=== PATIENT | female | born 1970 | race Caucasian/White ===

== ENCOUNTER 2016-12-31 10:41 | Emergency (ER) | payer MEDICARE, MEDICAID ==
[~2016-12-31] VITALS: Ht 162.6 cm; Wt 104.3 kg
[~2016-12-31 10:41] MED LIST: CEFD300C3 PO; CETI10TA17 PO; CETI10TA20 PO; CYCL10TA9 PO; DIAZ-345 PO; DIAZ5TAB3 PO; DOXY100C2 PO; HYDR-3729 PO; HYDR200T PO; HYDR200T46 PO; IBUP-1773 PO; METH20TA PO; Metoprolol Succinate PO; NAPR-243 PO; NAPR550T PO; NF-DICLOTA PO; NF-PILO5T PO; OMEP40CA36 PO; ONDA4TAB10 PO; OXYC-471 PO; PHEN37.53 PO; PILO5TAB PO; PRD10T PO; PRED20TA PO; RT-ALBUINH IH; SUMA5SPR2 NS; VALA1000 PO
--- OUTSIDE RECORDS SUMMARY | 2016-12-31 10:49 | XMS REPORT | Continuity of Care Document ---
Author Author [facility] Organization [facility] Address Unknown Phone Unavailable Care Team Providers Care Finishing Lab Technician Name Role Phone Oleksandr Perry PCP [phone] Source Comments Some departments are not documenting in the electronic medical record. If you do not see the information that you expected, contact Release of Information in the Health Information Management department at [phone] for further assistance in locating additional records.[facility] Active Allergies and Adverse Reactions Allergen Noted Date Severity Reactions Comments Amitriptyline 10/16/2016 Low SEE COMMENTS Pt states made her "depressed, crying, emotional" [place] 10/10/2016 Medium MENTAL STATUS CHANGES Current Medications Prescription Sig. Disp. Refills Start End Date Status Date cetirizine (ZYRTEC) 10 mg Take 10 mg by mouth every Active tablet morning. hydroxychloroquine Take 200 mg by mouth Active (PLAQUENIL) 200 mg tablet twice daily. Take with food. omeprazole DR(+) Take 40 mg by mouth daily Active (PRILOSEC) 40 mg capsule before breakfast. albuterol (PROAIR HFA) 90 Inhale 2 Puffs by mouth Active mcg/actuation inhaler into the lungs every 4 hours as needed for Wheezing or Shortness of Breath. Shake well before use. cyclobenzaprine Take 10 mg by mouth three Active (FLEXERIL) 10 mg tablet times daily as needed for Muscle Cramps. traMADol (ULTRAM) 50 mg Take 50 mg by mouth every Active tablet 6 hours as needed for Pain. SUMAtriptan(+) (IMITREX) Apply 1 [place] to one Active 5 mg/1 mL spry nostril as directed as Needed (migraines). Indications: MIGRAINE rivaroxaban (XARELTO) 15 Take 15mg by mouth TWICE 36 Tab 0 10/22/19 Active mg tablet DAILY until 11/09/15 then 17 switch to 20mg ONCE DAILY for a total length of therapy of 3 months. Take with food. aspirin/acetaminophen/caf Take 1-2 Tabs by mouth 30 Tab 0 10/22/19 Active feine(+) (EXCEDRIN every 8 hours as needed. 17 MIGRAINE) 250/250/65 mg tab rivaroxaban (XARELTO) 20 Take 1 Tab by mouth daily 67 Tab 0 11/09/19 01/16/20 Active mg tablet with dinner for 67 doses. 17 17 Begin after finished with 15mg by twice daily dosing. calcium carbonate/vitamin Take 1 Tab by mouth twice 60 Tab 1 10/22/19 Active D-3 (OSCAL-500+D) 1250 daily. Calcium Carb 17 mg/200 unit tablet 1250mg delivers 500mg elemental Ca melatonin 5 mg tab Take 1 Tab by mouth at 30 Tab 0 10/22/19 Active bedtime daily. 17 potassium chloride SR Take 1 Tab by mouth 30 Cap 3 11/05/19 Active (K-DUR) 20 mEq tablet daily. Take with a meal 17 and a full glass of water. albuterol 0.5% Inhale 2.5 mg solution by Active (PROVENTIL; VENTOLIN) 2.5 nebulizer as directed mg/0.5 mL nebulizer every 6 hours as needed solution for Shortness of Breath or Wheezing. furosemide (LASIX) 80 mg Take 1 Tab by mouth twice 60 Tab 11 11/07/19 Active tablet daily. 17 metOLazone (ZAROXOLYN) Take 1 Tab by mouth 10 Tab 0 11/23/19 Active 2.5 mg tablet daily. Take 1 tab 11/23, 1 17 tab 2/13 amoxicillin/K clavulanate Take 1 Tab by mouth every Active (AUGMENTIN) 875/125 mg 12 hours. Take with food. tablet mycophenolate mofetil Take on an empty stomach. 180 Tab 3 11/27/19 Active (CELLCEPT) 500 mg tablet Start with 1 tab once 17 daily and titrate up as directed diclofenac(+) (VOLTAREN) Apply 2 g topically to 3 Tube 3 11/29/19 Active 1 % topical gel affected area four times 17 daily as needed. Apply to bilateral hands. sulfamethoxazole-trimetho Take 1 tab daily three 12 Tab 1 11/30/19 Active prim (BACTRIM DS) 800-160 times per week. 17 mg tablet prednisone (DELTASONE) 20 Take along with 10mg 60 Tab 0 12/04/19 Active mg tablet tabs. Taper: 50mg daily 17 for 1 week, 40mg daily for 2 weeks, 30mg daily for 2 weeks, then by 5mg every 2 weeks prednisone (DELTASONE) 10 Take along with 20mg 60 Tab 0 12/04/19 Active mg tablet tabs. Taper: 50mg daily 17 for 1 week, 40mg daily for 2 weeks, 30mg daily for 2 weeks, then by 5mg every 2 weeks sacubitril/valsartan Take 1 Tab by mouth twice 60 Tab 11 12/07/19 Active (ENTRESTO) 49/51 mg daily. Take 1/2 tab in 17 tablet the AM the next 5 days and 1 tab in PM. Increase to 1 tab twice daily if you tolerate dose. spironolactone Take 1 Tab by mouth 30 Tab 11 12/18/19 Active (ALDACTONE) 25 mg tablet daily. Take with food. 17 metoprolol XL (TOPROL XL) Take 1 Tab by mouth twice 60 Tab 11 Active 50 mg extended release daily. 17 tablet magnesium oxide (MAG-OX) Take 1 Tab by mouth twice 60 Tab 11 12/18/19 Active 400 mg tablet daily. 17 gabapentin (NEURONTIN) Take 2 Caps by mouth 120 Cap 1 12/25/19 Active 100 mg capsule twice daily. 17 metoprolol XL (TOPROL XL) Take 1 Tab by mouth twice 60 Tab 1 10/22/19 12/18/19 Discontin 50 mg extended release daily. 17 17 ued tablet gabapentin (NEURONTIN) Take 2 Caps by mouth 120 Cap 1 10/22/1912/24 Discontin 100 mg capsule twice daily. 17 17 ued magnesium oxide (MAG-OX) Take 1 Tab by mouth twice 60 Tab 1 10/22/19 12/18/19 Discontin 400 mg tablet daily. 17 17 ued spironolactone Take 1 Tab by mouth 30 Tab 1 10/22/19 12/18/19 Discontin (ALDACTONE) 25 mg tablet daily. Take with food. 17 17 ued sacubitril/valsartan Take 1 Tab by mouth twice 60 Tab 3 11/07/19 Discontin (ENTRESTO) 24/26 mg daily. 17 17 ued tablet prednisone (DELTASONE) 20 Take 3 Tabs by mouth 30 Tab 0 11/21/19 Discontin mg tablet daily. 17 17 ued Active Problems Problem Noted Date Chronic systolic congestive heart failure, NYHA class 2 ([facility]) 12/06/2016 Thyroid nodule 11/29/2016 Overview: 7 mm on the right and 4 mm on the left on US 10/17/2016 DELLA (acute kidney injury) ([facility]) 11/08/2016 Patient is Zoroastrianism 10/19/2016 Acute subclavian vein thrombosis ([facility]) 10/19/2016 Chronic anticoagulation 10/19/2016 Myocarditis ([facility]) 10/18/2016 Acute systolic congestive heart failure ([facility]) 10/16/2016 Rheumatoid arthritis ([facility]) 10/12/2016 Severe mitral valve regurgitation 10/11/2016 Systemic lupus erythematosus ([facility]) 10/11/2016 Chronic rheumatic arthritis ([facility]) 10/11/2016 Tricuspid regurgitation 10/11/2016 HALILE on CPAP 10/11/2016 Migraines 10/11/2016 GERD (gastroesophageal reflux disease) 10/11/2016 Tachycardia 10/11/2016 Sepsis ([facility]) 10/11/2016 Most Recent Encounters Date Type Specialty Providers Description 12/25/2016 Telephone Allergy,Immunology and Garfield Pierre MD Other - blood in stool Rheumatology 12/25/2016 Telephone Cardiology Mer Styles LPN Other 12/24/2016 Refill Cardiology Mirian Lu RN Medication Refill 12/18/2016 Hospital Cardiology Abdi Lerma MD Encounter 12/18/2016 Ancillary Cardiology Abdi Lerma MD At risk for sudden Orders cardiac (Primary Dx) 12/17/2016 Telephone Cardiology Leann Logan, CAROLD Medication Request - Refills 12/07/2016 Telephone Cardiology Diamond Shannon, shaker out Question - Entresto 12/07/2016 Refill Cardiology Kimberlyn Sanders RN Medication Refill 12/06/2016 Office Visit Cardiology Deshaun Okeefe MD Heart Failure - 1 month f/u 12/06/2016 Documentation Cardiology Vivek Torrez RN 12/04/2016 Telephone Cardiology Marimar Gar Other 12/04/2016 Refill Allergy,Immunology and Garfield Pierre MD Rheumatology 11/30/2016 Telephone Allergy,Immunology and Garfield Pierre MD Medication Follow-up Rheumatology 11/28/2016 Telephone Cardiology Mirian Lu RN 11/28/2016 Telephone Allergy,Immunology and Garfield Pierre MD Medication Follow-up - Rheumatology Cellcept and Prednisone 11/28/2016 Telephone Cardiology Leann Logan, CAROLD Medication Question - Voltaren Use 11/27/2016 Office Visit Endocrinology Jorge John MD Thyroiditis , acute (Primary Dx); On prednisone therapy; Thyroid nodule; Adrenal insufficiency due to corticosteroid withdrawal (HCC); At risk for osteoporosis/osteopenia 11/27/2016 Office Visit Allergy,Immunology and Garfield Pierre MD Other systemic lupus Rheumatology erythematosus with other organ involvement (HCC) (Primary Dx); Acute rheumatic myocarditis; Polyarthralgia; Medication monitoring encounter 11/27/2016 Documentation Cardiology Mirian Lu, JAI Labs Only - T4 free 11/22/2016 Telephone Cardiology Diamond Shannon RN 11/22/2016 Telephone Terri Burgos RN Follow-up Phone Call 11/21/2016 Telephone Cardiology Es Nichols PHARMD Medication Problem - Out of prednisone 11/21/2016 Refill Allergy,Immunology and Kelsea Harper MD Rheumatology 11/19/2016 Documentation Cardiology Mirian Lu, JAI Labs Only 11/13/2016 Hospital Cardiology Abdi Lerma MD Encounter 11/13/2016 Telephone Cardiology Diamond Shannon RNcard hand 11/13/2016 Ancillary Cardiology Abdi Lerma MD At risk for sudden Orders cardiac (Primary Dx) 11/09/2016 Documentation Cardiology Mirian Lu RNcard hand - Entresto approved 11/08/2016 Telephone Cardiology Vivek Torrez RN 11/08/2016 Documentation Cardiology Lashay Gómez RN Lab Results - T3 11/07/2016 Office Visit Cardiology Abdi Lerma MD Post- hospital Follow Up - Deshaun Okeefe MD Acute systolic heart failure 2 weeks ago 11/07/2016 Office Visit Nephrology Brooke Timmons MD Other systemic lupus erythematosus with other organ involvement (HCC) (Primary Dx); Acute systolic congestive heart failure (HCC); Acute rheumatic myocarditis; Acute subclavian vein thrombosis, right; DELLA (acute kidney injury) ([facility]) 11/07/2016 Documentation Cardiology Joanne Chaudhry, JAI Research - Enroll[facility] HF Registry 11/05/2016 Documentation Cardiology Mirian Lu, JAI Labs Only - BMP 11/02/2016 Telephone Cardiology Kimberlyn Sanders RN Worsening Symptoms 11/01/2016 Telephone Terri Burgos RN Follow-up Phone Call 10/24/2016 Telephone Terri Burgos RN Follow-up Phone Call 10/22/2016 Telephone Allergy,Immunology and Kelesa Harper MD Appointment Rheumatology 10/18/2016 Orders Only Endocrinology, Metabolism Myranda Rodriguez MD Thyrotoxicosis, acute & Genetics (Primary Dx) 10/12/2016 Surgery Cardiology Cath, Physician Right Heart Catheterization 10/11/2016 Anesthesia Cardiology Lindsay Styles MD Event 10/10/2016 [facility] Trav Kim MD Acute systolic congestive - Encounter Bal Kim MBBS heart failure ([facility]) 10/22/2016 Seth Hdez MD Genton, Randall E, MD Haglund, Nicholas A, MD Freeman, Jonathan, MD Social History Tobacco Use Types Packs/Day Years Used Date Former Smoker Cigarettes 2 5 Quit: 10/10/2009 Smokeless Tobacco: Never Used Alcohol Use Drinks/Week oz/Week Comments No Last Filed Vital Signs Vital Sign Reading Time Taken Blood Pressure 96/72 12/06/2016 10:31 AM [employer]IC [employer]QU[employer]KER Pulse 86 12/06/2016 10:31 AM [employer] Temperature 36.5 C (97.7 F) 11/27/2016 9:29 AM [employer] Respiratory Rate 16 11/27/2016 9:29 AM [employer] Height 1.626 m (5' 4") 12/06/2016 10:31 AM [employer] Weight 98.431 kg (217 lb) 12/06/2016 10:31 AM [employer] Body Mass Index 37.23 12/06/2016 10:31 AM [employer] Oxygen Saturation 98% 12/06/2016 10:31 AM [employer] Plan of Care Date Type Specialty Providers Description 02/13/2017 Appoint[place] [address] [place] [address] [address] [place] [address] [phone] (Fax) 02/15/2017 Appointment Allergy,Immunology and Garfield Pierre MD Rheumatology [address] [facility] [address] [place] [address] [phone] (Fax) 05/07/2017 Appointment Nephrology Brooke Timmons MD [address] [facility] [address] [place] [address] [phone] (Fax) 05/28/2017 Appointment Endocrinology Jorge John MD [address] [facility] [address] [place] [address] [phone] (Fax) Health Maintenance Due Date Last Done Comments Physical (Comprehensive) 1979 Exam Pertussis Vaccine 1983 Tetanus Vaccine 1989 Cervical Cancer Screening 1993 Breast Cancer Screening 2012 Influenza Vaccine 06/14/2017 Procedures from Last 3 Months Procedure Name Priority Date/Time Associated Diagnosis Comments PROCEDURE RECORD-SCAN 11/28/2016 Results for this 1:05 PM [employer] procedure are in the results section. ECG UNCONFIRMED-SCAN 10/23/2016 Results for this 12:20 PM [employer] procedure are in the results section. ECG UNCONFIRMED-SCAN 10/23/2016 Results for this 12:20 PM [employer] procedure are in the results section. ECG UNCONFIRMED-SCAN 10/23/2016 Results for this 12:20 PM [employer] procedure are in the results section. TELEMETRY STRIPS-SCAN 10/23/2016 Results for this 12:14 PM [employer] procedure are in the results section. ECG-SCAN 10/20/2016 Results for this 1:16 PM [employer] procedure are in the results section. ECG-SCAN 10/12/2016 Results for this 7:19 AM [employer]IC [employer]QUOR [employer]KER procedure are in the results section. ECG-SCAN 10/12/2016 Results for this 7:19 AM [employer]IC [employer]QUOR [employer] procedure are in the results section. Results from Last 3 Months WEARABLE DEFIBRILLATOR INTERROGATION (12/18/2016 10:47 AM)Only the most recent of 2 results within the time period is included. Narrative [12/18/2016 10:49:12 AM - MARIMAR ROBISON] LifeVest download completed, no treatment events noted. Pt has had an average daily wear time of 21.53 hrs/day and has had 2 wear time alerts since last report. Forwarded to Dr. Lerma for co-signature. See scanned HRM Data Sheet for wear time report details. PROCEDURE RECORD-SCAN (11/28/2016 1:05 PM) Narrative Ordered by an unspecified provider. FREE T4 (FREE THYROXINE) ONLY (11/23/2016)Only the most recent of 5 results within the time period is included. Component Value Range T4-Free 1.08 0.75-1.7 Specimen Blood TSH WITH FREE T4 REFLEX (11/16/2016)Only the most recent of 2 results within the time period is included. Component Value Range TSH 0.41 T4-Free 1.23 Specimen Blood BASIC METABOLIC PANEL (11/16/2016)Only the most recent of 4 results within the time period is included. Component Value Range Sodium 136 Potassium 4.3 Chloride 94 (A) 98-107 CO2 28 Blood Urea Nitrogen 35 (A) 6-20 Creatinine 0.95 Glucose 93 Calcium 8.7 eGFR Non 60 eGFR 60 Anion Gap 14 Specimen Blood TOTAL T3 (TRIIODOTHYRONINE) (11/16/2016)Only the most recent of 4 results within the time period is included. Component Value Range T3 (Total) 55 (A) 80-200 Specimen Blood Narrative Last OV with AJS 11/07.Next OV 12/06/16.Routing to [facility] for review. POC URINE DIPSTICK MANUAL READ (11/07/2016) Component Value Range Urine Glucose POC norm Urine Bilirubin POC neg Urine Ketone POC neg Urine Specific [place] 1.015 POC Urine Blood POC 250 Urine PH POC 7 Urine Protein POC neg Urine Urobilinogen POC norm Urine Nitrite POC neg Urine Leukocytes POC neg Specimen Urine ECG UNCONFIRMED-SCAN (10/23/2016 12:20 PM) Narrative Ordered by an unspecified provider. ECG UNCONFIRMED-SCAN (10/23/2016 12:20 PM) Narrative Ordered by an unspecified provider. ECG UNCONFIRMED-SCAN (10/23/2016 12:20 PM) Narrative Ordered by an unspecified provider. TELEMETRY STRIPS-SCAN (10/23/2016 12:14 PM) Narrative Ordered by an unspecified provider. IRON + BINDING CAPACITY + %SAT (10/22/2016 6:16 AM) Component Value Range Iron 43 (L) 50-160 MCG/DL Iron Binding-TIBC 402 (H) 270-380 MCG/DL % Saturation 11 (L) 28-42 % CBC (10/22/2016 6:16 AM)Only the most recent of 3 results within the time period is included. Component Value Range White Blood Cells 10.2 4.5-11.0 K/UL RBC 3.18 (L) 4.0-5.0 M/UL Hemoglobin 9.8 (L) 12.0-15.0 GM/DL Hematocrit 29.7 (L) 36-45 % MCV 93.5 80-100 FL MCH 30.8 26-34 PG MCHC 32.9 32.0-36.0 G/DL RDW 13.5 11-15 % Platelet Count 220 150-400 K/UL MPV 8.1 7-11 FL Specimen Blood MAGNESIUM (10/22/2016 6:16 AM)Only the most recent of 10 results within the time period is included. Component Value Range Magnesium 1.8 1.6-2.6 mg/dL Specimen Blood COMPREHENSIVE METABOLIC PANEL (10/22/2016 6:16 AM)Only the most recent of 13 results within the time period is included. Component Value Range Sodium 136 (L) 137-147 MMOL/L Potassium 3.7 3.5-5.1 MMOL/L Chloride 96 (L) 98-110 MMOL/L Glucose 142 (H) 70-100 MG/DL Blood Urea Nitrogen 39 (H) 7-25 MG/DL Creatinine 1.45 (H) 0.4-1.00 MG/DL Calcium 9.6 8.5-10.6 MG/DL Total Protein 6.7 6.0-8.0 G/DL Total Bilirubin 0.3 0.3-1.2 MG/DL Albumin 3.4 (L) 3.5-5.0 G/DL Alk Phosphatase 113 (H) 25-110 U/L AST (SGOT) 31 7-40 U/L CO2 31 (H) 21-30 MMOL/L ALT (SGPT) 140 (H) 7-56 U/L Anion Gap 9 3-12 eGFR Non 39 (L)Comment: >60 mL/min The eGFR is not validated for use in drug dosing adjustments. Continue to use estimated creatinine clearance per dosing reference text. Please contact the Clinical Pharmacist for questions. eGFR 47 (L)Comment: >60 mL/min The eGFR is not validated for use in drug dosing adjustments. Continue to use estimated creatinine clearance per dosing reference text. Please contact the Clinical Pharmacist for questions. Specimen Blood ECG-SCAN (10/20/2016 1:16 PM) Narrative Ordered by an unspecified provider. CBC AND DIFF (10/20/2016 5:30 AM)Only the most recent of 11 results within the time period is included. Component Value Range White Blood Cells 8.5 4.5-11.0 K/UL RBC 2.93 (L) 4.0-5.0 M/UL Hemoglobin 8.9 (L) 12.0-15.0 GM/DL Hematocrit 26.7 (L) 36-45 % MCV 91.3 80-100 FL MCH 30.3 26-34 PG MCHC 33.2 32.0-36.0 G/DL RDW 13.6 11-15 % Platelet Count 210 150-400 K/UL MPV 8.4 7-11 FL Neutrophils 89 (H) 41-77 % Lymphocytes 8 (L) 24-44 % Monocytes 3 (L) 4-12 % Eosinophils 0 0-5 % Basophils 0 0-2 % Absolute Neutrophil Count 7.60 (H) 1.8-7.0 K/UL Absolute Lymph Count 0.60 (L) 1.0-4.8 K/UL Absolute Monocyte Count 0.20 0-0.80 K/UL Absolute Eosinophil Count 0.00 0-0.45 K/UL Absolute Basophil Count 0.00 0-0.20 K/UL Specimen Blood PTT (APTT) (10/19/2016 11:15 AM)Only the most recent of 5 results within the time period is included. Component Value Range APTT 89.5 (H) 24.0-40.0 SEC Specimen Blood PARVOVIRUS B19 AB IGG/IGM (10/19/2016 11:15 AM) Component Value Range Parvovirus IgG 5.30 (H)Comment: Reference range: <0.90 Unit: index Positive [facility], [address] [place] [phone] Parvovirus IgM 0.27Comment: Reference range: <0.90 Unit: index Negative [facility], [address] [place] [id number] Interpretation Results suggest past infection. [facility], [address] [place] [id number] Specimen Blood ECHOVIRUS AB PANEL (10/19/2016 11:15 AM) Component Value Range Echovirus 4 Antibody <1:8 Echovirus 7 Antibody <1:8 Echovirus 9 Antibody <1:8 Echovirus 11 Antibody <1:8 Echovirus 30 Antibody <1:8 REFERENCE RANGE: <1:8 INTERPRETIVE CRITERIA: <1:8 Antibody Not Detected > or=1:8 Antibody Detected Single titers > or=1:32 are indicative of recent infection. Titers of 1:8 and 1:16 may be indicative of either past or recent infection, since CF antibody levels persist for only a few months. A four-fold or greater increase in titer between acute and convalescent specimens confirms the diagnosis. There is considerable crossreactivity among enteroviruses; however, the highest titer is usually associated with the infecting serotype. This test was developed and its analytical performance characteristics have been determined by [facility]. It has not been cleared or approved by FDA. This assay has been validated pursuant to the CLIA regulations and is used for clinical purposes. Test Performed by: [facility], [address] [id number] [place] [address] Specimen Blood HEPATITIS C AB (10/19/2016 11:15 AM) Component Value Range Anti HCV NEG Specimen Blood HEPATITIS B SURFACE AG (10/19/2016 11:15 AM) Component Value Range HBsAg NEG Specimen Blood HEPATITIS B CORE AB TOT (IGG+IGM) (10/19/2016 11:15 AM) Component Value Range Anti HBc Total NEG Specimen Blood T SPOT TB (10/19/2016 11:15 AM) Component Value Range T Spot TB Negative The test result is Negative because the spot count in (Panel A minus Nil Control) and (Panel B minus Nil Control) is less than or equal to 4. This includes values less than zero.[id number]: Diagnosing or excluding tuberculosis disease, and assessing the probability of LTBI, requires a combination of epidemiological, historical, medical and diagnostic findings that should be taken into account when interpreting T-SPOT.TB test results. Refer to the most recent CDC guidance (http://www.cdc.gov/tb/publications/guidelines/def tobias.htm) for detailed recommendations on diagnosing TB infection (including disease) and selecting persons for testing. Guidelines set forth by the Centers of Disease Control and Prevention (CDC) recommend contacts of a person with tuberculosis (TB) disease who have a negative initial interferon-gamma release assay (IGRA) or TST within 8 weeks of exposure be retested 8 - 10 weeks after last exposure. [id number] Neg Control TB Spot Count 0 Panel A TB Spot Count 1 Panel B TB Spot Count 3 Pos Control TB Spot Count >20 Specimen Blood THIOPURINE METHYLTRANSFERASE RBC (10/18/2016 6:50 PM) Component Value Range Thiopurine S-Methyl 23.8 (L)Comment: (TPMT) Reference range: 24.0 to 44.0 Unit: U/mL Sample slightly hemolyzed. Please interpret the results with caution. INTERPRETIVE INFORMATION: Thiopurine Methyltransferase, RBC Normal TPMT activity: 24.0-44.0 U/mL................Individuals are predicted to be at low risk of bone marrow toxicity (myelosuppression) as a consequence of standard thiopurine therapy; no dose adjustment is recommended. Intermediate TPMT activity: 17.0-23.9 U/mL................Individuals are predicted to be at intermediate risk of bone marrow toxicity (myelosuppression) as a consequence of standard thiopurine therapy; a dose reduction and therapeutic drug management is recommended. Low TPMT activity: less than 17.0 U/mL...........Individuals are predicted to be at high risk of bone marrow toxicity (myelosuppression) as a consequence of standard thiopurine dosing. It is recommended to avoid the use of thiopurine drugs. High TPMT activity: greater than 44.0 U/mL........Individuals are not predicted to be at risk for bone marrow toxicity (myelosuppression) as a consequence of standard thiopurine dosing, but may be at risk for therapeutic failure due to excessive inactivation of thiopurine drugs. Individuals may require higher than the normal standard dose. Therapeutic drug management is recommended. The TPMT, RBC assay is used as a screen to detect individuals with low and intermediate TPMT activity who may be at risk for myelosuppression when exposed to standard doses of thiopurines, including azathioprine (Imuran) and 6-mercaptopurine (Purinethol). TPMT is the primary metabolic route for inactivation of thiopurine drugs in the bone marrow. When TPMT activity is low, it is predicted that proportionately more 6-mercaptopurine can be converted into the cytotoxic 6-thioguanine nucleotides that accumulate in the bone marrow causing excessive toxicity. The activity of TPMT is measured by the nanomoles of 6-methylmercaptopurine (inactive metabolite) produced per 1 mL of packed red blood cells, (U/mL). TPMT phenotype testing does not replace the need for clinical monitoring of patients treated with thiopurine drugs. Genotype for TPMT cannot be inferred from TPMT activity (phenotype). Phenotype testing should not be requested for patients currently treated with thiopurine drugs. Current TPMT phenotype may not reflect future TPMT phenotype, particularly in patients who received blood transfusion within 30-60 days of testing. TPMT enzyme activity can be inhibited by several drugs such as: naproxen (Aleve), ibuprofen (Advil, Motrin), ketoprofen (Orudis), furosemide (Lasix), sulfasalazine (Azulfidine), mesalamine (Asacol), olsalazine (Dipentum), mefenamic acid (Ponstel), thiazide diuretics, and benzoic acid inhibitors. TPMT inhibitors may contribute to falsely low results; patients should abstain from these drugs for at least 48 hours prior to TPMT testing. Falsely low results may also occur as a result of inappropriate specimen handling and hemolysis. Test developed and characteristics determined by [facility]. See Compliance Statement B: [email or web address] Performed by [facility], [address] [place] [id number] [email or web address], Catracho Russell MD, Lab. Director Specimen Blood US DOPPLER VENOUS W EXTRM RIGHT (10/18/2016 4:49 PM) Impressions Extensive incompletely occlusive right upper cephalic vein thrombus with unstable nonocclusive extension into the mid subclavian vein. These findings were discussed with patient's RN Ritika by phone at 5:10 PM on 10/18/2016. Approved by Paola Davies M.D. on 10/18/2016 5:15 PM By my electronic signature, I attest that I have personally reviewed the images for this examination and formulated the interpretations and opinions expressed in this report Finalized by Lazaro Lovell M.D. on 10/18/2016 6:06 PM. Dictated by Paola Davies M.D. on 10/18/2016 5:07 PM. Narrative US DOPPLER VENOUS W EXTRM RIGHT Clinical Indication: Female, 46 years old.erythema and warmth on Right Upper arm near PICC, R/O DVT. Comparison: Thyroid ultrasound October 17, 2016 Technique: Multiple real-time grayscale sonographic images were obtained throughout the right upper extremity with additional color Doppler and duplex acquisitions. Findings: There is extensive thrombus in the mid and upper portion of the right cephalic vein. The morphology is primarily consistent with subacute thrombus, however, there is incomplete occlusion in the area of the removed PICC in the mid upper arm. The thrombus extends from the cephalic vein to the midportion of the subclavian vein where it is high-grade though incompletely occlusive demonstrating a jerky motion during the cardiac cycle. This does not appear to be adherent to the vein wall. The portion within the subclavian vein is approximately 1.6 cm in length and 1.1 cm in diameter. The right axillary, brachial, and basilic veins are fully compressible without filling defects. The right internal jugular and upper innominate veins are widely patent. The small area of scarring or chronic thrombus in the right internal jugular vein adjacent to a valve leaflet is not demonstrated on this examination. There is no evidence of soft tissue mass or fluid collection identified. Procedure Note Interface, Radiant Results - [place] Oct 18, 2016 6:09 PM [employer] US DOPPLER VENOUS W EXTRM RIGHT Clinical Indication: Female, 46 years old. erythema and warmth on Right Upper arm near PICC, R/O DVT. Comparison: Thyroid ultrasound October 17, 2016 Technique: Multiple real-time grayscale sonographic images were obtained throughout the right upper extremity with additional color Doppler and duplex acquisitions. Findings: There is extensive thrombus in the mid and upper portion of the right cephalic vein. The morphology is primarily consistent with subacute thrombus, however, there is incomplete occlusion in the area of the removed PICC in the mid upper arm. The thrombus extends from the cephalic vein to the midportion of the subclavian vein where it is high-grade though incompletely occlusive demonstrating a jerky motion during the cardiac cycle. This does not appear to be adherent to the vein wall. The portion within the subclavian vein is approximately 1.6 cm in length and 1.1 cm in diameter. The right axillary, brachial, and basilic veins are fully compressible without filling defects. The right internal jugular and upper innominate veins are widely patent. The small area of scarring or chronic thrombus in the right internal jugular vein adjacent to a valve leaflet is not demonstrated on this examination. There is no evidence of soft tissue mass or fluid collection identified. IMPRESSION Extensive incompletely occlusive right upper cephalic vein thrombus with unstable nonocclusive extension into the mid subclavian vein. These findings were discussed with patient's RN Ritika by phone at 5:10 PM on 10/18/2016. Approved by Paola Davies M.D. on 10/18/2016 5:15 PM By my electronic signature, I attest that I have personally reviewed the images for this examination and formulated the interpretations and opinions expressed in this report Finalized by Lazaro Lovell M.D. on 10/18/2016 6:06 PM. Dictated by Paola Davies M.D. on 10/18/2016 5:07 PM. CULTURE-BLOOD W/SENSITIVITY (10/18/2016 3:11 PM)Only the most recent of 4 results within the time period is included. Component Value Range Battery Name BLOOD CULTURE Specimen Description BLOOD RIGHT ANTECUBITAL Special Requests NONE Culture NO GROWTH 5 DAYS Report Status FINAL 10/24/2016 Specimen Blood CULTURE-CATHETER TIP W/SENSITIVITY (10/18/2016 3:11 PM) Component Value Range Battery Name CATHETER TIP CULTURE Specimen Description CATHETER TIP PICC LINE TIP Special Requests NONE Culture NO GROWTH 5 DAYS Report Status FINAL 10/23/2016 Specimen Catheter Tip IODINE, URINE RAN (10/18/2016 10:01 AM) Component Value Range Iodine, Random 1009 (H)Comment: mcg/L Reference range: 26 to 705 ADDITIONAL INFORMATION This test was developed and its performance characteristics determined by [facility] in a manner consistent with CLIA requirements. This test has not been cleared or approved by the U.S. Food and Drug Administration. [facility], [address], [place] [address] TOXOPLASMA IGM (10/17/2016 6:49 PM) Component Value Range Toxoplasma IgM NEG Specimen Blood HIV AB SCREEN(1 AND 2) (10/17/2016 6:49 PM) Component Value Range HIV 1 and 2 AG AB Screen NEG NEG-NEG Specimen Blood COXSACKIE B 1-6 (10/17/2016 6:49 PM) Component Value Range Cox[place]ackie AB-B1 <1:8 [place] AB-B2 >=1:64 [place] AB-B3 1:32 [place] AB-B4 1:32 [place] AB-B5 <1:8 [place] AB-B6 <1:8 REFERENCE RANGE: <1:8 INTERPRETIVE CRITERIA: <1:8 Antibody Not Detected > or=1:8 Antibody Detected Single titers of > or=1:32 are indicative of recent infection. Titers of 1:8 or 1:16 may be indicative of either past or recent infection, since CF antibody levels persist for only a few months. A four-fold or greater increase in titer between acute and convalescent specimens confirms the diagnosis. There is considerable crossreactivity among enteroviruses; however, the highest titer is usually associated with the infecting serotype. This test was developed and its analytical performance characteristics have been determined by [facility]. It has not been cleared or approved by FDA. This assay has been validated pursuant to the CLIA regulations and is used for clinical purposes. Test Performed by: [facility], [address] [id number] [place] [address] Specimen Blood [facility] A 9 (10/17/2016 6:49 PM) Component Value Range [place] A9 <1:8 Reference range: <1:8 INTERPRETIVE INFORMATION: Coxsackie A Serotype 9 Titer Single positive antibody titers of greater than 1:32 may indicate past or current infection. Seroconversion or an increase in titers between acute and convalescent sera of at least fourfold is considered strong evidence of current or recent infection. Performed by [facility], [address] [place] [id number] [email or web address], Catracho Russell MD, Lab. Director Specimen Blood US THYROID (10/17/2016 2:12 PM) Impressions 1. Normal-sized thyroid gland, which is not hypervascular.There are tiny, subcentimeter benign-appearing nodules, one in each thyroid lobe. No morphologically suspicious nodules are identified to warrant biopsy. 2. Reactive and indeterminate left cervical lymph nodes. 3. Small amount of chronic-appearing thrombus associated with one of the valve leaflets in the lower right internal jugular vein. These findings were discussed with Dr. Zapata at 3:23 PM on 10/17/2016 by phone. Approved by Paola Davies M.D. on 10/17/2016 3:25 PM By my electronic signature, I attest that I have personally reviewed the images for this examination and formulated the interpretations and opinions expressed in this report Finalized by Conchita Byrd M.D. on 10/17/2016 4:44 PM. Dictated by Paola Davies M.D. on 10/17/2016 2:10 PM. Narrative US THYROID Clinical Indication: 46-year-old female, thyroiditis, right neck fullness Comparison: No prior studies are available for comparison. Technique: Multiple real time hyde scale sonographic images were obtained of the thyroid with color duplex imaging. Findings: The right lobe is normal in size measuring 5.4 x 1.8 x 1.9 cm. The right lobe parenchyma appears homogeneous apart from a small, 7 mm mildly complicated cyst which is most likely benign in nature. The right lobe is not hypervascular. The left lobe is normal in size measuring 5.7 x 1.5 x 2.1 cm. The left lobe parenchyma appears homogeneous apart from a solitary, tiny 4 mm nodule. The left thyroid gland is not hypervascular. The isthmus is normal in thickness without discrete mass. There are enlarged reactive appearing and indeterminate left cervical lymph nodes.The largest hypoechoic and indeterminate left supraclavicular lymph node measures 1.2 x 0.8 x 0.9 cm.No lymph nodes demonstrate calcification or cystic change. Focused images were obtained of the right internal jugular vein at site of palpable fullness as directed by patient in the region of prior [place] catheter insertion. There is a small amount of echogenic chronic appearing thrombus associated with one of the valve leaflets in the lower right internal jugular vein.Thrombus appears flattened and plaque-like along the surface of the valve (best appreciated on cine series 1D).The opposing valve leaflet appears normal with normal mobility. Procedure Note Interface, Radiant Results - SatOct 17, 2016 4:47 PM [employer] US THYROID Clinical Indication: 46-year-old female, thyroiditis, right neck fullness Comparison: No prior studies are available for comparison. Technique: Multiple real time hyde scale sonographic images were obtained of the thyroid with color duplex imaging. Findings: The right lobe is normal in size measuring 5.4 x 1.8 x 1.9 cm. The right lobe parenchyma appears homogeneous apart from a small, 7 mm mildly complicated cyst which is most likely benign in nature. The right lobe is not hypervascular. The left lobe is normal in size measuring 5.7 x 1.5 x 2.1 cm. The left lobe parenchyma appears homogeneous apart from a solitary, tiny 4 mm nodule. The left thyroid gland is not hypervascular. The isthmus is normal in thickness without discrete mass. There are enlarged reactive appearing and indeterminate left cervical lymph nodes. The largest hypoechoic and indeterminate left supraclavicular lymph node measures 1.2 x 0.8 x 0.9 cm. No lymph nodes demonstrate calcification or cystic change. Focused images were obtained of the right internal jugular vein at site of palpable fullness as directed by patient in the region of prior [place] catheter insertion. There is a small amount of echogenic chronic appearing thrombus associated with one of the valve leaflets in the lower right internal jugular vein. Thrombus appears flattened and plaque-like along the surface of the valve (best appreciated on cine series 1D). The opposing valve leaflet appears normal with normal mobility. IMPRESSION 1. Normal-sized thyroid gland, which is not hypervascular. There are tiny, subcentimeter benign-appearing nodules, one in each thyroid lobe. No morphologically suspicious nodules are identified to warrant biopsy. 2. Reactive and indeterminate left cervical lymph nodes. 3. Small amount of chronic-appearing thrombus associated with one of the valve leaflets in the lower right internal jugular vein. These findings were discussed with Dr. Zapata at 3:23 PM on 10/17/2016 by phone. Approved by Paola Davies M.D. on 10/17/2016 3:25 PM By my electronic signature, I attest that I have personally reviewed the images for this examination and formulated the interpretations and opinions expressed in this report Finalized by Conchita Byrd M.D. on 10/17/2016 4:44 PM. Dictated by Paola Davies M.D. on 10/17/2016 2:10 PM. NM PET HEART METABOLISM SARCOID (10/17/2016 1:14 PM) Impressions Increased FDG uptake throughout the left ventricle, greatest involving the anterolateral wall, consistent with moderate myocarditis. Approved by Brianna Rogel D.O. on 10/17/2016 5:10 PM By my electronic signature, I attest that I have personally reviewed the images for this examination and formulated the interpretations and opinions expressed in this report Finalized by Amarjit Gutierrez M.D. on 10/19/2016 7:22 PM. Dictated by Brianna Rogel D.O. on 10/17/2016 2:43 PM. Narrative PET HEART METABOLISM WITH FDG CLINICAL HISTORY: MYOCARDITIS COMPARISON: None RADIOPHARMACEUTICAL: 17.9 mCi IV Fluorine-18 fluorodeoxyglucose (FDG) TECHNIQUE: Following a high-carbohydrate meal, F-18 FDG was administered to the patient. Tomographic imaging of the heart was then obtained via attenuation correction PET scanning, and reviewed as tomographic images and polar maps. Comparison was made with perfusion imaging. FINDINGS: Limited CT images through the thorax demonstrate no mediastinal/hilar lymphadenopathy or pulmonary fibrosis. There is minimal left basilar atelectasis. Maximum blood pool SUV is 3.73. There is mildly increased activity along the apex of the right ventricle. Track Rep[employer] Person maximum SUV throughout the left ventricle: Anterior wall: 14.44 (index 104) Anterolateral wall: 15.49 (index 117) Inferolateral wall: 14.50 (index 146) Inferior wall: 12.09 (index 163) Inferior septum: 13.89 (index 143) Anterior septum: 13.47 (index 117) Procedure Note Interface, Radiant Results - SatOct 19, 2016 7:25 PM [employer] PET HEART METABOLISM WITH FDG CLINICAL HISTORY: MYOCARDITIS COMPARISON: None RADIOPHARMACEUTICAL: 17.9 mCi IV Fluorine-18 fluorodeoxyglucose (FDG) TECHNIQUE: Following a high-carbohydrate meal, F-18 FDG was administered to the patient. Tomographic imaging of the heart was then obtained via attenuation correction PET scanning, and reviewed as tomographic images and polar maps. Comparison was made with perfusion imaging. FINDINGS: Limited CT images through the thorax demonstrate no mediastinal/hilar lymphadenopathy or pulmonary fibrosis. There is minimal left basilar atelectasis. Maximum blood pool SUV is 3.73. There is mildly increased activity along the apex of the right ventricle. Track Repair Person maximum SUV throughout the left ventricle: Anterior wall: 14.44 (index 104) Anterolateral wall: 15.49 (index 117) Inferolateral wall: 14.50 (index 146) Inferior wall: 12.09 (index 163) Inferior septum: 13.89 (index 143) Anterior septum: 13.47 (index 117) IMPRESSION Increased FDG uptake throughout the left ventricle, greatest involving the anterolateral wall, consistent with moderate myocarditis. Approved by Brianna Rogel D.O. on 10/17/2016 5:10 PM By my electronic signature, I attest that I have personally reviewed the images for this examination and formulated the interpretations and opinions expressed in this report Finalized by Amarjit Gutierrez M.D. on 10/19/2016 7:22 PM. Dictated by Brianna Rogel D.O. on 10/17/2016 2:43 PM. DHEA SULFATE (10/17/2016 8:50 AM) Component Value Range Dehydroepiand Sulfate 48 19-231 MCG/DL Specimen Blood ACTH (10/17/2016 8:50 AM) Component Value Range Adrenocorticotropic 18Comment: Hormone Unit: pg/mL REFERENCE VALUE 10-60 (a.m. collection) [facility], [address] [place] [id number] Specimen Blood CORTISOL-AM (10/17/2016 8:50 AM) Component Value Range Cortisol-AM 16.2 6.7-22.6 MCG/DL Specimen Blood US DOPPLER ABD PELV RETROPER COMP (10/16/2016 4:30 PM) Impressions Patent renal arteries without evidence of renal artery stenosis. Approved by Paola Davies M.D. on 10/16/2016 5:06 PM By my electronic signature, I attest that I have personally reviewed the images for this examination and formulated the interpretations and opinions expressed in this report Finalized by Conchita Byrd M.D. on 10/16/2016 5:33 PM. Dictated by Paola Davies M.D. on 10/16/2016 4:31 PM. Narrative Renal Doppler Ultrasound Clinical Indication: 46-year-old female, evaluate for renal artery fibromuscular dysplasia. Technique: Multiple grayscale sonographic images were obtained through the urinary system with additional color and spectral Doppler acquisitions. Comparison: Renal ultrasound 10/12/2016 Findings: Right kidney: The intrarenal resistive indices are normal, ranging 0.59-0.70. Systolic acceleration is normal. The maximum right renal artery velocity is 59 cm/sec. The right renal vein is patent. Left kidney: The intrarenal resistive indices are normal, ranging 0.61-0.73. Systolic acceleration is normal. The maximum left renal artery velocity is 68cm/ sec. The left renal vein is patent. Visualized portions of the aorta are normal in caliber without aneurysmal dilatation.Peak systolic velocity in the proximal aorta is 93 cm/sec. Procedure Note Interface, Radiant Results - Tue Oct 16, 2016 5:36 PM [employer] Renal Doppler Ultrasound Clinical Indication: 46-year-old female, evaluate for renal artery fibromuscular dysplasia. Technique: Multiple grayscale sonographic images were obtained through the urinary system with additional color and spectral Doppler acquisitions. Comparison: Renal ultrasound 10/12/2016 Findings: Right kidney: The intrarenal resistive indices are normal, ranging 0.59-0.70. Systolic acceleration is normal. The maximum right renal artery velocity is 59 cm/sec. The right renal vein is patent. Left kidney: The intrarenal resistive indices are normal, ranging 0.61-0.73. Systolic acceleration is normal. The maximum left renal artery velocity is 68cm/ sec. The left renal vein is patent. Visualized portions of the aorta are normal in caliber without aneurysmal dilatation. Peak systolic velocity in the proximal aorta is 93 cm/sec. IMPRESSION Patent renal arteries without evidence of renal artery stenosis. Approved by Paola Davies M.D. on 10/16/2016 5:06 PM By my electronic signature, I attest that I have personally reviewed the images for this examination and formulated the interpretations and opinions expressed in this report Finalized by Conchita Byrd M.D. on 10/16/2016 5:33 PM. Dictated by Paola aDvies M.D. on 10/16/2016 4:31 PM. LIMITED ECHOCARDIOGRAM (10/16/2016 11:05 AM) Component Value Range BSA 1.99 m2 ECHO EF 30 % CV ECHO PV COP BREAKER JAI Hyatt LVIDD 6.2 3.9-5.3 cm LVIDS 5.1 cm IVS 0.8 0.6-0.9 cm PW 0.7 0.6-0.9 cm FS 17.74 28-44 % EF 30.16 % LA size 4.3 2.7-3.8 cm LA volume 85.0 22-52 mL Left Atrium Index 42.71 10-32 Right Ventricular Basal 3.7 cm (2.4-4.2) Diameter Right Atrial Area 16.0 cm2 (<=18) Right Ventricular Mid 2.2 cm (2.0-3.5) Diameter Right Ventricular Long 7.7 cm (5.6-8.6) Diameter Sinus 2.4 2.1-3.5 cm Narrative Mildly dilated LV cavity with severe diffuse hypokinesis. LVEF 30%. Biatrial enlargement. Normal valve structure. No pericardial effusion. Comparison was made to study dated 10/12/2016, which was a 2D + doppler study. There appears to have been some minimal interval improvement in overall LV function. CHEST 2 VIEWS (10/15/2016 1:40 PM) Impressions Removal of the right IJ pulmonary arterial catheter. No acute cardiopulmonary abnormality. Approved by Sherly Zazueta M.D. on 10/16/2016 11:13 AM By my electronic signature, I attest that I have personally reviewed the images for this examination and formulated the interpretations and opinions expressed in this report Finalized by Dylon Burgos M.D. on 10/16/2016 1:03 PM. Dictated by Sherly Zazueta M.D. on 10/16/2016 10:19 AM. Narrative CHEST 2 VIEWS Clinical Indication:new cough. Comparison: Chest radiograph 10/13/2016. Findings: There is a right PICC with tip projected over the cavoatrial junction. Right IJ pulmonary arterial catheter has been removed. The cardiac silhouette and pulmonary vasculature are within normal limits. No new focal airspace consolidation or pleural effusion is seen. No pneumothorax is identified. Procedure Note Interface, Radiant Results - Tue Oct 16, 2016 1:07 PM [employer] CHEST 2 VIEWS Clinical Indication: new cough. Comparison: Chest radiograph 10/13/2016. Findings: There is a right PICC with tip projected over the cavoatrial junction. Right IJ pulmonary arterial catheter has been removed. The cardiac silhouette and pulmonary vasculature are within normal limits. No new focal airspace consolidation or pleural effusion is seen. No pneumothorax is identified. IMPRESSION Removal of the right IJ pulmonary arterial catheter. No acute cardiopulmonary abnormality. Approved by Sherly Zazueta M.D. on 10/16/2016 11:13 AM By my electronic signature, I attest that I have personally reviewed the images for this examination and formulated the interpretations and opinions expressed in this report Finalized by Dylon Burgos M.D. on 10/16/2016 1:03 PM. Dictated by Sherly Zazueta M.D. on 10/16/2016 10:19 AM. URINALYSIS, MICROSCOPIC (10/13/2016 8:00 PM)Only the most recent of 2 results within the time period is included. Component Value Range WBCs,UA 0-2 0-2 /HPF RBCs,UA 0-2 0-3 /HPF MucousUA TRACE Squamous Epithelial Cells 2-5 0-5 Specimen Urine URINALYSIS DIPSTICK (10/13/2016 8:00 PM)Only the most recent of 2 results within the time period is included. Component Value Range Color,UA STRAW Turbidity,UA CLEAR CLEAR-CLEAR Specific [place]-Urine 1.010 1.003-1.035 pH,UA 5.0 5.0-8.0 Protein,UA NEG NEG-NEG Glucose,UA NEG NEG-NEG Ketones,UA NEG NEG-NEG Bilirubin,UA NEG NEG-NEG Blood,UA 1+ (A) NEG-NEG Urobilinogen,UA NORMAL NORM-NORMAL Nitrite,UA NEG NEG-NEG Leukocytes,UA NEG NEG-NEG Urine Ascorbic Acid, UA NEG NEG-NEG Specimen Urine URINE COLLECTION (10/13/2016 7:55 PM) Component Value Range Collection Period, Urine 24.0 Volume, Urine 1274 MLS TOTAL PROTEIN-URINE 24 HR (10/13/2016 7:55 PM) Component Value Range Protein, Random 33 MG/DL Protein, 24 HR 420 (H) 50-150 MG/24 HRS Specimen Urine CHEST SINGLE VIEW (10/13/2016 8:34 AM)Only the most recent of 3 results within the time period is included. Impressions Placement of right IJ pulmonary arterial catheter as described above. Approved by Paola Davies M.D. on 10/14/2016 8:54 AM By my electronic signature, I attest that I have personally reviewed the images for this examination and formulated the interpretations and opinions expressed in this report Finalized by Amarjit Gutierrez M.D. on 10/14/2016 9:32 AM. Dictated by Paola Davies M.D. on 10/14/2016 7:41 AM. Narrative Procedure: CHEST SINGLE VIEW Clinical Indication: Pulmonary arterial catheter placement Comparison: Chest x-ray October 12, 2016 Findings: Right PICC remains in place. Placement of a right IJ pulmonary arterial catheter with the distal tip projected well out into the right pulmonary artery. The heart size and pulmonary vasculature are unremarkable. Generalized hazy opacity in the lower half of the left hemithorax is likely superimposed breast tissue. No pleural effusion, pneumothorax or focal consolidative process is identified. Procedure Note Interface, Radiant Results - Sun Oct 14, 2016 9:35 AM [employer] Procedure: CHEST SINGLE VIEW Clinical Indication: Pulmonary arterial catheter placement Comparison: Chest x-ray October 12, 2016 Findings: Right PICC remains in place. Placement of a right IJ pulmonary arterial catheter with the distal tip projected well out into the right pulmonary artery. The heart size and pulmonary vasculature are unremarkable. Generalized hazy opacity in the lower half of the left hemithorax is likely superimposed breast tissue. No pleural effusion, pneumothorax or focal consolidative process is identified. IMPRESSION Placement of right IJ pulmonary arterial catheter as described above. Approved by Paola Davies M.D. on 10/14/2016 8:54 AM By my electronic signature, I attest that I have personally reviewed the images for this examination and formulated the interpretations and opinions expressed in this report Finalized by Amarjit Gutierrez M.D. on 10/14/2016 9:32 AM. Dictated by Paola Davies M.D. on 10/14/2016 7:41 AM. O2 SATURATION, MIXED VENOUS (10/13/2016 4:00 AM) Component Value Range [id number] Venous 60.0 % Specimen Blood CARDIAC CATH REPORT (10/12/2016 9:52 PM) Procedure Note SatOct 12, 2016 5:36 PM [employer] [facility] [facility] CARDIAC CATHETERIZATION REPORT Page 2 [place]SE[place] : 1970 KU#: [id number] MOE MR #/Billing ID #: [id number] / [id number] DATE: 10/12/2016 MAGNAFLUX OPERATOR: Vikas Oneal MD DICTATING PROVIDER: NICOLLE Cruz REFERRING PHYSICIAN: Bal Kim MD HISTORY AND INDICATION: Ms. Hewitt is a pleasant 46-year-old female who has been diagnosed with heart failure with reduced ejection fraction. Her EF is around 20%. She has been admitted with acute decompensation of heart failure, tachycardia, and arrhythmia. She has been referred to us for right heart catheterization and placement of a [place]-Ben catheter. PROCEDURES PERFORMED: 1. Right heart catheterization. 2. Placement of a [place] catheter in the pulmonary artery. CONSENT: Informed consent was obtained after a thorough discussion of the risks , benefits, and alternatives. The patient demonstrated understanding and wished to proceed. PROCEDURE IN DETAIL: The patient was brought to the cardiac catheterization laboratory in a fasting, nonsedated state. A total of 75 mcg of fentanyl and 1.5 mg of Versed were utilized to achieve IV conscious sedation. Conscious sedation was monitored throughout the procedure by Dr. Oneal, myself, nursing, and technical staff. Blood pressure, heart rate, oxygen saturation, and level of consciousness were assessed throughout the procedure and at its conclusion. The right neck was prepped and draped in a sterile fashion. We administered 5 mL of 1% lidocaine to achieve local anesthesia. A 7-Slovak fast catheter was introduced into the right internal jugular vein utilizing modified Seldinger technique. The access was gained under ultrasound guidance. Once the sheath was placed in, a 7.5-Slovak [place]-Ben catheter was utilized to perform right heart catheterization. The position of the tip of the catheter was confirmed by the waveform and utilizing the fluoroscopy. We achieved the pressures from the right atrium, right ventricle, and pulmonary artery, and also obtained wedge pressures. Blood samples were drawn from the right atrium and pulmonary artery to obtain the saturation. We also performed a cardiac output utilizing thermodilution technique. At the conclusion of the case, the [place] catheter was left in the pulmonary artery at 45 cm, and the patient was transferred back to the coronary care unit in a stable pain-free state. RIGHT HEART CATHETERIZATION: The patient's blood pressure was 97/73 mmHg with a mean pressure of 83 beats per minute. Heart rate was 105 beats per minute. Mean artery pressure 8 mmHg. RV systolic pressure 28 mmHg. RV diastolic pressure 5 mmHg. Mean RA pressure 10. RV end-diastolic pressure 10 mmHg. PA systolic pressure 32 mmHg. PA diastolic pressure 10 mmHg. Mean PA pressure 20 mmHg. Pulmonary capillary wedge pressure 12 mmHg. Saturations: RA saturation 66%, PA saturation 65%, Aortic saturation 98%. Cardiac output by thermodilution 3.75. Cardiac index by thermodilution 1.9. Cardiac output by Bethanie technique 4.5, cardiac index by Bethanie technique 2.3. TOTAL FLUORO TIME: 1.2 minutes. TOTAL AIR KERMA: 5 mGy. IMPRESSION: 1. Normal pulmonary artery pressures and pulmonary capillary wedge pressure. 2. Low-normal cardiac output and cardiac index. Dr. Oneal was present, supervised, and did the house portions of the procedure. Vikas Oneal MD ZIS/MedQ /[id number] P cc: - Bal Kim MD [employer] (10/12/2016 4:08 PM) Impressions Symmetric renal size without evidence of hydronephrosis or nephrolithiasis. Approved by Jeromy Meza M.D. on 10/12/2016 4:34 PM By my electronic signature, I attest that I have personally reviewed the images for this examination and formulated the interpretations and opinions expressed in this report Finalized by Conchita Byrd M.D. on 10/12/2016 5:19 PM. Dictated by Jeromy Meza M.D. on 10/12/2016 4:27 PM. Narrative Renal Ultrasound Clinical Indication: Left flank pain, nephrolithiasis Technique: Multiple real-time grayscale sonographic images were obtained through the urinary system. Findings: Comparison: None The right kidney measures 11.4 cm.The left kidney measures 10.8 cm.No hydronephrosis or nephrolithiasis identified. The urinary bladder is nondistended. Procedure Note Interface, Radiant Results - SatOct 12, 2016 5:22 PM [employer]IC [employer] MAKER Renal Ultrasound Clinical Indication: Left flank pain, nephrolithiasis Technique: Multiple real-time grayscale sonographic images were obtained through the urinary system. Findings: Comparison: None The right kidney measures 11.4 cm. The left kidney measures 10.8 cm. No hydronephrosis or nephrolithiasis identified. The urinary bladder is nondistended. IMPRESSION Symmetric renal size without evidence of hydronephrosis or nephrolithiasis. Approved by Jeromy Meza M.D. on 10/12/2016 4:34 PM By my electronic signature, I attest that I have personally reviewed the images for this examination and formulated the interpretations and opinions expressed in this report Finalized by Conchita Byrd M.D. on 10/12/2016 5:19 PM. Dictated by Jeromy Meza M.D. on 10/12/2016 4:27 PM. 2-D + DOPPLER ECHOCARDIOGRAM (10/12/2016 11:38 AM) Component Value Range BSA 1.99 m2 ECHO EF 15 % CV ECHO PV COP BREAKER JAI Sommer LVIDD 6.0 3.9-5.3 cm LVIDS 5.3 cm IVS 0.8 0.6-0.9 cm PW 0.9 0.6-0.9 cm FS 11.67 28-44 % EF 19.84 % LA size 3.4 2.7-3.8 cm LA volume 40.6 22-52 mL Left Atrium Index 20.40 10-32 Right Ventricular Basal 2.7 cm (2.4-4.2) Diameter Right Atrial Area 8.9 cm2 (<=18) Right Ventricular Mid 2.4 cm (2.0-3.5) Diameter Right Ventricular Long 7.3 cm (5.6-8.6) Diameter Sinus 2.4 2.1-3.5 cm AV peak velocity 1.0 m/s MV Comp diameter 2.0 cm MV Comp area 3.14 cm2 MV Comp VTI 11 cm MV Comp SV 34.54 cm3 MV Incomp diameter 3.3 cm MV Incomp area 8.55 cm2 MV Incomp VTI 11 cm MV Incomp SV 94.05 cm3 MV regurgitant volume 59.51 cc MV regurgitation fraction 63.27 % MV vena contracta 0.70 cm Vn Nyquist 0.34 m/s Radius 0.7 cm Mr max daya 4.6 m/s MR PISA EROA 0.23 cm2 TV rest pulmonary artery 28 mmHg pressure Narrative Moderate dilated, spherical LV Severe, diffuse LV systolic dysfunction, EF 15% Severe LV diastolic dysfunction Moderately severe functional mitral regurgitation Moderate functional tricuspid regurgitation THYROTROPIN (TSH) RECEPTOR AB (10/12/2016 11:00 AM) Component Value Range TSH Receptor AB <1.00 Reference range: 0.00 to 1.75 Unit: IU/L ADDITIONAL INFORMATION At a decision limit of 1.75 IU/L, this assay has 97% sensitivity and 99% specificity for detection of Graves' disease. In healthy individuals and in patients with thyroid disease without diagnosis of Graves' disease, the upper limit of anti-TSHR values are 1.22 IU/L and 1.58 IU/L, respectively (97.5th percentiles). [facility], [address], [place] [address] Specimen Blood THYROID STIM IMMUNOGLOBULIN(TSI) (10/12/2016 11:00 AM) Component Value Range TSI <1.0 Reference range: <=1.3 Unit: TSI index [facility] Specimen Blood ANTI-THYROPEROXIDASE (MICROSOMAL)AB (10/12/2016 11:00 AM) Component Value Range Microsomal AB, TPO <3.00 <5.61 IU/ML Specimen Blood UREA NITROGEN-URINE RANDOM (10/12/2016 9:54 AM) Component Value Range Urea Nitrogen 203 MG/DL Specimen Urine CREATININE-URINE RANDOM (10/12/2016 9:54 AM) Component Value Range Creatinine, Random 100 MG/DL Specimen Urine ANTI-SCL 70 ANTIBODY (10/12/2016 9:35 AM) Component Value Range SCL70 Ab 0.3Comment: Reference range: <1.0 (Negative) Unit: [facility] ANTI-ORQUIDEA-1 (10/12/2016 9:35 AM) Component Value Range Orquidea 1 Antibody <0.2 Reference range: <1.0 (Negative) Unit: [facility] ANTI-CENTROMERE ANTIBODY (10/12/2016 9:35 AM) Component Value Range Centromere Antibody <0.2 Reference range: <1.0 (Negative) Unit: U [facility] ECG-SCAN (10/12/2016 7:19 AM) Narrative Ordered by an unspecified provider. ECG-SCAN (10/12/2016 7:19 AM) Narrative Ordered by an unspecified provider. PROTEIN/CR RATIO,UR RAN (10/12/2016 2:20 AM) Component Value Range Protein, Random 114 MG/DL Creatinine, Random 92 MG/DL Protein/CR ratio 1.2 Specimen Urine THYROID STIMULATING HORMONE-TSH (10/12/2016 2:15 AM) Component Value Range TSH 0.191 (L) 0.35-5.00 MCU/ML VANCOMYCIN TROUGH (10/12/2016 2:15 AM) Component Value Range Vancomycin Trough 26.9 (H) 10.0-20.0 MCG/ML Specimen Blood, venous - Blood SED RATE (10/11/2016 9:08 PM) Component Value Range Sed Rate -ESR 23 (H) 0-20 MM/HR C REACTIVE PROTEIN (CRP) (10/11/2016 8:15 PM) Component Value Range C-Reactive Protein 4.27 (H) <1.0 MG/DL Specimen Blood CARDIOLIPIN AB IGG/IGM (10/11/2016 8:15 PM) Component Value Range Cardiolipin, IgG 4.8 <15 GPL/ML Cardiolipin, IgM 9.8 <12.5 MPL/ML Specimen Blood DILUTE BRENNA VIPER VENOM (10/11/2016 8:15 PM) Component Value Range Dilute Brenan Viper 1.0 <1.3 RATIO Venom DRVVT Comment Dilute Brenna viper venom time ratio (DRVVT) is negative for lupus anticoagulant. The hexagonal phase phospholipid neutralization test is also negative, which combined with the negative DRVVT is sufficient to exclude the diagnosis of lupus anticoagulant. Pathologist Signature INTERPRETED BY LINDSAY COBIAN M.D. 10/29/16 By the PATH SIGNATURE ABOVE, I attest that I have personally formulated the final interpretation expressed in this report and that the above diagnosis is based upon my examination of the slides and/or other material indicated in this report. Specimen Blood HEX LUPUS ANTICOAGULANT (10/11/2016 8:15 PM) Component Value Range Hexagonal Lupus 4Comment: Anticoagulant Unit: sec This value is NEGATIVE. This is a qualitative assay and is therefore reported as positive for lupus anticoagulant or negative. The quantitative value is provided as an aid in diagnosis. Reference Range: 0 - 11 This test was developed and its performance characteristics determined by [facility]. It has not been cleared or approved by the Food and Drug Administration. Test Performed by: [facility] [address] [address] Specimen Blood BETA 2 GLYCOPROTEIN 1 AB, IGM (10/11/2016 8:15 PM) Component Value Range BETA-2 GLY 1 AB IGM 4.9 0-20 [facility] Specimen Blood BETA 2 GLYCOPROTEIN 1 AB, IGG (10/11/2016 8:15 PM) Component Value Range BETA-2 GLY 1 AB ICG 1.2 0-20 [facility] Specimen Blood ANTI SSA ANTI SSB AB (10/11/2016 8:15 PM) Component Value Range Anti-SSA POS (A) NEG-NEG Anti-SSB NEG NEG-NEG Specimen Blood ANTI-CYCLIC CITRULLINATED PEPT (10/11/2016 8:15 PM) Component Value Range Anit-CCP IgG 0.5 <5.0 [IU]/mL Specimen Blood C4 COMPLEMENT 4 (10/11/2016 8:15 PM) Component Value Range Complemnt C4 8.0 (L) 10-49 MG/DL Specimen Blood C3 COMPLEMENT 3 (10/11/2016 8:15 PM) Component Value Range Complemnt C3 120.0 88-200 MG/DL Specimen Blood HAND MIN 3 VIEWS BILATERAL (10/11/2016 7:10 PM) Impressions No erosions or acute osseous abnormality of the bilateral hands. Approved by Brett Mtz M.D. on 10/12/2016 10:08 AM By my electronic signature, I attest that I have personally reviewed the images for this examination and formulated the interpretations and opinions expressed in this report Finalized by Brad Perry M.D. on 10/12/2016 6:15 PM. Dictated by Brett Mtz M.D. on 10/12/2016 8:17 AM. Narrative HAND MIN 3 VIEWS BILATERAL CLINICAL HISTORY: Female, 46 years old. History of RA, SLE. COMPARISON:None FINDINGS: TECHNIQUE: 3 views of the right and 3 views of the left hand are obtained. Right hand: There is no acute fracture or dislocation. The visualized distal radius and ulna are intact. The carpal bones are intact. There are no focal osseous lesions.The carpometacarpal, metacarpal phalangeal, and interphalangeal joint spaces are well maintained. The surrounding soft tissue structures are unremarkable. There are no radiopaque foreign bodies. Left hand: There is no acute fracture or dislocation. Old fracture deformity of the fifth metacarpal. The visualized distal radius and ulna are intact. The carpal bones are intact. There are no focal osseous lesions.The carpometacarpal, metacarpal phalangeal, and interphalangeal joint spaces are well maintained. The surrounding soft tissue structures are unremarkable. There are no radiopaque foreign bodies. Procedure Note Interface, Radiant Results - SatOct 12, 2016 6:18 PM [employer]ER HAND MIN 3 VIEWS BILATERAL CLINICAL HISTORY: Female, 46 years old. History of RA, SLE. COMPARISON: None FINDINGS: TECHNIQUE: 3 views of the right and 3 views of the left hand are obtained. Right hand: There is no acute fracture or dislocation. The visualized distal radius and ulna are intact. The carpal bones are intact. There are no focal osseous lesions. The carpometacarpal, metacarpal phalangeal, and interphalangeal joint spaces are well maintained. The surrounding soft tissue structures are unremarkable. There are no radiopaque foreign bodies. Left hand: There is no acute fracture or dislocation. Old fracture deformity of the fifth metacarpal. The visualized distal radius and ulna are intact. The carpal bones are intact. There are no focal osseous lesions. The carpometacarpal, metacarpal phalangeal, and interphalangeal joint spaces are well maintained. The surrounding soft tissue structures are unremarkable. There are no radiopaque foreign bodies. IMPRESSION No erosions or acute osseous abnormality of the bilateral hands. Approved by Brett Mtz M.D. on 10/12/2016 10:08 AM By my electronic signature, I attest that I have personally reviewed the images for this examination and formulated the interpretations and opinions expressed in this report Finalized by Brad Perry M.D. on 10/12/2016 6:15 PM. Dictated by Brett Mtz M.D. on 10/12/2016 8:17 AM. TRANSESOPHAGEAL ECHOCARDIOGRAM (10/11/2016 3:03 PM) Component Value Range BSA 1.99 m2 ECHO EF 15 % Referring Provider Oleksandr Perry CV ECHO PV COP BREAKER JAI Salinas Narrative 1.Dilated, spherical, left ventricle with severely depressed function. Ejection fraction=15-20%. 2.Normal mitral valve leaflets.No vegetation.Mild to moderate functional regurgitation. 3.Normal right ventricle size.Moderately reduced function. 4.Normal tricuspid valve leaflets.No vegetation.Mild functional regurgitation. 5.No previous study for comparison. TROPONIN-I (10/11/2016 9:56 AM)Only the most recent of 3 results within the time period is included. Component Value Range Troponin-I 0.02 0.0-0.05 NG/ML Specimen Blood ANTI-NUCLEAR AB(LAUREANO)-QUANT (10/11/2016 3:55 AM) Component Value Range LAUREANO Titer/Pattern > IZ=[id number]: <80 SPECKLED RESEMBLES SSA ANTI GALINDO(SM) ANTI PURCHASE REQUEST EDITOR AB (10/11/2016 3:55 AM) Component Value Range Anti-Galindo POS (A) NEG-NEG Anti-PURCHASE REQUEST EDITOR POS (A) NEG-NEG Specimen Blood ANTI-DNA DOUBLE STRAND (10/11/2016 3:55 AM) Component Value Range DNA Double Strand AB <10 <10 TITER Specimen Blood RHEUMATOID FACTOR (RF) (10/11/2016 3:55 AM) Component Value Range Rheum Factor Screen 31 (H) <24 IU/mL Specimen Blood ANTI-NUCLEAR ANTIBODY(LAUREANO) (10/11/2016 3:55 AM) Component Value Range LAUREANO Screen SEE TITER <80 TITER Specimen Blood LACTIC ACID(LACTATE) (10/10/2016 7:38 PM) Component Value Range Lactic Acid 0.9 0.5-2.0 MMOL/L Specimen Blood FREE T4-FREE THYROXINE (10/10/2016 7:35 PM) Component Value Range T4-Free 2.5 (H) 0.6-1.6 NG/DL BNP (B-TYPE NATRIURETIC PEPTI) (10/10/2016 7:35 PM) Component Value Range B Type Natriuretic 625.0 (H) 0-100 PG/ML Peptide Specimen Blood LIPID PROFILE (10/10/2016 7:35 PM) Component Value Range Cholesterol 152 <200 MG/DL Triglycerides 109 <150 MG/DL HDL 35 (L) >40 MG/DL LDL 90 <100 MG/DL VLDL 22 MG/DL Non HDL Cholesterol 117Comment: MG/DL Calculated non-HDL Cholesterol (non-HDL-C) indirectly measures LDL-C, Lp(a), IDL-C, and VLDL-C. It is a surrogate marker for Apoprotein B. Non-HDL-C is a more accurate measure of atherogenic particle concentration than LDL-C in patients with hypertriglyceridemia (>200 mg/dL). This calculation is now recommended for evaluation and treatment of coronary heart disease according to the National Cholesterol Education Program Adult Treatment Protocol-III. See Ashraf et al. Am J. Cardiol. 2008, 101:8605-7321. The "goal" should be less than 130 mg/dL, but will vary according to risk factors. Specimen Blood HEMOGLOBIN A1C (10/10/2016 7:35 PM) Component Value Range Hemoglobin A1C 5.2Comment: 4.0-6.0 % The ADA recommends that most patients with type 1 and type 2 diabetes maintain an A1c level <7%. Specimen Blood PHOSPHORUS (10/10/2016 7:35 PM) Component Value Range Phosphorus 3.9 2.0-4.0 MG/DL Specimen Blood PROTIME INR (PT) (10/10/2016 7:35 PM) Component Value Range INR 1.2 0.8-1.2 Specimen Blood CULTURE-URINE W/SENSITIVITY (10/10/2016 7:10 PM) Component Value Range Battery Name URINE CULTURE Specimen Description URINE, CLEAN CATCH Special Requests NONE Culture NO GROWTH Report Status FINAL 10/11/2016 Specimen Urine - Urine,Clean Catch GENERAL RAD CHEST EXTERNAL IMAGING (10/10/2016 1:20 PM)Only the most recent of 4 results within the time period is included. Narrative This order has been auto finalized and does not contain a result.
[2016-12-31] MEDS ORDERED: RT-ALBUTEROL/IPRATROPIUM 3 ML (DUONEB) VIAL INH ONE (12:00)
[2016-12-31] MEDS ORDERED: methylPREDNISolone 125 MG (Solu-MEDROL) VIAL IVP ONE (12:00)
[2016-12-31] MEDS ORDERED: DEXAMETHASONE 4 MG/ML SDV (DECADRON) IH ONE (12:00)
[2016-12-31 12:02] LABS: BASOPHILS % (AUTO) 0 % (0-10); EOSINOPHILS % (AUTO) 0 % (0-10); LYMPHOCYTES # (AUTO) 1.3 X 10^3 (1.0-4.0); LYMPHOCYTES % (AUTO) 12 % (12-44); MEAN CORPUSCULAR HEMOGLOBIN 31 PG (25-34); MEAN CORPUSCULAR HGB CONC 32 G/DL (32-36); MEAN CORPUSCULAR VOLUME 96 FL (80-99); MEAN PLATELET VOLUME 8.4 FL (7.4-10.4); MONOCYTES # (AUTO) 0.8 X 10^3 (0.0-1.0); MONOCYTES % (AUTO) 7 % (0-12); NEUTROPHILS # (AUTO) 8.9 X 10^3 (1.8-7.8); NEUTROPHILS % (AUTO) 81 % (42-75); PLATELET COUNT 218 10^3/uL (130-400); RED BLOOD COUNT 3.52 10^6/uL (4.35-5.85); RED CELL DISTRIBUTION WIDTH 15.8 % (10.0-14.5)
[2016-12-31 12:10] LABS: INR 1.1 (0.8-1.4); PROTHROMBIN TIME PATIENT 13.5 SEC (12.2-14.7)
--- NOTE | 2016-12-31 12:16 | Diagnostic Imaging Report ---
EXAMINATION: PA and lateral views of the chest. INDICATION: Chest tightness and shortness of breath. FINDINGS: The heart size is borderline enlarged. There is no focal consolidation or pulmonary edema. Pleural parenchymal thickening in the lung apices is seen. No effusion or pneumothorax. The mediastinum and deepa appear unremarkable. Multiple cardiac monitors and pulse generators are seen. IMPRESSION: Borderline cardiomegaly. Dictated by: Dictated on workstation # [id number]
[2016-12-31 12:18] LABS: ALANINE AMINOTRANSFERASE 32 U/L (0-55); ALBUMIN 3.6 G/DL (3.2-4.5); ANION GAP 9 MMOL/L (5-14); ASPARTATE AMINO TRANSFERASE 18 U/L (5-34); BILIRUBIN,TOTAL 0.4 MG/DL (0.1-1.0); BLOOD UREA NITROGEN 15 MG/DL (7-18); BUN/CREATININE RATIO 17; CALCIUM 8.4 MG/DL (8.5-10.1); CARBON DIOXIDE 30 MMOL/L (21-32); CHLORIDE 101 MMOL/L (98-107); CREATINE KINASE 33 U/L (29-168); CREATININE SERUM 0.89 MG/DL (0.60-1.30); GFR ESTIMATED > 60; GLUCOSE 102 MG/DL (70-105); POTASSIUM 3.8 MMOL/L (3.6-5.0); SODIUM 140 MMOL/L (135-145); TOTAL PROTEIN 6.1 G/DL (6.4-8.2)
[2016-12-31 12:25] LABS: TROPONIN I < 0.30 NG/ML (<0.30)
[2016-12-31 12:42] LABS: ABG HCO3 29 MMOL/L (23-27); ABG OXYGEN SATURATION 99 % (94-100); ABG PCO2 43 MMHG (35-45); ABG PH 7.44 (7.37-7.43); ABG PO2 98 MMHG (79-93); ABG TCO2 30.7 MMOL/L (21.0-31.0)
[2016-12-31 12:44] LABS: ALLENS TEST YES-POS; PATIENT TEMP 96.5
[2016-12-31] MEDS ORDERED: cefTRIAXone INJECTION 1,000 MG in NS (IVPB) 50 ML IV ONE (13:15)
[2016-12-31] MEDS ORDERED: CEFD300C3 PO (13:15)
[2016-12-31] MEDS ORDERED: BUDE1AMP IH (13:15)
[2016-12-31] MEDS ORDERED: BENZ-13 PO (13:15)
--- NOTE | 2016-12-31 13:15 | ED Respiratory ---
General Chief Complaint: Respiratory Problems Stated Complaint: PNEUMONIA Nursing Triage Note: Pt c/o chest tightness and SOA since yesterday. Pt also reports her lifevest has alarmed x3 today. Pt has hx CHF and lupus. Source: patient History of Present Illness Time seen by provider: 11:42 Initial Comments PT ARRIVES VIA POV FROM HOME C/O CHEST PAIN SINCE LAST PM HAS HAD PRODUCTIVE COUGH WITH GREEN SPUTUM SINCE LAST PM--THINKS SHE HAS PNEUMONIA C/O SHORTNESS OF BREATH C/O FEELING TIRED. NO FEVER/SWEATS/CHILLS HAS CHRONIC LEG SWELLING BUT HAS HAD INCREASED SWELLING FOR THE LAST 3 DAYS SINCE CELLCEPT WAS STARTED 3 DAYS AGO PT HAS ASTHMA AND HAS AN INHALER AND NEBULIZER, BUT HAS NOT USED THEM TODAY. PT HAS LUPUS, ALSO HAS CHF AND CARDIOMYOPATHY AND HAS EJECTION FRACTION OF 30 % ( IS UP FROM 15 %) HAS HAD A LIFE VEST FOR 2 MONTHS, AND HAS NEVER ALARMED. TODAY IT ALARMED 3 TIMES. PT HAS BEEN ON MULTIPLE NEW MEDICATIONS/ MEDICATION CHANGES OVER THE LAST 5-6 WEEKS. GOES TO FOR MULTISPECIALTY CARE PCP: DR. RICKS Allergies and Home Medications Allergies Coded Allergies: lithium (Verified Allergy, Severe, MADE HER VERY ILL, 12/22/15) Home Medications Albuterol Sulfate 18 Gm Hfa.aer.ad 2 PUFF IH Q4H PRN PRN SHORTNESS OF BREATH ( Reported) Benzonatate 100 Mg Capsule #30 1-2 TAB PO TID Prescribed by: TATIANA HELTON on 12/31/16 1315 Budesonide 1 Mg/2 Ml Ampul.neb #1 1 MG IH BID Prescribed by: TATIANA HELTON on 12/31/16 1315 Cefdinir 300 Mg Capsule 300 MG PO BID (Reported) FILLED 10/03/16 #12 FOR A 6 DAY THERAPY Cefdinir 300 Mg Capsule #20 300 MG PO BID Prescribed by: TATIANA HELTON on 12/31/16 1315 Cetirizine HCl 10 Mg Tablet 10 MG PO DAILY (Reported) Cyclobenzaprine HCl 10 Mg Tablet 10 MG PO Q8H PRN PRN MUSCLE SPASMS (Reported) Diazepam 5 Mg Tablet 5 MG PO Q8H PRN PRN ANXIETY (Reported) Diclofenac Sod 100 Mg Tab 100 MG PO DAILY (Reported) Doxycycline Hyclate 100 Mg Capsule 100 MG PO Q12H (Reported) FILLED 10/03/16 #12 FOR A 6 DAY THERAPY Hydroxychloroquine Sulfate 200 Mg Tablet 200 MG PO BID (Reported) Omeprazole 40 Mg Capsule.dr 40 MG PO DAILY (Reported) Ondansetron HCl 4 Mg Tablet 4 MG PO Q8H PRN PRN NAUSEA/VOMITING (Reported) Oxycodone HCl/Acetaminophen 1 Each Tablet 1 TAB PO Q4H PRN PRN PAIN (Reported) Pilocarpine HCl 5 Mg Tablet 5 MG PO DAILY (Reported) Prednisone 10 Mg Tab 40 MG PO DAILY (Reported) FILLED 10/03/16 #28 FOR A 7 DAY THERAPY Sumatriptan 5 Mg Alexander 5 MG NS UD PRN PRN MIGRAINE (Reported) 1 SPRAY NASALLY @ ONSET OF MIGRAINE, MAY REPEAT IN 2 HOURS IF NEEDED. Valacyclovir HCl 1,000 Mg Tablet 1,000 MG PO Q12H (Reported) FILLED 10/03/16 #20 FOR A 10 DAY THERAPY Constitutional: No chills, No diaphoresis, No dizziness, No fever, malaise EENTM: no symptoms reported Respiratory: see HPI cough short of breathNo wheezing Cardiovascular: see HPI chest pain edemaNo palpitations, No syncope Gastrointestinal: no symptoms reported Genitourinary: no symptoms reported Musculoskeletal: no symptoms reported Skin: no symptoms reported Psychiatric/Neurological: No Symptoms Reported Hematologic/Lymphatic: No Symptoms Reported Immunological/Allergic: see HPI Past Cseyiwe-Jqqbnc-Nczlta Hx Patient Social History Alcohol Use: Denies Use Recreational Drug Use: No Smoking Status: Never a Smoker Recent Foreign Travel: No Contact w/Someone Who Travel: No Recent Infectious Disease Expo: No Recent Hopitalizations: No Immunizations Up To Date Tetanus Booster (TDap): Unknown Seasonal Allergies Seasonal Allergies: No Surgeries HX Surgeries: Yes (breast augmentation, ESWL) Surgeries: Breast, Renal, Tubal Ligation Respiratory Hx Respiratory Disorders: Yes (, CPAP) Respiratory Disorders: Asthma, Chronic Bronchitis, Sleep Apnea Cardiovascular Hx Cardiac Disorders: Yes (HX OF FAST HR, RELATED TO LUPUS) Cardiac Disorders: Cardiomyopathy, Chronic Edema/Swelling, Palpitations, Valvular Heart Disease Neurological Hx Neurological Disorders: Yes (HASNT HAD ONE SINCE 2002-FROM MEDICATION) Neurological Disorders: Seizure Disorder Reproductive System Hx Reproductive Disorders: Yes (DUB) Sexually Transmitted Disease: No HIV/AIDS: No Female Reproductive Disorders: Menstrual Problems [employer] History: Tubal Ligation Genitourinary Hx Genitourinary Disorders: Yes Genitourinary Disorders: Kidney Stones Gastrointestinal Hx Gastrointestinal Disorders: No Musculoskeletal Hx Musculoskeletal Disorders: Yes (HX Coccyx fx; LUPUS) Musculoskeletal Disorders: Arthritis, Rheumatoid Arthritis Endocrine Hx Endocrine Disorders: Yes Endocrine Disorders: Lupus HEENT HX ENT Disorders: Yes (GLASSES, HORNERS SYNDROME) Loss of Vision: Bilateral Hearing Impairment: Denies Cancer Hx Cancer: No Psychosocial Hx Psychiatric Problems: Yes (DID) Behavioral Health Disorders: ADD/ADHD, Anxiety, Personality Disorder Integumentary HX Skin/Integumentary Disorder: No Blood Transfusions Hx Blood Disorders: No Adverse Reaction to a Blood Tr: No Family Medical History Family Medial History: Asthma 19 MOTHER Thyroid disease 19 MOTHER No Family History of: Alzheimer's disease Completed stroke Diabetes mellitus Hypertension Myocardial infarction Physical Exam Vital Signs Vital Sign - Last 12Hours 12/31/16 12/31/16 11:26 11:33 Temp 96.5 Pulse 82 Resp 18 B/P 81/65 Pulse Ox 98 O2 Delivery Room Air O2 Flow Rate 2 FiO2 100 Capillary Refill : Less Than 3 Seconds General Appearance: WD/WN no apparent distress obese HEENT: PERRL/EOMI normal ENT inspection TMs normal pharynx normal other (KERNS FACE) Neck: non-tender full range of motion supple normal inspection Respiratory: no respiratory distress no accessory muscle use decreased breath sounds (IN BASES BILATERALLY)No rales, No rhonchi, No stridor, No wheezing Cardiovascular: normal peripheral pulses regular rate, rhythm no JVD no murmur Gastrointestinal: normal bowel sounds non tender soft Extremities: normal range of motion non-tender no calf tenderness normal capillary refill pedal edema (3+ EDEMA BILATERALLY) Neurologic/Psychiatric: admissions manager rn II-XII nml as tested no motor/sensory deficits alert normal mood/affect oriented x 3 Skin: normal color Focused Exam Lactic Acid Level Laboratory Tests Test 12/31/16 11:43 12/31/16 12:45 Alanine Aminotransferase (ALT/SGPT) 32U/L (0-55) Albumin 3.6G/DL (3.2-4.5) Alkaline Phosphatase 94U/L (40-136) Anion Gap 9MMOL/L (5-14) Aspartate Amino Transf (AST/SGOT) 18U/L (5-34) B-Type Natriuretic Peptide 92.7PG/ML (<100.0) BUN/Creatinine Ratio 17 Blood Urea Nitrogen 15MG/DL (7-18) Calcium Level 8.4MG/DL (8.5-10.1) L Carbon Dioxide Level 30MMOL/L (21-32) Chloride Level 101MMOL/L (98-107) Creatine Kinase MB 1.5NG/ML (<6.6) Creatinine 0.89MG/DL (0.60-1.30) Estimat Glomerular Filtration Rate > 60 Glucose Level 102MG/DL (70-105) Potassium Level 3.8MMOL/L (3.6-5.0) Sodium Level 140MMOL/L (135-145) Total Bilirubin 0.4MG/DL (0.1-1.0) Total Creatine Kinase 33U/L (29-168) Total Protein 6.1G/DL (6.4-8.2) L Troponin I < 0.30NG/ML (<0.30) Lactic Acid Level 1.22MMOL/L (0.50-2.00) Progress/Results/Core Measures Results/Orders Lab Results Laboratory Tests Test 12/31/16 11:43 12/31/16 12:32 12/31/16 12:45 Range/Units Activated Partial Thromboplast Time 26 24-35 SEC Alanine Aminotransferase (ALT/SGPT) 32 0-55 U/L Albumin 3.6 3.2-4.5 G/DL Alkaline Phosphatase 94 40-136 U/L Anion Gap 9 5-14 MMOL/L Aspartate Amino Transf (AST/SGOT) 18 5-34 U/L B-Type Natriuretic Peptide 92.7 <100.0 PG/ML BUN/Creatinine Ratio 17 Basophils # (Auto) 0.0 0.0-0.1 10^3/uL Basophils (%) (Auto) 0 0-10 % Blood Urea Nitrogen 15 7-18 MG/DL Calcium Level 8.4 L 8.5-10.1 MG/DL Carbon Dioxide Level 30 21-32 MMOL/L Chloride Level 101 98-107 MMOL/L Creatine Kinase MB 1.5 <6.6 NG/ML Creatinine 0.89 0.60-1.30 MG/DL Eosinophils # (Auto) 0.0 0.0-0.3 10^3/uL Eosinophils (%) (Auto) 0 0-10 % Estimat Glomerular Filtration Rate > 60 Glucose Level 102 70-105 MG/DL Hematocrit 34 L 35-52 % Hemoglobin 10.8 L 11.5-16.0 G/DL INR Comment 1.1 0.8-1.4 Lymphocytes # (Auto) 1.3 1.0-4.0 X 10^3 Lymphocytes (%) (Auto) 12 12-44 % Mean Corpuscular Hemoglobin 31 25-34 PG Mean Corpuscular Hemoglobin Concent 32 32-36 G/DL Mean Corpuscular Volume 96 80-99 FL Mean Platelet Volume 8.4 7.4-10.4 FL Monocytes # (Auto) 0.8 0.0-1.0 X 10^3 Monocytes (%) (Auto) 7 0-12 % Neutrophils # (Auto) 8.9 H 1.8-7.8 X 10^3 Neutrophils (%) (Auto) 81 H 42-75 % Platelet Count 218 130-400 10^3/uL Potassium Level 3.8 3.6-5.0 MMOL/L Prothrombin Time 13.5 12.2-14.7 SEC Red Blood Count 3.52 L 4.35-5.85 10^6/uL Red Cell Distribution Width 15.8 H 10.0-14.5 % Sodium Level 140 135-145 MMOL/L Total Bilirubin 0.4 0.1-1.0 MG/DL Total Creatine Kinase 33 29-168 U/L Total Protein 6.1 L 6.4-8.2 G/DL Troponin I < 0.30 <0.30 NG/ML White Blood Count 11.0 4.3-11.0 10^3/uL Alexey Test YES-POS Arterial Blood Base Excess 5.0 H -2.5-2.5 MMOL/L Arterial Blood HCO3 29 H 23-27 MMOL/L Arterial Blood Oxygen Saturation 99 94-100 % Arterial Blood Partial Pressure CO2 43 35-45 MMHG Arterial Blood Partial Pressure O2 98 H 79-93 MMHG Arterial Blood Total CO2 30.7 21.0-31.0 MMOL/L Arterial Blood pH 7.44 H 7.37-7.43 Blood Gas Inspired Oxygen 2 Blood Gas Patient Temperature 96.5 Blood Gas Puncture Site R RADIAL Blood Gas Ventilator Setting NO Lactic Acid Level 1.22 0.50-2.00 MMOL/L Micro Results Microbiology 12/31/16 Influenza Types A,B Antigen (MOMO) - Final, Complete My Orders Orders-SUNITHA,TATIANA K DO Saline Lock/Iv-Start (12/31/16 11:52) Ekg Tracing (12/31/16 11:52) O2 (12/31/16 11:52) Monitor-Rhythm Ecg Trace Only (12/31/16 11:52) Arterial Blood Gas (12/31/16 12:32) BNP (12/31/16 11:52) Cbc With Automated Diff (12/31/16 11:52) Comprehensive Metabolic Panel (12/31/16 11:52) Creatine Kinase (12/31/16 11:52) Creatine Kinase Mb (12/31/16 11:52) Lactic Acid Analyzer (12/31/16 11:52) Protime With Inr (12/31/16 11:52) Partial Thromboplastin Time (12/31/16 11:52) Troponin I (12/31/16 11:52) Blood Culture (12/31/16 11:52) Influenza A And B Antigens (12/31/16 11:52) Chest Pa/Lat (2 View) (12/31/16 11:52) Albuterol/Ipra Inhalation Soln (Duoneb I (12/31/16 12:00) Dexamethasone Injection (Decadron Inject (12/31/16 12:00) Rt Request For Service (12/31/16 11:52) Svn Sm Volume Nebulizer Rt-Rfs (12/31/16 11:52) Methylprednisolone Sod Succ (Solu-Medrol (12/31/16 12:00) Ceftriaxone Injection (Rocephin Injectio (12/31/16 13:15) Medications Given in ED Vital Signs/I&O Vital Sign - Last 12Hours 12/31/16 12/31/16 12/31/16 12/31/16 11:26 11:33 12:38 14:23 Temp 96.5 Pulse 82 105 Resp 18 14 B/P 81/65 Pulse Ox 98 98 98 O2 Delivery Room Air Nasal Cannula O2 Flow Rate 2 2 FiO2 100 Blood Pressure Mean: 70 Progress Note : Progress Note FEELS MUCH BETTER AT DISMISSAL. INCREASED AERATION NO ALARMING OF LIFE VEST AND NO C/O CHEST PAIN DURING ER STAY ECG Initial ECG Impression Time: 11:33 Initial ECG Rate: 79 Initial ECG Rhythm: Normal Sinus (PVC) Initial ECG Comparisson: Unchanged Diagnostic Imaging Comments CXR--BORDERLINE CARDIOMEGALY, OTHERWISE NO ACUTE PROCESS, PER RADIOLOGIST REPORT @ 1305 Reviewed: Reviewed by Me Departure Impression Impression: Primary Impression: Acute bronchitis Disposition: 01 HOME, SELF-CARE Condition: Improved Departure-Patient Inst. Referrals: PHAN RICKS MD (PCP/Family) Primary Care Physician Patient Instructions: Acute Bronchitis, Adult (DC) Add. Discharge Instructions: CONTINUE YOUR NEBULIZER TREATMENTS 4 TIMES A DAY WITH ALBUTEROL INCREASED YOUR PREDNISONE TO 40 MG DAILY FOR THE NEXT 4 DAYS , THEN DECREASED TO 30 MG DAILY CONTINUE ALL YOUR OTHER REGULAR MEDICATIONS PRESCRIBED TYLENOL AND MOTRIN NEEDED FOR PAIN OR FEVER FOLLOW UP WITH YOUR DR IN 2-3 DAYS FOR FURTHER CARE RETURN TO ER IF WORSE All discharge instructions reviewed with patient and/or family. Voiced understanding. Scripts Benzonatate (Tessalon Perle)100 Mg Capsule1-2 Tab PO TID Cough #30 CAP Prov:TATIANA HELTON DO 12/31/16 Budesonide (Pulmicort)1 Mg/2 Ml Ampul.neb1 Mg IH BID #1 INHALER Prov:TATIANA HELTON DO 12/31/16 Cefdinir 300 Mg [id number] Mg PO BID FOR INFECTION #20 CAP Prov:TATIANA HELTON DO 12/31/16 TATIANA HELTON DO Dec 31, 2016 13:15
[2016-12-31 14:23] VITALS: BP 103/53
== END 2016-12-31 14:23 | disposition home or self-care (01) ==
LOC: EDUNIT# 10:41 → ER 10:43
DX: J20.9 Acute bronchitis, unspecified (principal); I42.9 Cardiomyopathy, unspecified; L93.0 Discoid lupus erythematosus; Z79.52 Long term (current) use of systemic steroids; Z79.899 Other long term (current) drug therapy
CPT/HCPCS: 36415; 71020; 80053; 82550; 82553; 82805; 83605; 83880; 84484; 85025; 85610; 85730; 87040; 87804; 93005; 93041; 94640; 96365; 96375

== ENCOUNTER 2017-01-18 08:01 | Outpatient (CLI) | payer MEDICARE, MEDICAID ==
[~2017-01-18] VITALS: Ht 162.6 cm; Wt 104.3 kg
[~2017-01-18 08:01] MED LIST changes: +BENZ-13 PO; +BUDE1AMP IH
[2017-01-18] MEDS ORDERED: LIDOCAINE 1% INJ 20 ML (XYLOCAINE) VIAL ONE (08:08)
[2017-01-18] MEDS ORDERED: TRIAMCINOLONE ACET (KENALOG-40) 40 MG/ML 1 ML VIAL ONE (08:08)
[2017-01-18] MEDS ORDERED: BUPIVACAINE 0.25% 30 ML (SENSORCAINE) VIAL ONE (08:08)
[2017-01-18 08:13] VITALS: BP 127/71
[2017-01-18 08:39] VITALS: BP 110/70
--- NOTE | 2017-01-18 12:35 | Pain Medicine-Procedure ---
Procedure Pre-Op/Post-Op Diagnosis Diagnosis: sacrococcygeal disorder Indications for Operation Coccydynia Attending Surgeon Ramirez Procedure Date of Service: Jan 18, 2017 Procedure: Fluoroscopic guided sacrococcygeal joint injection PROCEDURE IN DETAIL: After obtaining informed consent from the patient, the patient's chart was reviewed. The patient was brought to the procedure room and placed in the prone position. A time out was performed. Patient had vital signs evaluated throughout the entire procedure. The back was prepped with antiseptic solution and under fluoroscopic guidance the patient's coccyx was identified. 2 ml's of 1% lidocaine was used to anesthetize the skin and then under fluoroscopic guidance a 22 g spinal needle was use to diaz the sacrococcygeal ligament. Placement was confirmed with both AP and lateral imaging. 4 ml's of 0.25% bupivacaine and 80 mg of Kenalog was injected after negative aspiration and repeated negative aspiration. The needle was then flushed and removed. A band aid was then applied. The patient tolerated the procedure well and was taken to the recovery room in stable condition and was given discharge instructions. Patient was discharged home with no new neurologic deficits. Complications None CARL VALLE MD Jan 18, 2017 12:35 pm
== END 2017-01-18 08:42 | disposition home or self-care (01) ==
LOC: CARD 08:01
PROVIDERS: ATTEND Pain Medicine Pain Medicine
DX: M53.3 Sacrococcygeal disorders, not elsewhere classified (principal); Z79.899 Other long term (current) drug therapy
CPT/HCPCS: 20605; 77002

== ENCOUNTER 2017-01-21 14:27 | Observation (INO) | payer MEDICARE, MEDICAID ==
[~2017-01-21] VITALS: Ht 162.6 cm; Wt 106.7 kg
[2017-01-21] MEDS ORDERED: HYDR-3820 PO (15:07)
[2017-01-21] MEDS ORDERED: METO-272 PO (15:07)
[2017-01-21] MEDS ORDERED: POTA20TA15 PO (15:07)
[2017-01-21] MEDS ORDERED: SPIR25TA3 PO (15:07)
[2017-01-21] MEDS ORDERED: BENZ-13 PO (15:07)
[2017-01-21] MEDS ORDERED: SACU1TAB PO (15:07)
[2017-01-21] MEDS ORDERED: FURO80TA3 PO (15:07)
--- NOTE | 2017-01-21 15:08 | Diagnostic Imaging Report ---
PA and lateral views of the chest. INDICATION: Shortness of breath. FINDINGS: The lungs are clear. The heart size is borderline enlarged. There is no effusion or pneumothorax. The mediastinum and deepa appear unremarkable. IMPRESSION: Borderline cardiac size. Dictated by: Dictated on workstation # [id number]
[2017-01-21 15:17] LABS: MEAN PLATELET VOLUME 8.4 FL (7.4-10.4); RED BLOOD COUNT 3.86 10^6/uL (4.35-5.85); RED CELL DISTRIBUTION WIDTH 15.4 % (10.0-14.5); WHITE BLOOD COUNT 10.6 10^3/uL (4.3-11.0)
[2017-01-21 15:33] LABS: ALANINE AMINOTRANSFERASE 25 U/L (0-55); ALBUMIN 4.1 G/DL (3.2-4.5); ANION GAP 10 MMOL/L (5-14); ASPARTATE AMINO TRANSFERASE 15 U/L (5-34); BILIRUBIN,TOTAL 0.5 MG/DL (0.1-1.0); BLOOD UREA NITROGEN 14 MG/DL (7-18); BUN/CREATININE RATIO 15; CALCIUM 9.6 MG/DL (8.5-10.1); CARBON DIOXIDE 30 MMOL/L (21-32); CHLORIDE 99 MMOL/L (98-107); CREATININE SERUM 0.93 MG/DL (0.60-1.30); GFR ESTIMATED > 60; GLUCOSE 107 MG/DL (70-105); MAGNESIUM 2.4 MG/DL (1.8-2.4); POTASSIUM 4.3 MMOL/L (3.6-5.0); SODIUM 139 MMOL/L (135-145)
[2017-01-21] MEDS ORDERED: ASPI1TAB22 PO (15:34)
[2017-01-21] MEDS ORDERED: MAGN400C PO (15:34)
[2017-01-21] MEDS ORDERED: ALBU2.5V4 IH (15:34)
[2017-01-21] MEDS ORDERED: GABA-486 PO (15:34)
[2017-01-21] MEDS ORDERED: CALC-1 PO (15:34)
[2017-01-21] MEDS ORDERED: MELA1TAB15 PO (15:34)
[2017-01-21] MEDS ORDERED: SULF-222 PO (15:34)
[2017-01-21] MEDS ORDERED: DICL100G31 TOP (15:34)
[2017-01-21] MEDS ORDERED: NYST1000 MM (15:34)
[2017-01-21] MEDS ORDERED: MYCO500T3 PO (15:34)
[2017-01-21] MEDS ORDERED: PRD20T PO (15:34)
[2017-01-21] MEDS ORDERED: BUDE1AMP NEB (15:34)
[2017-01-21 15:53] LABS: THYROID STIMULATING HORMONE 0.37 UIU/ML (0.35-4.94)
[2017-01-21] MEDS ORDERED: CATHETER FLUSH 10 ML SYR IV PRN (16:00)
[2017-01-21] MEDS ORDERED: DICLOFENAC 1% GEL 100 GM (VOLTAREN) TUBE TOP PRN (16:15)
[2017-01-21] MEDS ORDERED: NON-FORMULARY MEDICATION 1 EA EA (Aspirin/Acetaminophen/Caffeine (Excedrin Migraine Caplet PO PRN (16:15)
[2017-01-21] MEDS ORDERED: SUMATRIPTAN 5 MG NS PRN (16:15)
[2017-01-21] MEDS ORDERED: HYDROcodone/APAP 10 MG/325 MG (LORTAB) TAB PO PRN (16:15)
[2017-01-21] MEDS ORDERED: BENZONATATE 100 MG (TESSALON) CAPSULE PO PRN (16:15)
[2017-01-21] MEDS: FUROSEMIDE 40 MG/4 ML INJ (LASIX) IVP SCH (16:20)
[2017-01-21] MEDS ORDERED: RT-ALBUTEROL SULF 2.5 MG/3 ML PRE-MIX VIAL IH PRN (16:45)
[2017-01-21] MEDS ORDERED: RT-ALBUTEROL SULF 2.5 MG/3 ML PRE-MIX VIAL IH SCH (17:00)
[2017-01-21] MEDS ORDERED: ACETAMINOPHEN 325 MG TABLET/CAPLET (TYLENOL) PO PRN (17:15)
[2017-01-21] MEDS: CALCIUM CARB + VIT D 600 MG (CALCARB + D) TAB PO SCH (19:36)
[2017-01-21] MEDS: MAGNESIUM OXIDE (MAG-OX)400 MG TAB PO SCH (19:36)
[2017-01-21] MEDS: NYSTATIN ORAL SUSP 5 ML UDC PO SCH ×2 (19:36→21:52)
[2017-01-21 20:30] VITALS: BP 109/61
[2017-01-21] MEDS ORDERED: NON-FORMULARY MEDICATION 1 EA EA (Melatonin/Pyridoxine (Melatonin 5 mg Tablet) 5 MG) PO SCH (21:00)
[2017-01-21] MEDS: meTOproloL SUCCINATE 50 MG (TOPROL XL) TAB PO SCH (21:00)
[2017-01-21] MEDS ORDERED: BUDESONIDE 1 MG NEB SCH (21:00)
[2017-01-21] MEDS ORDERED: MELATONIN 3 MG TABLET PO SCH (21:00)
[2017-01-21] MEDS ORDERED: RT-BUDESONIDE NEBS 0.5 MG/2ML (PULMICORT) AMP INH SCH (21:00)
[2017-01-21] MEDS ORDERED: MYCOPHENOLATE MOFETIL 1000 MG PO SCH (21:00)
[2017-01-21] MEDS ORDERED: NON-FORMULARY MEDICATION 1 EA EA (Magnesium Oxide (Magnesium) 400 MG) PO SCH (21:00)
[2017-01-21] MEDS: SACUBITRIL/VALSARTAN 24/26 MG (ENTRESTO) TABLET PO SCH (21:51)
[2017-01-21] MEDS: GABAPENTIN 100 MG (NEURONTIN) CAP PO SCH (21:51)
[2017-01-21] MEDS: HYDROXYCHLOROQUINE 200 MG (PLAQUENIL) TAB PO SCH (21:51)
[2017-01-21] MEDS: CATHETER FLUSH 10 ML SYR IV SCH (21:56)
[2017-01-21 22:00] VITALS: BP 97/50
[2017-01-22] VITALS: BP 105/58
[2017-01-22 04:00] VITALS: BP 102/63
[2017-01-22 05:06] LABS: MEAN PLATELET VOLUME 8.3 FL (7.4-10.4); RED BLOOD COUNT 3.56 10^6/uL (4.35-5.85); RED CELL DISTRIBUTION WIDTH 15.3 % (10.0-14.5); WHITE BLOOD COUNT 8.8 10^3/uL (4.3-11.0)
[2017-01-22 05:31] LABS: ANION GAP 11 MMOL/L (5-14); BLOOD UREA NITROGEN 21 MG/DL (7-18); BUN/CREATININE RATIO 23; CALCIUM 8.8 MG/DL (8.5-10.1); CARBON DIOXIDE 28 MMOL/L (21-32); CHLORIDE 99 MMOL/L (98-107); CREATININE SERUM 0.91 MG/DL (0.60-1.30); GFR ESTIMATED > 60; GLUCOSE 112 MG/DL (70-105); MAGNESIUM 2.5 MG/DL (1.8-2.4); SODIUM 138 MMOL/L (135-145)
[2017-01-22] MEDS: CATHETER FLUSH 10 ML SYR IV SCH (06:37)
[2017-01-22] MEDS: MAGNESIUM OXIDE (MAG-OX)400 MG TAB PO SCH (06:37)
[2017-01-22] MEDS: FUROSEMIDE 40 MG/4 ML INJ (LASIX) IVP SCH (06:37)
[2017-01-22] MEDS: CALCIUM CARB + VIT D 600 MG (CALCARB + D) TAB PO SCH (06:37)
[2017-01-22] MEDS ORDERED: predniSONE 10 MG TAB PO SCH (07:00)
[2017-01-22] MEDS ORDERED: PANTOPRAZOLE 40 MG (PROTONIX) TAB PO SCH (07:00)
--- NOTE | 2017-01-22 07:01 | Short Stay Summary ---
History of Present Illness History of Present Illness Reason for visit/HPI 46 years old lady who was diagnosed with severe nonischemic cardiomyopathy with ejection fraction 20 percent, severe mitral regurgitation, seen in my office yesterday was complaining of increasing pedal edema shortness of breath and weight gain. We decided to admit her to the hospital for aggressive diuresis and evaluate her tolerance and response. Patient was admitted last night started on IV Lasix. This morning she is feeling better, reporting improvement in her symptoms. Denied any chest pain. Denied any palpitation. Date of Admission Jan 21, 2017 at 14:31 Date of Discharge January 22, 2017 Attending Physician Hernan Mims MD Admitting Physician Oleksandr Perry MD Consult Allergies and Home Medications Allergies Coded Allergies: lithium (Verified Allergy, Severe, MADE HER VERY ILL, 12/22/15) amitriptyline (Verified Allergy, Unknown, 01/21/17) depression severe Home Medications Albuterol Sulfate 18 Gm Hfa.aer.ad, 2 PUFF IH Q4H PRN for SHORTNESS OF BREATH, ( Reported) Albuterol Sulfate 2.5 Mg/3 Ml Vial.neb, 2.5 MG IH QID, (Reported) Aspirin/Acetaminophen/Caffeine 1 Each Tablet, 2 TAB PO Q6H PRN for MIGRAINE, ( Reported) Benzonatate 100 Mg Capsule, 100-200 MG PO TID PRN for COUGH, (Reported) TAKES 1 TO 2 (100MG) CAPSULES Budesonide 1 Mg/2 Ml Ampul.neb, 1 MG NEB BID, (Reported) Calcium Carbonate/Vitamin D3 1 Each Tablet, 1 TAB PO BID, (Reported) Cetirizine HCl 10 Mg Tablet, 10 MG PO DAILY, (Reported) Diclofenac Sodium 100 Gm Gel..gram., 2 GM TOP BID PRN for PAIN, (Reported) Furosemide 80 Mg Tablet, 80 MG PO 0700,1200, (Reported) Gabapentin 100 Mg Capsule, 200 MG PO BID, (Reported) TAKES 2 (100MG) CAPSULES Hydrocodone/Acetaminophen 1 Each Tablet, 1 TAB PO Q6H PRN for PAIN, (Reported) Hydroxychloroquine Sulfate 200 Mg Tablet, 200 MG PO BID, (Reported) Magnesium Oxide 400 Mg Capsule, 400 MG PO BID, (Reported) Melatonin/Pyridoxine 1 Each Tablet, 5 MG PO HS, (Reported) Metoprolol Succinate 50 Mg Tab.er.24h, 50 MG PO BID, (Reported) Mycophenolate Mofetil 500 Mg Tablet, 1,000 MG PO BID, (Reported) TAKES 2 (500MG) TABLETS Nystatin 100,000 Unit/1 Ml Oral.susp, 6 ML MM QID, (Reported) Omeprazole 40 Mg Capsule.dr, 40 MG PO DAILY, (Reported) Potassium Chloride 20 Meq Tab.er.prt, 20 MEQ PO DAILY, (Reported) Prednisone 20 Mg Tab, 10 MG PO 0700,1200, (Reported) Sacubitril/Valsartan 1 Each Tablet, 1 TAB PO BID, (Reported) Spironolactone 25 Mg Tablet, 25 MG PO DAILY, (Reported) Sulfamethoxazole/Trimethoprim 1 Each Tablet, 1 TAB PO, (Reported) Sumatriptan 5 Mg [place], 5 MG NS UD PRN for MIGRAINE, (Reported) 1 SPRAY NASALLY @ ONSET OF MIGRAINE, MAY REPEAT IN 2 HOURS IF NEEDED. Past Spuwdzp-Aeleys-Fudsni Hx Patient Social History Marrital Status: Alcohol Use: Denies Use Recreational Drug Use: No Smoking Status: Former Smoker Type Used: Cigarettes Physical Abuse Screen: No Sexual Abuse: No Recent Foreign Travel: No Contact w/other who traveled: No Recent Hopitalizations: No Recent Infectious Disease Expo: No Immunizations Up To Date Tetanus Booster (TDap): Unknown Seasonal Allergies Seasonal Allergies: Yes Surgeries HX Surgeries: Yes (breast augmentation, ESWL) Surgeries: Breast, Renal, Tubal Ligation Respiratory Hx Respiratory Disorders: Yes (, CPAP) Respiratory Disorders: Pneumonia Cardiovascular Hx Cardiovascular Disorders: Yes (HX OF FAST HR, RELATED TO LUPUS) Cardiac Disorders: Cardiomyopathy, Chronic Edema/Swelling, Palpitations, Valvular Heart Disease Neurological Hx Neurological Disorders: Yes (HASNT HAD ONE SINCE 2002-FROM MEDICATION) Neurological Disorders: Seizure Disorder Reproductive System Hx Reproductive Disorders: Yes (DUB) Sexually Transmitted Disease: No HIV/AIDS: No Female Reproductive Disorders: Menstrual Problems Genitourinary Hx Genitourinary Disorders: Yes Genitourinary Disorders: Kidney Stones Gastrointestinal Hx Gastrointestinal Disorders: No Musculoskeletal Hx Musculoskeletal Disorders: Yes (HX Coccyx fx; LUPUS) Musculoskeletal Disorders: Arthritis, Rheumatoid Arthritis Endocrine Hx Endocrine Disorders: Yes Endocrine Disorders: Lupus HEENT HX ENT Disorders: Yes (GLASSES, HORNERS SYNDROME) Loss of Vision: Bilateral Hearing Impairment: Denies Cancer Hx Cancer: No Psychosocial Hx Psychiatric Problems: Yes (DID) Behavioral Health Disorders: ADD/ADHD, Anxiety, Personality Disorder Integumentary HX Skin/Integumentary Disorder: No Blood Transfusions Hx Blood Disorders: No Adverse Reaction to a Blood Tr: No Family Medical History Family Hx: 19 MOTHER Asthma Thyroid disease Constitutional: see HPI, malaise, weakness, weight gain EENTM: no symptoms reported, see HPI Respiratory: see HPI, cough, dyspnea on exertion, No hemoptysis, orthopnea, No phlegm, short of breath, No stridor, No wheezing, No other Cardiovascular: see HPI, No chest pain, edema, No Hx of Intervention, palpitations, No syncope, No vascular heart diseas, No other Gastrointestinal: no symptoms reported, see HPI Genitourinary: no symptoms reported, see HPI Musculoskeletal: no symptoms reported, see HPI Skin: no symptoms reported, see HPI Psychiatric/Neurological: No Symptoms Reported, See HPI Physical Exam Vital Signs Vital Sign - Last 12Hours 01/21/17 20:30 Temp 97.2 Pulse 89 Resp 20 B/P (MAP) 109/61 Pulse Ox 95 O2 Delivery Room Air Capillary Refill : General Appearance: No Apparent Distress, WD/WN Eyes: Bilateral Eye EOMI, Bilateral Eye Normal Inspection, Bilateral Eye PERRL HEENT: PERRL/EOMI, TMs Normal, Normal ENT Inspection, Pharynx Normal Neck: Full Range of Motion, Normal Inspection, Non Tender, Supple, Carotid Bruit Respiratory: Chest Non Tender, Normal Breath Sounds, No Accessory Muscle Use, No Respiratory Distress, Crackles Cardiovascular: Regular Rate, Rhythm, No Edema, No JVD, Normal Peripheral Pulses, Systolic Murmur, Gallop/S3 Gastrointestinal: Normal Bowel Sounds, No Organomegaly, No Pulsatile Mass, Non Tender, Soft Back: Normal Inspection, No CVA Tenderness, No Vertebral Tenderness Extremity: Normal Capillary Refill, Normal Inspection, Normal Range of Motion, Non Tender, No Calf Tenderness, Pedal Edema Neurologic/Psychiatric: Alert, Oriented x3, No Motor/Sensory Deficits, Normal Mood/Affect Skin: Normal Color, Warm/Dry Lymphatic: No Adenopathy Clinical Quality Measures DVT/VTE Risk/Contraindication: Risk Factor Score Per Nursin RFS Level Per Nursing on Admit: 4+=Very High Short Stay Diagnosis Discharge Diagnosis-Short Stay Admission Diagnosis: peripheral edema Congestive heart failure, acute on chronic left ventricular systolic dysfunction, nonischemic cardiomyopathy Moderate severe mitral regurgitation Systemic lupus or traumatic Final Discharge Diagnosis: peripheral edema Congestive heart failure, chronic left ventricular systolic dysfunction, nonischemic cardiomyopathy Moderate severe mitral regurgitation Systemic lupus or traumatic Conclusion Labs Laboratory Tests 01/21/17 15:05: White Blood Count 10.6, Red Blood Count 3.86L, Hemoglobin 11.8, Hematocrit 38, Mean Corpuscular Volume 97, Mean Corpuscular Hemoglobin 31, Mean Corpuscular Hemoglobin Concent 32, Red Cell Distribution Width 15.4H, Platelet Count 226, Mean Platelet Volume 8.4, Sodium Level 139, Potassium Level 4.3, Chloride Level 99, Carbon Dioxide Level 30, Anion Gap 10, Blood Urea Nitrogen 14, Creatinine 0.93, Estimat Glomerular Filtration Rate > 60, BUN/Creatinine Ratio 15, Glucose Level 107H, Calcium Level 9.6, Magnesium Level 2.4, Total Bilirubin 0.5, Aspartate Amino Transf (AST/SGOT) 15, Alanine Aminotransferase (ALT/SGPT) 25, Alkaline Phosphatase 92, B-Type Natriuretic Peptide 79.5, Total Protein 7.0, Albumin 4.1, Thyroid Stimulating Hormone (TSH) 0.37 01/22/17 04:57: White Blood Count 8.8, Red Blood Count 3.56L, Hemoglobin 10.9L, Hematocrit 34L, Mean Corpuscular Volume 97, Mean Corpuscular Hemoglobin 31, Mean Corpuscular Hemoglobin Concent 32, Red Cell Distribution Width 15.3H, Platelet Count 210, Mean Platelet Volume 8.3, Sodium Level 138, Potassium Level 4.0, Chloride Level 99, Carbon Dioxide Level 28, Anion Gap 11, Blood Urea Nitrogen 21H, Creatinine 0.91, Estimat Glomerular Filtration Rate > 60, BUN/Creatinine Ratio 23, Glucose Level 112H, Calcium Level 8.8, Magnesium Level 2.5H, B-Type Natriuretic Peptide 40.6 Conclusion/Plan Congestive heart failure, acute on chronic left ventricular systolic dysfunction , nonischemic cardiomyopathy with ejection fraction 20 percent, she has been seen by Julio Avendaoñ and Dr Rey previously, have a LifeVest, being treated aggressively but having worsening pedal edema. admitted last night started on Lasix IV 80 mg twice daily and reported significant improvement today , still having mild pedal edema, BNP is normal. Severe mitral regurgitation, moderate severe tricuspid regurgitation, probably secondary to dilated cardiomyopathy, questionable benefit from mitral clip. Discussed it with Dr. Okeefe and they will review her echo again next month. I will evaluate 2-D echo today. History of cardiac catheterization done in September 2016 showing mild coronary artery disease nonobstructive disease History of systemic lupus peritonitis, rheumatoid arthritis, maintained on prednisone. Bronchial asthma/obstructive sleep apnea, uses C Pap. History of migraine headache. History of seizure disorder in the remote past, reporting that it was secondary to medication. HERNAN MIMS MD Jan 22, 2017 07:01
[2017-01-22 07:20] VITALS: BP 106/55
[2017-01-22] MEDS ORDERED: KCL 20 MEQ TAB (K-DUR) PO SCH (08:00)
[2017-01-22] MEDS: GABAPENTIN 100 MG (NEURONTIN) CAP PO SCH (08:51)
[2017-01-22] MEDS: SACUBITRIL/VALSARTAN 24/26 MG (ENTRESTO) TABLET PO SCH (08:51)
[2017-01-22] MEDS: NYSTATIN ORAL SUSP 5 ML UDC PO SCH (08:52)
[2017-01-22] MEDS: HYDROXYCHLOROQUINE 200 MG (PLAQUENIL) TAB PO SCH (08:52)
[2017-01-22] MEDS: meTOproloL SUCCINATE 50 MG (TOPROL XL) TAB PO SCH (08:52)
[2017-01-22] MEDS ORDERED: LORATADINE (CLARITIN) 10 MG TAB PO SCH (09:00)
[2017-01-22] MEDS ORDERED: NON-FORMULARY MEDICATION 1 EA EA (Omeprazole 40 MG) PO SCH (09:00)
[2017-01-22] MEDS ORDERED: NON-FORMULARY MEDICATION 1 EA EA (Cetirizine HCl 10 MG) PO SCH (09:00)
[2017-01-22] MEDS ORDERED: SPIRONOLACTONE 25 MG (ALDACTONE) TAB PO SCH (09:00)
[2017-01-22] MEDS ORDERED: FUROSEMIDE 40 MG/4 ML INJ (LASIX) IVP SCH (09:00)
[2017-01-22 09:40] VITALS: BP 106/55
--- NOTE | 2017-01-23 08:43 | ECHOCARDIOGRAPHY REPORT ---
PROCEDURE PHYSICIAN: HERNAN BROOKS DATE OF PROCEDURE: 01/21/2017 TWO DIMENSIONAL ECHOCARDIOGRAM REPORT PRIMARY PHYSICIAN: OTHER PHYSICIAN: REFERRING PHYSICIAN: ORDERING PHYSICIAN: INDICATION FOR THE PROCEDURE: Congestive heart failure. MEASUREMENTS DERIVED VALUES LV DIAMETER (LAX) NORMALS NORMALS Diastolic 5.1 (3.6-5.2) Eject. Fract. 45% (60%+/-6%) Systolic (2.3-3.9) Diastolic Vol. % Shortening (0.22-0.42) Systolic Vol. Aortic Root IVS THICKNESS Diastolic 0.8 (0.6-1.1) LVPW THICKNESS Diastolic 0.9 (0.6-1.1) LA DIAMETER Systolic 2.5 (2.1-3.7) FINDINGS: 1. Technical quality is good. 2. The left ventricle is normal in size. Systolic function appeared to be mildly reduced. Estimated ejection fraction 45%, significant improvement compared to a study of September. 3. The left atrium is normal in size. No clot or thrombus were seen within the left atrium. 4. The right atrium and right ventricle are normal in size. No clot or thrombus were seen within the right side. 5. Mitral valve is normal in morphology with mild mitral regurgitation noted by color Doppler flow. No mitral valve prolapse. No mitral valve stenosis. 6. Aortic valve is trileaflet with normal opening and closing pattern. No significant aortic stenosis or regurgitation was seen. 7. Tricuspid valve is normal in morphology with mild tricuspid regurgitation noted by color Doppler flow. Doppler across tricuspid valve estimated pulmonary artery pressure of 19+ right atrial pressure. 8. Pulmonic valve is functioning normally. 9. No pericardial effusion. IN CONCLUSION: 1. Normal left ventricular size with mild diffuse left ventricular hypokinesia. Systolic function is mildly reduced. Estimated ejection fraction 45%. 2. Mild mitral and tricuspid regurgitation. 3. Estimated pulmonary artery pressure of 25 mmHg Job ID: [id number] Dictated Date: 01/23/2017 08:14:07 Central Supply Technician Date: 01/23/2017 08:40:40 / eri
== END 2017-01-22 08:33 | disposition home or self-care (01) ==
LOC: UNDOADMIN 14:31 → ICU 14:31 → INTOOBSV 15:35 → UNDODISIN 01-22 09:40
PROVIDERS: ADMIT Internal Medicine Cardiovascular Disease; ATTEND Internal Medicine Cardiovascular Disease
DX: I50.23 Acute on chronic systolic (congestive) heart failure (principal); I42.9 Cardiomyopathy, unspecified; I08.1 Rheumatic disorders of both mitral and tricuspid valves; I25.10 Atherosclerotic heart disease of native coronary artery without angina pectoris; M32.9 Systemic lupus erythematosus, unspecified; J45.909 Unspecified asthma, uncomplicated; G47.33 Obstructive sleep apnea (adult) (pediatric); Z87.891 Personal history of nicotine dependence
CPT/HCPCS: 36415; 71020; 80048; 80053; 83735; 83880; 84443; 85027; 93306; G0378

== ENCOUNTER → 2017-05-17 | Outpatient (CLI) | payer MEDICARE, MEDICAID ==
[~2017-05-17] MED LIST changes: +ALBU2.5V4 IH; +ASPI1TAB22 PO; +BUDE1AMP NEB; +CALC-1 PO; +DICL100G31 TOP; +FURO80TA3 PO; +GABA-486 PO; +HYDR-3820 PO; +MAGN400C PO; +MELA1TAB15 PO; +METO-272 PO; +MYCO500T3 PO; +NYST1000 MM; +POTA20TA15 PO; +PRD20T PO; +SACU1TAB PO; +SPIR25TA3 PO; +SULF-222 PO
--- NOTE | 2017-05-17 11:55 | Diagnostic Imaging Report ---
PROCEDURE: CT urinary tract, rule out kidney stone. TECHNIQUE: Multiple contiguous axial images were obtained through the abdomen and pelvis without the use of intravenous contrast. INDICATION: Hematuria. Left flank pain. FINDINGS: The lung bases appear clear. The liver demonstrates a hypodense lesion measuring 1.4 cm in size. This is seen in the anterior central aspect of the liver and is seen on 2015 exam also but it was smaller measuring 0.9 cm at the time. It is of low density and is favored to be a cyst. The spleen is not enlarged. The adrenals, the pancreas and the gallbladder appear unremarkable for an unenhanced exam. The abdominal aorta is normal in caliber. No paraaortic significantly enlarged lymph node is seen. The kidneys demonstrate no hydronephrosis. There are no urinary tract stones identified. There is no bowel obstruction. The appendix appears normal. There is no significant free fluid or fluid collection in the abdomen or pelvis seen. Prominence in the right adnexa is probably related to dominant ovarian follicles. The uterus and the left adnexa appear grossly unremarkable. The osseous structures demonstrate mild degenerative changes and vacuum phenomenon at the SI joints. IMPRESSION: 1. No urinary tract stones. 2. A 1.4 cm hypodense lesion in the anterior central aspect of the liver has low density and is favored to be a cyst. Further evaluation with liver ultrasound is suggested to confirm. Dictated by: Dictated on workstation # [id number]
== END ==
LOC: RAD 09:18
PROVIDERS: ATTEND Family Medicine
DX: R10.32 Left lower quadrant pain (principal); R31.9 Hematuria, unspecified; K76.9 Liver disease, unspecified
CPT/HCPCS: 74176

== ENCOUNTER → 2017-05-28 | Outpatient (CLI) | payer MEDICARE, MEDICAID ==
--- NOTE | 2017-05-28 11:28 | Diagnostic Imaging Report ---
INDICATION: Low-density mass noted within the liver on recent CT imaging. TECHNIQUE: Multiple grayscale sonographic images were obtained of the right upper quadrant of the abdomen. CORRELATION STUDY: Multiple prior CT examinations, most recent 05/17/2017 FINDINGS: LIVER: The liver measures 15 cm. Within the right lobe of the liver is an area of asymmetric increased echogenicity measuring approximately 11 x 9 mm. There is suggestion of some shadowing posteriorly. This is nonspecific but can be seen with gas. Possibility of other process such as calcification could also give this appearance but is considered less likely. A definitive cystic lesion is not demonstrated. GALLBLADDER: The gallbladder is present and demonstrates no evidence of shadowing gallstones or biliary sludge. No abnormal gallbladder wall thickening or pericholecystic fluid. COMMON BILE DUCT: Not well defined and appears to be largely obscured. No suggestion for significant bile duct dilatation otherwise . PANCREAS: Largely obscured by overlying bowel gas. RIGHT KIDNEY: Measures 9.4 cm. No hydronephrosis. OTHER: None. IMPRESSION: Asymmetric area of increased echogenicity of the right lobe of the liver. This finding is nonspecific but could be reflective of gas which is abnormal. Possibility that this represents other process such as calcification considered less likely. Possibility of ill-defined cavernous hemangioma which could potentially correspond to the recently identified lesion is also a consideration. Correlation with postcontrast-enhanced CT imaging and/or pre and postcontrast MRI of the abdomen recommended. Dictated by: Dictated on workstation # [id number]
== END ==
LOC: RAD 07:57
PROVIDERS: ATTEND Registered Nurse
DX: K76.9 Liver disease, unspecified (principal)
CPT/HCPCS: 76705

== ENCOUNTER → 2017-06-13 | Outpatient (CLI) | payer MEDICARE, MEDICAID ==
[~2017-06-13] MED LIST changes: +CATHETER FLUSH 10 ML SYR IV PRN; +IOHEXOL 350 MG/ML 100 ML (OMNIPAQUE 350) VIAL IV ONE; +NS 100 ML (IVPB) BAG IV ONE
--- NOTE | 2017-06-13 20:09 | Diagnostic Imaging Report ---
PROCEDURE: CT abdomen with and without contrast. TECHNIQUE: Multiple contiguous axial CT images of the abdomen were obtained prior to and after intravenous administration of iodinated contrast. INDICATION: Focal hepatic hypodensity. Pre and post IV contrast-enhanced CT abdomen performed. FINDINGS: Tiny region of relative diminished parenchymal density in the right hepatic lobe near the falciform ligament anteriorly is about 7 mm and showed no mass effect and is most compatible with a tiny focus of fatty infiltration. This is a common location for that entity. Gallbladder, bile ducts, spleen, adrenals, and pancreas are all negative. The kidneys are unobstructed and normal. There is no mesenteric or retroperitoneal adenopathy. There is no ascites. The appendix is normal. The lung bases are unremarkable. The osseous structures are nonacute. IMPRESSION: Abnormal density in the right hepatic lobe alerted to on recent study is most consistent with small focal area of fatty infiltration. There were no findings suggestive of a liver mass, and no biliary abnormality, acute or suspicious findings at this exam are found. Dictated by: Dictated on workstation # [id number]
== END ==
LOC: RAD 09:50
PROVIDERS: ATTEND Registered Nurse
DX: K76.9 Liver disease, unspecified (principal)
CPT/HCPCS: 74170

== ENCOUNTER → 2017-06-13 | Outpatient (CLI) | payer MEDICARE, MEDICAID ==
[~2017-06-13] MED LIST changes: -CATHETER FLUSH 10 ML SYR IV PRN; -IOHEXOL 350 MG/ML 100 ML (OMNIPAQUE 350) VIAL IV ONE; -NS 100 ML (IVPB) BAG IV ONE
--- NOTE | 2017-06-13 20:37 | Diagnostic Imaging Report ---
EXAMINATION: Pelvic ultrasound. INDICATION: Ablation. FINDINGS: The previous pelvic ultrasound exam performed on 12/19/2015 failed to show any sign of an acute pelvic abnormality. However, the left ovary was not identified on the previous exam. On this study, the uterus does not appear to be enlarged measuring 7.0 x 3.7 x 3.8 cm. The endometrial lining is not thickened measuring 4 mm. There is a 1.5 x 1.5 x 1.8 cm hypoechoic area in the uterine fundus anteriorly. Even in retrospect, this finding is difficult to appreciate on the prior exam. The right ovary was identified and is generally unremarkable. There is a 2.5 x 2.8 x 2.3 cm rounded hypoechoic area in the left adnexa. I suspect that this is a cyst arising from the left ovary. There is no solid pelvic mass or free fluid collection noted. IMPRESSION: 1. The uterus is not enlarged, but there does appear to be a small 1.5 x 1.5 x 1.8 cm fibroid along the anterior aspect of the uterine fundus. 2. There is a 2.5 x 2.8 x 2.3 cm left adnexal cyst. Most likely, this is arising from the left ovary. 3. There is no acute pelvic abnormality identified. Dictated by: Dictated on workstation # [id number]
== END ==
LOC: RAD 09:45
PROVIDERS: ATTEND Obstetrics & Gynecology
DX: D25.9 Leiomyoma of uterus, unspecified (principal); R19.09 Other intra-abdominal and pelvic swelling, mass and lump
CPT/HCPCS: 76830; 76856

== ENCOUNTER → 2017-08-08 | Outpatient (CLI) | payer MEDICARE, MEDICAID ==
[~2017-08-08] MED LIST changes: +OXYC-202 PO
== END ==
LOC: CARD 13:49
PROVIDERS: ATTEND Internal Medicine Cardiovascular Disease
DX: I50.9 Heart failure, unspecified (principal); R07.9 Chest pain, unspecified; I34.0 Nonrheumatic mitral (valve) insufficiency; R06.02 Shortness of breath
CPT/HCPCS: 93306

== ENCOUNTER 2017-08-09 09:40 | Outpatient (CLI) | payer MEDICARE, MEDICAID ==
[~2017-08-09] VITALS: Ht 162.6 cm; Wt 106.7 kg
[~2017-08-09 09:40] MED LIST changes: -OXYC-202 PO
[2017-08-09] MEDS ORDERED: OXYC-202 PO (09:53)
[2017-08-09 09:59] VITALS: BP 106/55
[2017-08-09 10:26] LABS: BASOPHILS % (AUTO) 0 % (0-10); EOSINOPHILS # (AUTO) 0.1 10^3/uL (0.0-0.3); EOSINOPHILS % (AUTO) 2 % (0-10); LYMPHOCYTES % (AUTO) 21 % (12-44); MEAN CORPUSCULAR HEMOGLOBIN 29 PG (25-34); MEAN CORPUSCULAR HGB CONC 32 G/DL (32-36); MEAN CORPUSCULAR VOLUME 89 FL (80-99); MEAN PLATELET VOLUME 9.3 FL (7.4-10.4); MONOCYTES # (AUTO) 0.6 X 10^3 (0.0-1.0); MONOCYTES % (AUTO) 11 % (0-12); NEUTROPHILS # (AUTO) 3.3 X 10^3 (1.8-7.8); NEUTROPHILS % (AUTO) 66 % (42-75); PLATELET COUNT 200 10^3/uL (130-400); RED BLOOD COUNT 3.95 10^6/uL (4.35-5.85); RED CELL DISTRIBUTION WIDTH 12.7 % (10.0-14.5)
[2017-08-09 10:27] LABS: BILIRUBIN,URINE NEGATIVE (NEGATIVE); KETONES,URINE NEGATIVE (NEGATIVE); LEUKOCYTE ESTERASE ,URINE 2+ (NEGATIVE); NITRITE,URINE NEGATIVE (NEGATIVE); PH,URINE 5 (5-9); PROTEIN,URINE 1+ (NEGATIVE); UROBILINOGEN,URINE NORMAL (NORMAL)
[2017-08-09 10:34] LABS: SQUAMOUS EPITHELIAL CELL,UR 25-50 /HPF
[2017-08-09 10:36] LABS: PROTHROMBIN TIME PATIENT 13.2 SEC (12.2-14.7)
== END 2017-08-09 11:19 | disposition home or self-care (01) ==
LOC: PREOP 09:40
PROVIDERS: ATTEND Obstetrics & Gynecology
DX: Z01.812 Encounter for preprocedural laboratory examination (principal); N94.6 Dysmenorrhea, unspecified; N92.1 Excessive and frequent menstruation with irregular cycle; N84.0 Polyp of corpus uteri
CPT/HCPCS: 36415; 81000; 85025; 85610; 86850; 86900; 86901; 87081

== ENCOUNTER 2017-08-13 06:15 | Day surgery (SDC) | payer MEDICARE, MEDICAID ==
[2017-08-13] VITALS (7 sets, daily range): BP systolic 97–127; BP diastolic 44–69
[~2017-08-13] VITALS: Ht 162.6 cm; Wt 106.7 kg
[~2017-08-13 06:15] MED LIST changes: +OXYC-202 PO
[2017-08-13] MEDS ORDERED: metroNIDAZOLE 500 MG/100 ML IVPB (PRE-MIX) IV ONE (07:00)
[2017-08-13] MEDS ORDERED: ceFAZolin 1 GM/NS 50 ML IVPB IV ONE ×2 (07:00)
[2017-08-13] MEDS ORDERED: CATHETER FLUSH 10 ML SYR IV PRN (07:00)
[2017-08-13] MEDS ORDERED: BUP/EPI 0.5% 1:200,000 (MARCAINE) 10ML VIAL IJ ONE (07:05)
[2017-08-13] MEDS ORDERED: ROCURONIUM 50 MG/5 ML (ZEMURON) VIAL IV ONE (07:13)
[2017-08-13] MEDS ORDERED: LIDOCAINE PF 2% 5 ML (XYLOCAINE) VIAL ONE (07:13)
[2017-08-13] MEDS ORDERED: SEVOFLURANE (ULTANE) 15 ML INHAL SOLN ONE ×4 (07:13→09:21)
[2017-08-13] MEDS ORDERED: LACTATED RINGERS 1,000 ML IV ONE ×2 (07:13→09:19)
[2017-08-13] MEDS ORDERED: proPOfol 200 MG/20 ML (DIPRIVAN) VIAL IV ONE (07:13)
[2017-08-13] MEDS ORDERED: ONDANSETRON 4 MG/2 ML (SDV) Z0FRAN ONE (07:13)
[2017-08-13] MEDS ORDERED: MIDAZOLAM 2 MG/2 ML (VERSED) VIAL ONE (07:14)
[2017-08-13] MEDS ORDERED: fentaNYL INJECTION 100 MCG/2 ML AMP ONE ×2 (07:14→09:30)
[2017-08-13] MEDS: LACTATED RINGERS 1,000 ML IV PRN ×2 (07:47→08:35)
--- NOTE | 2017-08-13 07:58 | Progress Note-Pre Operative ---
Pre-Operative Progress Note H&P Reviewed The H&P was reviewed, patient examined and no changes noted. see echo report Date Seen by Provider: Aug 13, 2017 Time Seen by Provider: 07:35 Date H&P Reviewed: Aug 13, 2017 Time H&P Reviewed: 07:30 Pre-Operative Diagnosis: dysmenorrhea, menorrhagia, failed ablation HUMA SCOTT DO Aug 13, 2017 07:58
[2017-08-13] MEDS ORDERED: NEOSTIGMINE (BLOXIVERZ ) 1 MG/1ML 10 ML VIAL ONE (09:26)
[2017-08-13] MEDS ORDERED: GLYCOPYRROLATE 0.2 MG/ML (ROBINUL) 2 ML VIAL ONE (09:26)
[2017-08-13] MEDS ORDERED: HYDROmorphone (DILAUDID) 2 MG/ML VIAL ONE (09:45)
[2017-08-13] MEDS ORDERED: KETOROLAC 30 MG/ML VIAL IVP ONE ×2 (09:45→10:15)
[2017-08-13] MEDS ORDERED: morphine INJ 10 MG/ML 1ML (SYR OR VIAL) ONE (09:45)
[2017-08-13] MEDS ORDERED: PROMETHAZINE INJ 25 MG/ML (PHENERGAN) AMP ONE (09:57)
[2017-08-13] MEDS: morphine INJ 10 MG/ML 1ML (SYR OR VIAL) IVP PRN ×2 (09:57→10:00)
[2017-08-13] MEDS ORDERED: PATIENT MAY USE OWN MED,SINGLE MED PO SCH (10:00)
[2017-08-13] MEDS ORDERED: KETOROLAC 30 MG/ML VIAL IVP PRN (10:00)
[2017-08-13] MEDS ORDERED: SUMAtriptan 50 MG (IMITREX) TAB PO PRN (10:00)
[2017-08-13] MEDS ORDERED: ANTACID SUSP 30 ML UDC (MYLANTA) PO PRN (10:00)
[2017-08-13] MEDS ORDERED: RT-ALBUTEROL SULF 2.5 MG/3 ML PRE-MIX VIAL IH SCH ×2 (10:00→15:00)
[2017-08-13] MEDS ORDERED: RT-ALBUTEROL HFA (VENTOLIN) PER PUFF IH PRN (10:00)
[2017-08-13] MEDS ORDERED: CHLORASEPTIC LOZENGE MM PRN (10:00)
[2017-08-13] MEDS ORDERED: BENZONATATE 100 MG (TESSALON) CAPSULE PO PRN (10:00)
[2017-08-13] MEDS ORDERED: PATIENT MAY USE OWN MEDS, ALL MC SCH (10:00)
[2017-08-13] MEDS ORDERED: DICLOFENAC 1% GEL 100 GM (VOLTAREN) TUBE TOP PRN (10:00)
[2017-08-13] MEDS ORDERED: ZOLPIDEM 5 MG (AMBIEN) TAB PO PRN (10:00)
[2017-08-13] MEDS ORDERED: DOCUSATE SODIUM 100 MG (COLACE) CAP PO PRN (10:00)
[2017-08-13] MEDS: HYDROmorphone (DILAUDID) 2 MG/ML VIAL IVP PRN ×5 (10:05→18:06)
--- NOTE | 2017-08-13 10:10 | Operative Report ---
Operative Report Date of Procedure/Surgery Aug 13, 2017 Surgeon (s) HUMA SCOTT DO Service Employee (s): MARKUS Phillips asst. nec. to retract imp. neurovascular structures Post-Operative Diagnosis same Procedure Performed RaTH, Bilateral salpingectom Description of Procedure Anesthesia Type: General Estimated blood loss (mL): 50 Specimen(s) collected/removed uterus, bilateral tubes Description of the Procedure With informed consent the patient was taken to the operating room where general anesthesia was found to be adequate. She was prepped and draped i the usual sterile fashion. A Vee catheter was placed. A speculum was placed in the vagina. The cervix was visualized and the anterior lip was grasped with a sharp toothed tenaculum. The uterus was sounded and depth was approximately 10 centimeters. I placed the Quyen device. And then set the Quyen to 10 cm and a 2.5 cm collar was advanced over the cervix. I inserted the Quyen without difficulty, inflating the balloon and securing it around the fornix of the cervix. The cervix had to be gently dilated to allow insertion of the sound and the QUYEN. The collar was then secured with sutures at 12 o'clock. the uterus was small and I purposely perforated the uterus with the QUYEN. Attention was then turned to the patient' s abdomen. The patient has a tattoo circumferentially around the umbilicus so I made an umbilical incision. The area was injected with 0.5% Marcaine and then an incision was made. This was made about 12 mm. A Veress needle was inserted and intraabdominal placement was confirmed with a drop in pressure and the saline drop test. I then insufflated the abdomen to a maximum of 15 mmHg with warmed CO2 gas. I then placed a 12 mm trocar and then the Da Judi camera and intraperitoneal placement was confirmed. I then determined the procedure could be continued robotically. The first robotic port was placed about 12 cm lateral to the right and left of the umbilical placement and slightly inferior. These are both 8 mm trocars. These were placed under direct visualization of the laparoscope. 0.25% Marcaine was injected prior to placement of all trocars. I then placed an hotel assistant manager trocar approximately 6 cm medial and cephalad to the supraumbilical port. This was also an 12 mm port and placed under direct visualization. When all placements were confirmed, the patient was placed in steep Trendelenburg allowing adequate visualization and the robot was brought in for docking. The docking was accomplished without difficulty. A survey of the pelvis confirmed the above mentioned findings. I then took over the command of the robot utilizing the Bipolar forceps and monopolar dilshad. I was able to visualize the round ligaments bilaterally and grasped them and cauterized with bipolar cautery and then cut with my dilshad. At this point, I then did bilateral salpingectomy. I incised the mesosalpinx bilaterally. There was evidence of tubal interruption bilaterally. I made sure that all of the tubal remnant was removed. I then moved to the uteroovarian ligaments. I sealed the vessel and transected bilaterally using the bipolar cautery and then cut with the monopolar dilshad. I then moved my dissection to the posterior leaves of the broad ligament. I dissected the posterior leaves of the broad ligament off the uterine arteries skeletonizing them bilaterally. I then took a second clamp with the bipolar cautery and with the dilshad, transected the vessels away from the lateral aspect to the cervical stroma. I dissected the anterior peritoneum off the lower uterine segment. I continually pushed the bladder back and I took excessively great care and I was eventually able to dissect the vesicouterine peritoneum off the lower uterine segment. I then dissected in a V fashion towards the midline between the uterosacral ligaments. This allowed me to skeletonize the uterine vessels bilaterally. The balloon on the QUYEN was insufflated. This allowed me to see the QUYEN circumferentially. I then performed a colpotomy anteriorly and then amputate with cervix away from the vaginal fornix. I then continued the colpotomy circumferentially. Once this was performed, the hotel assistant manager removed the uterus through the vagina. A sponge was left in the vagina to maintain pneumoperitoneum. I then began closure of the vaginal cuff. The uterus was left in the vagina to maintain pneumoperitoneum. I closed the apices of the vaginal cuff with 2-0 Vicryl V lock sutures with a colposuspension through the uterosacral ligaments. This suspended the apices of the vaginal cuff. I extended this to the midline from both sides and overlapped the V lock sutures in the midline. Excellent closure is noted and hemostasis is achieved. All the needles were removed from the patient's abdomen. Now, the robotic instruments were removed and the robot was docked back to laparoscopy. The pelvis was irrigated. At this point I repeated an exam of the pelvis laparoscopically. The pelvis was irrigated. There was no active bleeding noted. Bilateral ureters were seen the entire time during the surgery and were peristalsing. The trocars were removed under direct visualization. The laparoscopic sites were visualized and found to be hemostatic. The trocar sites were injected with 0.25% Marcaine. I closed the 12 mm fascial incisions with a figure of 8 stitch of 0 Vicryl and then the skin incisions were closed with 4-0 Monocryl in a subcuticular fashion and then with Dermabond. Op sites were placed over the incision sites. The instruments were removed from the vagina and I noted there were no abrasions. Sponge, lap, needle and instrument counts correct times two. Findings of the Procedure small uterus, small anterior lower uterine fibroid, evidence of tubal interruption bilaterally, right ovarian cyst, bilateral tubal cysts Allergies and Home Medications Allergies Coded Allergies: lithium (Verified Allergy, Severe, MADE HER VERY ILL, 08/09/17) amitriptyline (Verified Allergy, Unknown, 08/09/17) depression severe Home Medications Albuterol Sulfate 18 Gm Hfa.aer.ad, 2 PUFF IH Q4H PRN for SHORTNESS OF BREATH, ( Reported) Albuterol Sulfate 2.5 Mg/3 Ml Vial.neb, 2.5 MG IH QID, (Reported) Aspirin/Acetaminophen/Caffeine 1 Each Tablet, 2 TAB PO Q6H PRN for MIGRAINE, ( Reported) Benzonatate 100 Mg Capsule, 100-200 MG PO TID PRN for COUGH, (Reported) TAKES 1 TO 2 (100MG) CAPSULES Budesonide 1 Mg/2 Ml Ampul.neb, 1 MG NEB BID, (Reported) Cetirizine HCl 10 Mg Tablet, 10 MG PO DAILY, (Reported) Diclofenac Sodium 100 Gm Gel..gram., 2 GM TOP BID PRN for PAIN, (Reported) Gabapentin 100 Mg Capsule, 200 MG PO BID, (Reported) TAKES 2 (100MG) CAPSULES Hydroxychloroquine Sulfate 200 Mg Tablet, 200 MG PO BID, (Reported) Magnesium Oxide 400 Mg Capsule, 400 MG PO BID, (Reported) Melatonin/Pyridoxine 1 Each Tablet, 5 MG PO HS, (Reported) Metoprolol Succinate 50 Mg Tab.er.24h, 50 MG PO BID, (Reported) Mycophenolate Mofetil 500 Mg Tablet, 1,000 MG PO BID, (Reported) TAKES 2 (500MG) TABLETS Nystatin 100,000 Unit/1 Ml Oral.susp, 6 ML MM QID, (Reported) Omeprazole 40 Mg Capsule.dr, 40 MG PO DAILY, (Reported) Oxycodone HCl/Acetaminophen 1 Each Tablet, 1 EACH PO PRN, (Reported) Potassium Chloride 20 Meq Tab.er.prt, 20 MEQ PO DAILY, (Reported) Sacubitril/Valsartan 1 Each Tablet, 1 TAB PO BID, (Reported) Spironolactone 25 Mg Tablet, 25 MG PO DAILY, (Reported) Sumatriptan 5 Mg [place]umping [place], 5 MG NS UD PRN for MIGRAINE, (Reported) 1 SPRAY NASALLY @ ONSET OF MIGRAINE, MAY REPEAT IN 2 HOURS IF NEEDED. HUMA SCOTT DO Aug 13, 2017 10:10
[2017-08-13] MEDS ORDERED: MEPERIDINE (DEMEROL) INJ 50 MG/ML IVP PRN (10:15)
[2017-08-13] MEDS ORDERED: ONDANSETRON 4 MG/2 ML (SDV) Z0FRAN IVP PRN (10:15)
[2017-08-13] MEDS ORDERED: PROMETHAZINE INJ 25 MG/ML (PHENERGAN) AMP IVP PRN (10:15)
[2017-08-13] MEDS: LACTATED RINGERS 1,000 ML IV SCH ×2 (11:40→20:01)
[2017-08-13] MEDS ORDERED: PANTOPRAZOLE 40 MG (PROTONIX) TAB PO SCH (12:00)
[2017-08-13] MEDS ORDERED: NYSTATIN ORAL SUSP 5 ML UDC PO SCH (13:00)
[2017-08-13] MEDS: HYDROcodone/APAP 7.5 MG/325 MG (LORTAB, LORCET PLUS) TABLET PO PRN ×3 (13:13→20:03)
[2017-08-13] MEDS ORDERED: FUROSEMIDE 40 MG/4 ML INJ (LASIX) IVP ONE (13:30)
[2017-08-13] MEDS ORDERED: NS IV 500 ML 500 ML IV SCH (13:30)
[2017-08-13] MEDS: meTOproloL SUCCINATE 50 MG (TOPROL XL) TAB PO SCH ×2 (13:45→21:56)
[2017-08-13] MEDS: SIMETHICONE 80 MG (MYLICON) CHEW PO PRN ×2 (14:01→18:06)
[2017-08-13] MEDS ORDERED: OXYC-202 PO (15:44)
[2017-08-13] MEDS ORDERED: IBUP-1773 PO (15:44)
--- NOTE | 2017-08-13 15:47 | Discharge Inst-Women's Service ---
Discharge Inst-Women's Serv Depart Medication/Instructions New, Converted or Re-Newed RX: RX on Chart Final Diagnosis dysmenorrhea history of menorrhagia history of CHF history of COPD history of lupus Consults/Follow Up Additional Follow Up: Yes (1 week for incision check, 10-12 weeks for pelvic exam) Activity Activity: Activity as Tolerated (no lifting over 25 lbs) Driving Instructions: No Driving for 1 Week Nothing Inside Vagina: No Douching, No Conger (10-12 weeks), No Tampons Diet Discharge Diet: No Restrictions Symptoms to Report to : Bleeding Excessive, Pain Increased, Fever Over 101 Degrees F, Vaginal Bleeding Increase, Cramps in Feet or Legs, Pain/Pressure in Shoulder, Vaginal Discharge Foul For Any Problems or Questions: Contact Your Physician Skin/Wound Care Infection Signs and Symptoms: Increased Redness, Foul Odor of Wound, Increased Drainage, Skin Itchy or Has a Rash, Increased Swelling, Temperature Above 101 F Operative Area Clean and Dry: Keep Incision Clean/Dry, You May Remove Bandage ( leave bandages in place for three days and then remove. May removed if soiled or wet) Stitches/Edel/Dermabond: Dermabond Bathing Instructions: HUMA Wood DO Aug 13, 2017 15:47
[2017-08-13] MEDS: NYSTATIN ORAL SUSP 5 ML UDC PO SCH ×2 (17:00→19:18)
[2017-08-13] MEDS: KETOROLAC 30 MG/ML VIAL IV PRN (17:25)
[2017-08-13] MEDS: ENOXAPARIN 30 MG/0.3 ML (LOVENOX) SYR SC SCH (17:29)
[2017-08-13] MEDS: ONDANSETRON 4 MG/2 ML (SDV) Z0FRAN IV PRN ×2 (18:06→21:19)
[2017-08-13] MEDS: KCL 20 MEQ TAB (K-DUR) PO SCH (21:56)
[2017-08-13] MEDS: HYDROXYCHLOROQUINE 200 MG (PLAQUENIL) TAB PO SCH (21:56)
[2017-08-13] MEDS: GABAPENTIN 100 MG (NEURONTIN) CAP PO SCH (21:56)
[2017-08-13] MEDS: SPIRONOLACTONE 25 MG (ALDACTONE) TAB PO SCH (21:56)
[2017-08-13] MEDS ORDERED: PROMETHAZINE INJ 25 MG/ML (PHENERGAN) AMP IVP ONE (22:00)
[2017-08-14 00:15] VITALS: BP 114/58
[2017-08-14] MEDS: KETOROLAC 30 MG/ML VIAL IV PRN (00:15)
[2017-08-14] MEDS: SACUBITRIL/VALSARTAN 24/26 MG (ENTRESTO) TABLET PO SCH ×2 (00:16→09:07)
[2017-08-14 04:01] VITALS: BP 118/67
[2017-08-14] MEDS: HYDROcodone/APAP 7.5 MG/325 MG (LORTAB, LORCET PLUS) TABLET PO PRN ×2 (04:01→10:02)
[2017-08-14] MEDS: ENOXAPARIN 30 MG/0.3 ML (LOVENOX) SYR SC SCH (06:25)
[2017-08-14] MEDS ORDERED: RT-ALBUTEROL SULF 2.5 MG/3 ML PRE-MIX VIAL IH PRN (06:45)
[2017-08-14] MEDS: SIMETHICONE 80 MG (MYLICON) CHEW PO PRN ×2 (06:53→09:08)
[2017-08-14 08:45] VITALS: BP 104/54
[2017-08-14] MEDS ORDERED: SPIRONOLACTONE 25 MG (ALDACTONE) TAB PO SCH (09:00)
[2017-08-14] MEDS ORDERED: KCL 20 MEQ TAB (K-DUR) PO SCH (09:00)
[2017-08-14] MEDS: GABAPENTIN 100 MG (NEURONTIN) CAP PO SCH (09:00)
[2017-08-14] MEDS: KCL 20 MEQ TAB (K-DUR) PO SCH (09:07)
[2017-08-14] MEDS: HYDROXYCHLOROQUINE 200 MG (PLAQUENIL) TAB PO SCH (09:07)
[2017-08-14] MEDS: meTOproloL SUCCINATE 50 MG (TOPROL XL) TAB PO SCH (09:07)
[2017-08-14] MEDS: NYSTATIN ORAL SUSP 5 ML UDC PO SCH (09:10)
[2017-08-14] MEDS: SPIRONOLACTONE 25 MG (ALDACTONE) TAB PO SCH (09:10)
[2017-08-14] MEDS: ONDANSETRON 4 MG/2 ML (SDV) Z0FRAN IV PRN (09:16)
[2017-08-14] MEDS ORDERED: IBUPROFEN 600 MG (MOTRIN) TAB PO SCH (10:00)
[2017-08-14 10:50] VITALS: BP 104/54
[2017-08-14] MEDS ORDERED: INFLUENZA TRIvalent 2017-2018 0.5 ML/45 MCG SYR IM ONE (11:45)
== END 2017-08-14 10:50 | disposition home or self-care (01) ==
LOC: SDC 06:15 → WS 11:07 → SDC 08-14 10:50
PROVIDERS: ATTEND Obstetrics & Gynecology
DX: N94.6 Dysmenorrhea, unspecified (principal); N92.1 Excessive and frequent menstruation with irregular cycle; D25.9 Leiomyoma of uterus, unspecified; N83.201 Unspecified ovarian cyst, right side; N83.8 Other noninflammatory disorders of ovary, fallopian tube and broad ligament; I47.1 Supraventricular tachycardia; M32.9 Systemic lupus erythematosus, unspecified; I34.0 Nonrheumatic mitral (valve) insufficiency; I50.20 Unspecified systolic (congestive) heart failure; G47.33 Obstructive sleep apnea (adult) (pediatric); Z87.891 Personal history of nicotine dependence; J45.909 Unspecified asthma, uncomplicated; M06.9 Rheumatoid arthritis, unspecified; Z79.899 Other long term (current) drug therapy
CPT/HCPCS: 84703; 94664

== ENCOUNTER 2018-01-06 16:07 | Emergency (ER) | payer MEDICARE, MEDICAID ==
[~2018-01-06] VITALS: Ht 162.6 cm; Wt 118.0 kg
[~2018-01-06 16:07] MED LIST changes: +ASPI-789 PO; -ASPI1TAB22 PO; +DICL100T3 PO; -HYDR200T PO; +HYDR200T78 PO; -METO-272 PO; +METO-370 PO; +NAPR-1070 PO; -NAPR550T PO; -NF-DICLOTA PO
--- OUTSIDE RECORDS SUMMARY | 2018-01-06 16:13 | XMS REPORT | Continuity of Care Document ---
Author Author [employer] Organization [facility] Address Unknown Phone Unavailable Care Team Providers Care Hurricane Tracker Name Role Phone [employer] Unavailable Unavailable Problems Medications Allergies, Adverse Reactions, Alerts Immunizations Results Vital Signs Encounters Location Location Details Encounter Type Encounter Number Reason For Visit Attending Provider ADM Date DC Date Status Source OUTPATIENT [id number] CARL MATHEW 03/04/2017 03/04/2017 Active [facility] OUTPATIENT [id number] CARL MATHEW 06/13/2017 Active [facility] OUTPATIENT [id number] CARL MATHEW 10/23/2017 Active [facility] O Active [facility] Procedures Plan of Care Social History Assessment and Plan Family History Advance Directives Functional Status
--- OUTSIDE RECORDS SUMMARY | 2018-01-06 16:14 | XMS REPORT | Encounter Summary ---
Author Author [facility] Organization [facility] Address Unknown Phone Unavailable Care Team Providers Care Pack Out Operator Name Role Phone Oleksandr Perry MD PCP Unavailable Patel Wakefield MD Unavailable Reason for Visit * Reason Comments Medication Refill Encounter Details Date Type Department Care Team Description 12/31/2017 Refill [facility] Deshaun Okeefe MD Medication Refill [address] [place] [address] [facility] [address] [place] [address] [place] [address] [phone] Social History Tobacco Use Types Packs/Day Years Used Date Former Smoker Cigarettes 2 5 Quit: 10/10/2009 Smokeless Tobacco: Never Used Alcohol Use Drinks/Week oz/Week Comments No Sex Assigned at Date Recorded Not on file as of this encounter Functional Status Functional Status Response Date of Assessment Does the patient have a hearing impairment: No 10/10/2016 as of this encounter Plan of Treatment Not on fileas of this encounter Visit Diagnoses Not on filein this encounter
--- OUTSIDE RECORDS SUMMARY | 2018-01-06 16:14 | XMS REPORT | Clinical Summary ---
Author Author [facility] Organization [facility] Address Unknown Phone Unavailable Care Team Providers Care Software Architect Name Role Phone Oleksandr Perry MD PCP Unavailable Patel Wakefield MD Unavailable Source Comments Some departments are not documenting in the electronic medical record. If you do not see the information that you expected, contact Release of Information in the Health Information Management department at [phone] for further assistance in locating additional records.[facility] Allergies Active Allergy Reactions Severity Noted Date Comments Amitriptyline SEE COMMENTS Low 10/16/2016 Pt states made her "depressed, crying, emotional" [place] MENTAL STATUS CHANGES Medium 10/10/2016 Current Medications Prescription Sig. Disp. Refills Start [...] times daily as needed for Muscle Cramps. aspirin/acetaminophen/caf Take 1-2 Tabs by mouth 30 Tab 0 10/22/19 Active feine(+) (EXCEDRIN every 8 hours as needed. 17 MIGRAINE) 250/250/65 mg tab calcium carbonate/vitamin Take 1 Tab by mouth twice 60 Tab 1 10/22/19 Active D-3 (OSCAL-500+D) 1250 daily. Calcium Carb 17 mg/200 unit tablet 1250mg delivers 500mg elemental Ca melatonin 5 mg tab Take 1 Tab by mouth at 30 Tab 0 10/22/19 Active bedtime daily. 17 albuterol 0.5% Inhale 2.5 mg solution by Active (PROVENTIL; VENTOLIN) 2.5 nebulizer as directed mg/0.5 mL nebulizer every 6 hours as needed solution for Shortness of Breath or Wheezing. furosemide (LASIX) 80 mg Take 1 Tab by mouth twice 60 Tab 11 11/07/19 Active tabletIndications: daily. 17 Chronic systolic congestive heart failure, NYHA class 2 ([facility]) metOLazone (ZAROXOLYN) Take 1 Tab by mouth 10 Tab 0 11/23/19 Active 2.5 mg tablet daily. Take 1 tab 11/23, 1 17 tab 11/26 amoxicillin/K clavulanate Take 1 Tab by mouth every Active (AUGMENTIN) 875/125 mg 12 hours. Take with food. tablet sulfamethoxazole-trimetho Take 1 tab daily three 12 Tab 1 11/30/19 Active prim (BACTRIM DS) 800-160 times per week. 17 mg tablet spironolactone Take 1 Tab by mouth 30 Tab 11 12/18/19 Active (ALDACTONE) 25 mg tablet daily. Take with food. 17 metoprolol XL (TOPROL XL) Take 1 Tab by mouth twice 60 Tab 11 Active 50 mg extended release daily. 17 tablet magnesium oxide (MAG-OX) Take 1 Tab by mouth twice 60 Tab 11 12/18/19 Active 400 mg tablet daily. 17 prednisone (DELTASONE) 10 Take along with 20mg 30 Tab 1 01/19/20 Active mg tablet tabs. Starting at 25mg 17 daily taper by 5mg every 2 weeks prednisone (DELTASONE) 5 Take along with 10mg 45 Tab 1 02/06/20 Active mg tablet tablets. Take 1.5 tablets 17 daily to equal a total of 17.5mg daily. potassium chloride SR Take 1 Tab by mouth 30 Cap 11 03/04/20 Active (K-DUR) 20 mEq tablet daily. Take with a meal 17 and a full glass of water. mycophenolate mofetil Take 2 Tabs by mouth 120 Tab 1 03/25/20 Active (CELLCEPT) 500 mg tablet twice daily. Take on an 17 empty stomach. diclofenac(+) (VOLTAREN) Apply 2 g topically to 3 Tube 11 03/29/20 Active 1 % topical gel affected area four times 17 daily as needed. Apply to bilateral hands. sacubitril/valsartan Take 1 Tab by mouth twice 60 Tab 8 05/04/20 Active (ENTRESTO) 49/51 mg daily. 17 tablet gabapentin (NEURONTIN) Take 2 capsules by mouth 120 capsule 1 Active 100 mg capsule twice daily. 17 Active Problems Problem Noted Date Chronic systolic congestive heart failure, NYHA class 2 ([facility]) 12/06/2016 Overview: ECHO 01/21/2017 ([place], [place]) 1. LV normal in size. Systolic function EF 45% 2. Mild mitral and tricuspid regurg. 3. Estimated PAP 25 mmHg Thyroid nodule 11/29/2016 Overview: 7 mm on the right and 4 mm on the left on US 10/17/2016 DELLA (acute kidney injury) ([facility]) 11/08/2016 Patient is Yarsani 10/19/2016 Acute subclavian vein thrombosis ([facility]) 10/19/2016 Chronic anticoagulation 10/19/2016 Myocarditis ([facility]) 10/18/2016 Acute systolic congestive heart failure ([facility]) 10/16/2016 Rheumatoid arthritis ([facility]) 10/12/2016 Severe mitral valve regurgitation 10/11/2016 Systemic lupus erythematosus ([facility]) 10/11/2016 Chronic rheumatic arthritis ([facility]) 10/11/2016 Tricuspid regurgitation 10/11/2016 HALLIE on CPAP 10/11/2016 Migraines 10/11/2016 GERD (gastroesophageal reflux disease) 10/11/2016 Tachycardia 10/11/2016 Sepsis ([facility]) 10/11/2016 Encounters Date Type Specialty Care Team Description 12/31/2017 Refill Cardiology Deshaun Okeefe MD Medication Refill 11/07/2017 Telephone Cardiology Mirian Lu RN Medication Refill (request for lasix) from Last 3 Months Family History Medical History Relation Name Comments Asthma Mother Thyroid Disease Mother Relation Name Status Comments Mother Social History Tobacco Use Types Packs/Day Years Used Date Former Smoker Cigarettes 2 5 Quit: 10/10/2009 Smokeless Tobacco: Never Used Alcohol Use Drinks/Week oz/Week Comments No Sex Assigned at Date Recorded Not on file Last Filed Vital Signs Vital Sign Reading Time Taken Blood Pressure 100/60 02/21/2017 10:35 AM CDT Pulse 48 02/21/2017 10:35 AM CDT Temperature 36.3 C (97.4 F) 02/21/2017 10:35 AM CDT Respiratory Rate 16 11/27/2016 9:29 AM FIBRE OPTIC CABLE SPLICER Oxygen Saturation 99% 02/13/2017 9:18 AM CDT Inhaled Oxygen - - Concentration Weight 108.4 kg (239 lb) 02/21/2017 10:35 AM CDT Height 162.6 cm (5' 4") 02/21/2017 10:35 AM CDT Body Mass Index 41.02 02/21/2017 10:35 AM CDT Plan of Treatment Health Maintenance Due Date Last Done Comments PHYSICAL (COMPREHENSIVE) 1979 EXAM PERTUSSIS VACCINE 1983 TETANUS VACCINE 1989 CERVICAL CANCER SCREENING 2002 BREAST CANCER SCREENING 2012 INFLUENZA VACCINE 07/14/2018 HIV SCREENING Completed 10/17/2016 Results Not on filefrom Last 3 Months
--- OUTSIDE RECORDS SUMMARY | 2018-01-06 16:15 | XMS REPORT | Encounter Summary ---
Author Author [facility] Organization [facility] Address Unknown Phone Unavailable Care Team Providers Care Dumb Waiter Operator Name Role Phone Oleksandr Perry MD PCP Unavailable Patel Wakefield MD Unavailable Reason for Visit * Reason Comments Medication Refill request for lasix Encounter Details Date Type Department Care Team Description 11/07/2017 Telephone [facility] Mirian Lu, pier master Refill [address] [place] (request for lasix) [facility] [address] [place] [address] Social History Tobacco Use Types Packs/Day Years Used Date Former Smoker Cigarettes 2 5 Quit: 10/10/2009 Smokeless Tobacco: Never Used Alcohol Use Drinks/Week oz/Week Comments No Sex Assigned at Date Recorded Not on file as of this encounter Functional Status Functional Status Response Date of Assessment Does the patient have a hearing impairment: No 10/10/2016 as of this encounter Miscellaneous Notes * Telephone Encounter - Mirian Lu, RN - 11/07/2017 12:12 PM MATERIAL REQUIREMENTS PLANNING MANAGER Received refill request for Lasix. Pt has not been seen since February 2017 and was a no show for 2 scheduled appointments. Pt has followed with a director of cardiopulmonary services closer to her home in the past. Called pt and LMOM requesting call back to verify if she is still following with director of cardiopulmonary services closer to her home or if she needs to reschedule and appointment with us. in this encounter Plan of Treatment Not on fileas of this encounter Visit Diagnoses Not on filein this encounter
--- NOTE | 2018-01-06 16:59 | ED Cough/URI ---
General Chief Complaint: Fever-Adult/Adol Stated Complaint: FLU SYMPTOMS Nursing Triage Note: PT STATES FLU LIKE S/S THAT STARTED LAST WEEK, SAW HER DR LAST SATURDAY, WAS PUT ON ABX, VOMITING STARTED LAST NIGHT, GENERAL WEAKNESS AND HEADACHE. Source: patient Exam Limitations: no limitations History of Present Illness Date Seen by Provider: Jan 06, 2018 Time Seen by Provider: 16:58 Initial Comments To ER with c/o flulike symptoms including a cough, rhinorrhea general malaise and headache. The symptoms began last week. She was seen by her primary care provider and started on Augmentin but denies any improvement. She does have a history of heart failure she is on Entresto Timing/Duration: constant Severity/Quality: productive cough Associated Symptoms: cough, shortness of breath Allergies and Home Medications Allergies Coded Allergies: lithium (Verified Allergy, Severe, MADE HER VERY ILL, 08/09/17) amitriptyline (Verified Allergy, Unknown, 08/09/17) depression severe Home Medications Albuterol Sulfate 18 Gm Hfa.aer.ad, 2 PUFF IH Q4H PRN for SHORTNESS OF BREATH, ( Reported) Albuterol Sulfate 2.5 Mg/3 Ml Vial.neb, 2.5 MG IH QID, (Reported) Aspirin/Acetaminophen/Caffeine 1 Each Tablet, 2 TAB PO Q6H PRN for MIGRAINE, ( Reported) Benzonatate 100 Mg Capsule, 100-200 MG PO TID PRN for COUGH, (Reported) TAKES 1 TO 2 (100MG) CAPSULES Budesonide 1 Mg/2 Ml Ampul.neb, 1 MG NEB BID, (Reported) Cetirizine HCl 10 Mg Tablet, 10 MG PO DAILY, (Reported) Diclofenac Sodium 100 Gm Gel..gram., 2 GM TOP BID PRN for PAIN, (Reported) Gabapentin 100 Mg Capsule, 200 MG PO BID, (Reported) TAKES 2 (100MG) CAPSULES Hydroxychloroquine Sulfate 200 Mg Tablet, 200 MG PO BID, (Reported) Ibuprofen 600 Mg Tablet, 600 MG PO Q6H Prescribed by: HUMA SCOTT on 08/13/17 1544 Magnesium Oxide 400 Mg Capsule, 400 MG PO BID, (Reported) Melatonin/Pyridoxine 1 Each Tablet, 5 MG PO HS, (Reported) Metoprolol Succinate 50 Mg Tab.er.24h, 50 MG PO BID, (Reported) Mycophenolate Mofetil 500 Mg Tablet, 1,000 MG PO BID, (Reported) TAKES 2 (500MG) TABLETS Nystatin 100,000 Unit/1 Ml Oral.susp, 6 ML MM QID, (Reported) Omeprazole 40 Mg Capsule.dr, 40 MG PO DAILY, (Reported) Oxycodone HCl/Acetaminophen 1 Each Tablet, 1 EACH PO PRN Prescribed by: HUMA SCOTT on 08/13/17 154 Potassium Chloride 20 Meq Tab.er.prt, 20 MEQ PO DAILY, (Reported) Prednisone 20 Mg Tab, 40 MG PO DAILY Prescribed by: MACARIO TUCKER on 01/06/181903 Promethazine HCl/Codeine 5 Ml Syrup, 5 ML PO Q6H PRN for COUGH Prescribed by: MACARIO TUCKER on 01/06/181903 Sacubitril/Valsartan 1 Each Tablet, 1 TAB PO BID, (Reported) Spironolactone 25 Mg Tablet, 25 MG PO DAILY, (Reported) Sumatriptan 5 Mg [place], 5 MG NS UD PRN for MIGRAINE, (Reported) 1 SPRAY NASALLY @ ONSET OF MIGRAINE, MAY REPEAT IN 2 HOURS IF NEEDED. Patient Home Medication List Home Medication List Reviewed: Yes Constitutional: see HPI EENTM: see HPI Respiratory: see HPI, cough Cardiovascular: no symptoms reported Genitourinary: no symptoms reported Musculoskeletal: no symptoms reported Skin: no symptoms reported Past Bbezdws-Qyuvmf-Rarctf Hx Patient Social History Type Used: Cigarettes Former Smoker, Quit: Oct 14, 2008 Recent Foreign Travel: No Contact w/Someone Who Travel: No Recent Infectious Disease Expo: No Recent Hopitalizations: No Immunizations Up To Date Tetanus Booster (TDap): Unknown PED Vaccines UTD: No Seasonal Allergies Seasonal Allergies: Yes Surgeries History of Surgeries: Yes (breast augmentation, ESWL) Surgeries: Breast, Tubal Ligation Respiratory History of Respiratory Disorde: Yes (CPAP) Respiratory Disorders: Asthma, Chronic Bronchitis, Sleep Apnea Currently Using CPAP: Yes Currently Using BIPAP: No Cardiovascular History of Cardiac Disorders: Yes (HX OF FAST HR, RELATED TO LUPUS) Cardiac Disorders: Cardiomyopathy, Chronic Edema/Swelling, Congenital Heart Disease, Palpitations, Valvular Heart Disease Neurological History of Neurological Disord: Yes (HASNT HAD ONE SINCE 2002-FROM MEDICATION) Neurological Disorders: Seizure Disorder Reproductive System Hx Reproductive Disorders: Yes (DUB, UTERINE POLYP) Sexually Transmitted Disease: No HIV/AIDS: No Female Reproductive Disorders: Menstrual Problems THIRD OFFICER History: Tubal Ligation Genitourinary History of Genitourinary Disor: Yes Genitourinary Disorders: Kidney Stones Gastrointestinal History of Gastrointestinal Di: No Gastrointestinal Disorders: Gastroesophageal Reflux Musculoskeletal History of Musculoskeletal Dis: Yes (HX Coccyx fx; LUPUS) Musculoskeletal Disorders: Degenerate Disk Disease, Arthritis, Rheumatoid Arthritis, Chronic Back Pain Endocrine History of Endocrine Disorders: Yes Endocrine Disorders: Lupus HEENT Loss of Vision: Bilateral Hearing Impairment: Denies Cancer History of Cancer: No Psychosocial History of Psychiatric Problem: Yes (DID) Behavioral Health Disorders: ADD/ADHD, Personality Disorder Integumentary History of Skin or Integumenta: No Blood Transfusions History of Blood Disorders: No Adverse Reaction to a Blood Tr: No (N/A) Family Medical History Family Medial History: Asthma 19 MOTHER Thyroid disease 19 MOTHER No Family History of: Alzheimer's disease Completed stroke Diabetes mellitus Hypertension Myocardial infarction Physical Exam Vital Signs Vital Signs - First Documented 01/06/18 16:51 Temp 99.1 Pulse 153 Resp 22 B/P (MAP) 101/44 (63) Pulse Ox 100 O2 Delivery Room Air Capillary Refill : Less Than 3 Seconds General Appearance: WD/WN, no apparent distress Eyes: Bilateral Eye Normal Inspection, Bilateral Eye PERRL, Bilateral Eye EOMI HEENT: PERRL/EOMI, normal ENT inspection Respiratory: normal breath sounds, no respiratory distress, no accessory muscle use Cardiovascular: no murmur, tachycardia Gastrointestinal: normal bowel sounds, non tender, soft Neurologic/Psychiatric: alert, normal mood/affect, oriented x 3 Skin: normal color, warm/dry Progress/Results/Core Measures Suspected Sepsis Recent Fever Within 48 Hours: Yes Infection Criteria Present: None New/Unexplained Altered Menta: No Sepsis Screen: No Definite Risk Sepsis Diagnosis: SIRS Temperature:99.1 Pulse: 153 Respiratory Rate: 22 Laboratory Tests 01/06/18 17:10: White Blood Count 3.8L Blood Pressure 157 / Mean: Laboratory Tests 01/06/18 17:10: Creatinine 0.82, Platelet Count 193, Total Bilirubin 0.4 Results/Orders Lab Results Laboratory Tests Test 01/06/18 17:10 Range/Units White Blood Count 3.8 L 4.3-11.0 10^3/uL Red Blood Count 3.78 L 4.35-5.85 10^6/uL Hemoglobin 11.3 L 11.5-16.0 G/DL Hematocrit 34 L 35-52 % Mean Corpuscular Volume 91 80-99 FL Mean Corpuscular Hemoglobin 30 25-34 PG Mean Corpuscular Hemoglobin Concent 33 32-36 G/DL Red Cell Distribution Width 13.7 10.0-14.5 % Platelet Count 193 130-400 10^3/uL Mean Platelet Volume 9.6 7.4-10.4 FL Neutrophils (%) (Auto) 65 42-75 % Lymphocytes (%) (Auto) 18 12-44 % Monocytes (%) (Auto) 14 H 0-12 % Eosinophils (%) (Auto) 2 0-10 % Basophils (%) (Auto) 0 0-10 % Neutrophils # (Auto) 2.5 1.8-7.8 X 10^3 Lymphocytes # (Auto) 0.7 L 1.0-4.0 X 10^3 Monocytes # (Auto) 0.5 0.0-1.0 X 10^3 Eosinophils # (Auto) 0.1 0.0-0.3 10^3/uL Basophils # (Auto) 0.0 0.0-0.1 10^3/uL D-Dimer 1.11 H 0.00-0.49 UG/ML Sodium Level 138 135-145 MMOL/L Potassium Level 4.2 3.6-5.0 MMOL/L Chloride Level 107 98-107 MMOL/L Carbon Dioxide Level 26 21-32 MMOL/L Anion Gap 5 5-14 MMOL/L Blood Urea Nitrogen 8 7-18 MG/DL Creatinine 0.82 0.60-1.30 MG/DL Estimat Glomerular Filtration Rate > 60 BUN/Creatinine Ratio 10 Glucose Level 94 70-105 MG/DL Calcium Level 8.8 8.5-10.1 MG/DL Magnesium Level 2.2 1.8-2.4 MG/DL Total Bilirubin 0.4 0.1-1.0 MG/DL Aspartate Amino Transf (AST/SGOT) 23 5-34 U/L Alanine Aminotransferase (ALT/SGPT) 15 0-55 U/L Alkaline Phosphatase 107 40-136 U/L Troponin I < 0.30 <0.30 NG/ML B-Type Natriuretic Peptide 19.5 <100.0 PG/ML Total Protein 6.8 6.4-8.2 GM/DL Albumin 4.1 3.2-4.5 GM/DL My Orders Orders - MACARIO TUCKER APRN Cbc With Automated Diff (01/06/18 16:55) Comprehensive Metabolic Panel (01/06/18 16:55) Magnesium (01/06/18 16:55) BNP (01/06/18 16:55) Troponin I (01/06/18 16:55) Ekg Tracing (01/06/18 16:55) Chest 1 View, Ap/Pa Only (01/06/18 16:55) Metoprolol Tartrate Injection (Lopressor (01/06/18 17:00) Fibrin Degradation Products (01/06/18 17:00) Promethazine/ Codeine Syrup (Phenergan W (01/06/18 17:00) Morphine Injection (Morphine Injection (01/06/18 17:15) Benzonatate Capsule (Tessalon Perles) (01/06/18 17:30) Ns Iv 500 Ml (Sodium Chloride 0.9%) (01/06/18 17:30) Morphine Injection (Morphine Injection (01/06/18 17:45) Ct Angio Chest W (01/06/18 17:49) Levalbuterol (Non-Formulary) (Xopenex (N (01/06/18 18:00) Iohexol Injection (Omnipaque 350 Mg/Ml 1 (01/06/18 18:00) Ns (Ivpb) (Sodium Chloride 0.9% Ivpb Bag (01/06/18 18:00) Ns Iv 1000 Ml (Sodium Chloride 0.9%) (01/06/18 18:00) Ketorolac Injection (Toradol Injection) (01/06/18 18:45) Diphenhydramine Injection (Benadryl Inje (01/06/18 19:00) Medications Given in ED Current Medications Medications Dose Ordered Sig/Deya Route Start Time Stop Time Status Last Admin Dose Admin Diphenhydramine HCl 25 mg ONCE ONCE IVP 01/06/18 19:00 01/06/18 19:01 DC 01/06/18 19:01 25 MG Iohexol 150 ml ONCE ONCE IV 01/06/18 18:00 01/06/18 18:01 DC 01/06/18 18:10 150 ML Ketorolac Tromethamine 30 mg ONCE ONCE IVP 01/06/18 18:45 01/06/18 18:46 DC 01/06/18 19:01 30 MG Morphine Sulfate 2 mg ONCE ONCE IVP 01/06/18 17:15 01/06/18 17:16 DC 01/06/18 17:22 2 MG Morphine Sulfate 2 mg ONCE ONCE IVP 01/06/18 17:45 01/06/18 17:46 DC 01/06/18 17:55 2 MG Sodium Chloride 100 ml ONCE ONCE IV 01/06/18 18:00 01/06/18 18:01 DC 01/06/18 18:10 100 ML Vital Signs/I&O Vital Sign - Last 12Hours 01/06/18 01/06/18 01/06/18 01/06/18 16:51 17:22 17:55 18:04 Temp 99.1 99.1 99.1 Pulse 153 Resp 22 B/P (MAP) 101/44 (63) Pulse Ox 100 98 O2 Delivery Room Air Room Air 01/06/18 01/06/18 19:04 19:23 Temp 97.7 97.7 Pulse 130 128 Resp 28 27 B/P (MAP) 118/49 (72) 95/76 (72) Pulse Ox 99 99 O2 Delivery Room Air Room Air Capillary Refill : Less Than 3 Seconds Diagnostic Imaging Diagonstic Imaging: Xray Comments NAME: MATHIEU PISANO [place] MED REC#: [id number] PT STATUS: REG ER : 1970 PHYSICIAN: MACARIO TUCKER APRN ADMIT DATE: 01/06/18/ER Draft Date of Exam:01/06/18 CHEST 1 VIEW, AP/PA ONLY INDICATION: Flu-like symptoms. COMPARISON: 01/21/2017. FINDINGS: Single frontal view of the chest is obtained. Heart size is normal. The pulmonary vessels appear unremarkable. There is no pneumothorax, mediastinal widening, or pleural fluid. The lungs are clear. IMPRESSION: Negative chest. Dictated on workstation # [id number] Dict: 01/06/18 1726 Trans: 01/06/18 1730 [id number] Interpreted by: MATT YUEN DO Electronically signed by: NAME: NORRISMATHIEU MED REC#: [id number] PT STATUS: REG ER : 1970 PHYSICIAN: MACARIO TUCKER APRN ADMIT DATE: 01/06/18/ER Draft Date of Exam:01/06/18 CT ANGIO CHEST W PROCEDURE: CT angiography of the chest with contrast. TECHNIQUE: Multiple contiguous axial images were obtained through the chest after uneventful bolus administration of intravenous contrast. Reconstructed CTA MIP acquisitions were also performed. INDICATION: Shortness of breath and congestion. FINDINGS: There has been bilateral breast augmentation with implants. The right implant appears to be ruptured. The left implant is intact. There are no filling defects seen within the pulmonary arteries to suggest pulmonary embolism. The heart size is normal. The thoracic aorta is normal in caliber without evidence of dissection. There is minimal scarring in the left lung base. There is no pleural or pericardial fluid. There is no pneumothorax. There is no pathologically enlarged adenopathy in the chest. There is a cyst in the liver. The remainder of the intra-abdominal structures are unremarkable. The osseous structures are unremarkable. IMPRESSION: The right breast implant is ruptured. There are a few subcentimeter lymph nodes in the axilla, however, no pathologically enlarged adenopathy is seen in the chest. No evidence of pulmonary embolism or of aortic dissection. Hepatic cyst. Dictated on workstation # [id number] Dict: 01/06/18 1824 Trans: 01/06/18 1835 [facility] [id number] Interpreted by: DEAN CAT MD Electronically signed by: Departure Communication (Admissions) Progress Notes 1903-Still tachycardic at 130s however does not stop coughing. I believe her HR will decrease wwhen the cough is controlled. Impression Impression: Primary Impression: Acute bronchitis Disposition: HOME, SELF-CARE Condition: Stable (ERASED) Departure-Patient Inst. Decision time for Depature: 18:50 Referrals: IRENE PETERS (PCP/Family) Primary Care Physician Patient Instructions: Acute Bronchitis, Adult (DC) Add. Discharge Instructions: 1. Follow up with your doctor tomorrow 2. Medication as directed All discharge instructions reviewed with patient and/or family. Voiced understanding. Scripts Prednisone (Prednisone) 20 Mg Tab 40 MG PO DAILY, #6 TAB Prov: MACARIO TUCKER APRN 01/06/18 Promethazine HCl/Codeine (Prometh-Codein 6.25-10 mg/5 ml) 5 Ml Syrup 5 ML PO Q6H Y for COUGH, #120 ML Prov: MACARIO TUCKER APRN 01/06/18 MACARIO TUCKER APRN Jan 06, 2018 16:59
[2018-01-06] MEDS ORDERED: meTOprolol 5 MG/5 ML (LOPRESSOR) VIAL IV ONE (17:00)
[2018-01-06] MEDS ORDERED: PROMETHAZINE/ CODEINE SYRUP 5 ML UDC PO ONE (17:00)
[2018-01-06] MEDS ORDERED: morphine INJ 10 MG/ML 1ML (SYR OR VIAL) IVP ONE ×2 (17:15→17:45)
[2018-01-06 17:22] LABS: BASOPHILS % (AUTO) 0 % (0-10); EOSINOPHILS # (AUTO) 0.1 10^3/uL (0.0-0.3); EOSINOPHILS % (AUTO) 2 % (0-10); HEMATOCRIT 34 % (35-52); HEMOGLOBIN 11.3 G/DL (11.5-16.0); LYMPHOCYTES # (AUTO) 0.7 X 10^3 (1.0-4.0); LYMPHOCYTES % (AUTO) 18 % (12-44); MEAN CORPUSCULAR HEMOGLOBIN 30 PG (25-34); MEAN CORPUSCULAR HGB CONC 33 G/DL (32-36); MEAN CORPUSCULAR VOLUME 91 FL (80-99); MEAN PLATELET VOLUME 9.6 FL (7.4-10.4); MONOCYTES # (AUTO) 0.5 X 10^3 (0.0-1.0); MONOCYTES % (AUTO) 14 % (0-12); NEUTROPHILS # (AUTO) 2.5 X 10^3 (1.8-7.8); NEUTROPHILS % (AUTO) 65 % (42-75); PLATELET COUNT 193 10^3/uL (130-400); RED BLOOD COUNT 3.78 10^6/uL (4.35-5.85); RED CELL DISTRIBUTION WIDTH 13.7 % (10.0-14.5); WHITE BLOOD COUNT 3.8 10^3/uL (4.3-11.0)
[2018-01-06] MEDS ORDERED: BENZONATATE 100 MG (TESSALON) CAPSULE PO SCH (17:30)
[2018-01-06] MEDS ORDERED: NS IV 500 ML 500 ML IV SCH (17:30)
--- NOTE | 2018-01-06 17:31 | Diagnostic Imaging Report ---
INDICATION: Flu-like symptoms. COMPARISON: 01/21/2017. FINDINGS: Single frontal view of the chest is obtained. Heart size is normal. The pulmonary vessels appear unremarkable. There is no pneumothorax, mediastinal widening, or pleural fluid. The lungs are clear. IMPRESSION: Negative chest. Dictated by: Dictated on workstation # [id number]
[2018-01-06 17:45] LABS: ALANINE AMINOTRANSFERASE 15 U/L (0-55); ALBUMIN 4.1 GM/DL (3.2-4.5); ALKALINE PHOSPHATASE 107 U/L (40-136); BILIRUBIN,TOTAL 0.4 MG/DL (0.1-1.0); BUN/CREATININE RATIO 10; CALCIUM 8.8 MG/DL (8.5-10.1); CARBON DIOXIDE 26 MMOL/L (21-32); CHLORIDE 107 MMOL/L (98-107); CREATININE SERUM 0.82 MG/DL (0.60-1.30); GFR ESTIMATED > 60; GLUCOSE 94 MG/DL (70-105); MAGNESIUM 2.2 MG/DL (1.8-2.4); POTASSIUM 4.2 MMOL/L (3.6-5.0); SODIUM 138 MMOL/L (135-145); TOTAL PROTEIN 6.8 GM/DL (6.4-8.2)
[2018-01-06] MEDS ORDERED: RT-LEVALBUTEROL (XOPENEX) 1.25 MG/3 ML NEB NON-FORMULARY INH SCH (18:00)
[2018-01-06] MEDS ORDERED: NS IV 1000 ML 1,000 ML IV SCH (18:00)
[2018-01-06] MEDS ORDERED: IOHEXOL 350 MG/ML 150 ML (OMNIPAQUE 350) VIAL IV ONE (18:00)
[2018-01-06] MEDS ORDERED: NS 100 ML (IVPB) BAG IV ONE (18:00)
--- NOTE | 2018-01-06 18:35 | Diagnostic Imaging Report ---
PROCEDURE: CT angiography of the chest with contrast. TECHNIQUE: Multiple contiguous axial images were obtained through the chest after uneventful bolus administration of intravenous contrast. Reconstructed CTA MIP acquisitions were also performed. INDICATION: Shortness of breath and congestion. FINDINGS: There has been bilateral breast augmentation with implants. The right implant appears to be ruptured. The left implant is intact. There are no filling defects seen within the pulmonary arteries to suggest pulmonary embolism. The heart size is normal. The thoracic aorta is normal in caliber without evidence of dissection. There is minimal scarring in the left lung base. There is no pleural or pericardial fluid. There is no pneumothorax. There is no pathologically enlarged adenopathy in the chest. There is a cyst in the liver. The remainder of the intra-abdominal structures are unremarkable. The osseous structures are unremarkable. IMPRESSION: The right breast implant is ruptured. There are a few subcentimeter lymph nodes in the axilla, however, no pathologically enlarged adenopathy is seen in the chest. No evidence of pulmonary embolism or of aortic dissection. Hepatic cyst. Dictated by: Dictated on workstation # [id number]
[2018-01-06] MEDS ORDERED: KETOROLAC 30 MG/ML VIAL IVP ONE (18:45)
[2018-01-06] MEDS ORDERED: diphenhydrAMINE 50 MG/ML INJ (BENADRYL) IVP ONE (19:00)
[2018-01-06 19:04] VITALS: BP 118/49
[2018-01-06] MEDS ORDERED: PROM5SYR PO (19:04)
[2018-01-06] MEDS ORDERED: PRD20T PO (19:04)
[2018-01-06 19:23] VITALS: BP 95/76
== END 2018-01-06 19:23 | disposition home or self-care (01) ==
LOC: ER 16:07
DX: J20.9 Acute bronchitis, unspecified (principal); I25.2 Old myocardial infarction; J45.909 Unspecified asthma, uncomplicated; G47.30 Sleep apnea, unspecified; I42.9 Cardiomyopathy, unspecified; G40.909 Epilepsy, unspecified, not intractable, without status epilepticus; K21.9 Gastro-esophageal reflux disease without esophagitis; F90.9 Attention-deficit hyperactivity disorder, unspecified type; Z87.442 Personal history of urinary calculi; Z85.42 Personal history of malignant neoplasm of other parts of uterus; Z88.8 Allergy status to other drugs, medicaments and biological substances; Z79.82 Long term (current) use of aspirin; Z79.52 Long term (current) use of systemic steroids; Z87.891 Personal history of nicotine dependence; Z98.51 Tubal ligation status
CPT/HCPCS: 36415; 71045; 71275; 80053; 83735; 83880; 84484; 85025; 85379; 93005; 94640; 96361; 96374; 96375; 96376

== ENCOUNTER 2019-03-14 20:48 | Outpatient (CLI) | payer MEDICARE, MEDICAID ==
[~2019-03-14 20:48] MED LIST changes: -BENZ-13 PO; +BENZ100C18 PO; -DICL100T3 PO; +DICL100T83 PO; -OXYC-202 PO; +OXYC1TAB12 PO; +PROM5SYR PO; -SPIR25TA3 PO; +SPIR25TA5 PO
== END 2019-03-15 06:06 | disposition home or self-care (01) ==
LOC: SLEEP 20:48
PROVIDERS: ATTEND Nurse Practitioner Family
DX: G47.33 Obstructive sleep apnea (adult) (pediatric) (principal)
CPT/HCPCS: 95811

== ENCOUNTER → 2019-05-15 | Outpatient (CLI) | payer MEDICARE, MEDICAID ==
[~2019-05-15] MED LIST changes: -CALC-1 PO; +CALC-3 PO
== END ==
LOC: CARD 11:37
PROVIDERS: ATTEND Physician Assistant
DX: I50.9 Heart failure, unspecified (principal); F90.9 Attention-deficit hyperactivity disorder, unspecified type; G47.33 Obstructive sleep apnea (adult) (pediatric)
CPT/HCPCS: 93306

== ENCOUNTER → 2019-07-15 | Outpatient (CLI) | payer MEDICARE, MEDICAID ==
[~2019-07-15] MED LIST changes: +RT-ALBUTEROL SULF 2.5 MG/3 ML PRE-MIX VIAL INH ONE
--- NOTE | 2019-07-15 12:23 | Diagnostic Imaging Report ---
EXAMINATION: CT Chest without contrast. TECHNIQUE: Multiple contiguous axial images were obtained through the chest without the use of intravenous contrast. All CT scans use one or more of the following dose optimizing techniques: automated exposure control, MA and/or KvP adjustment based on a patient size and exam type, or iterative reconstruction. HISTORY: Lupus, shortness of breath FINDINGS: Comparison is 01/06/2018. The lungs are clear without edema or pneumonia. No pleural effusion or pneumothorax. No suspicious nodules. Bilateral breast implants are present with collapse of the right-sided implant. Heart size is normal. No pericardial effusion. Aorta is normal in caliber. There is no axillary, supraclavicular or mediastinal lymphadenopathy. Limited views of the upper abdomen are unremarkable. There are no suspicious osseus lesions. IMPRESSION: 1. No acute abnormality in the chest. Dictated by: Dictated on workstation # [id number]
== END ==
LOC: RT 11:42
PROVIDERS: ATTEND Nurse Practitioner Family
DX: J30.9 Allergic rhinitis, unspecified (principal); G47.33 Obstructive sleep apnea (adult) (pediatric); G47.19 Other hypersomnia; E66.9 Obesity, unspecified; M32.10 Systemic lupus erythematosus, organ or system involvement unspecified; Z98.82 Breast implant status
CPT/HCPCS: 71250; 94060; 94640; 94726; 94729

== ENCOUNTER → 2021-01-04 | Outpatient (CLI) | payer MEDICARE, MEDICAID ==
[~2021-01-04] MED LIST changes: +ACHYD1T PO; -CETI10TA20 PO; +CETI10TA49 PO; -DIAZ5TAB3 PO; +DIAZ5TAB49 PO; -HYDR-3820 PO; -METO-370 PO; +METO50TA7 PO; +OMEP40CA27 PO; -OMEP40CA36 PO; +ONDA-105 PO; -ONDA4TAB10 PO; -OXYC-471 PO; +OXYC1TAB11 PO; -SACU1TAB PO; +SACU1TAB2 PO; -VALA1000 PO; +VALA10007 PO
== END ==
LOC: RT 08:50
PROVIDERS: ATTEND Nurse Practitioner Family
DX: J98.4 Other disorders of lung (principal)
CPT/HCPCS: 94060; 94726; 94729

== ENCOUNTER 2021-08-04 10:27 | Emergency (ER) | payer MEDICARE, MEDICAID ==
[~2021-08-04] VITALS: Ht 162 cm; Wt 122.0 kg
[~2021-08-04 10:27] MED LIST changes: +DICL100G13 TOP; -DICL100G31 TOP; -DICL100T83 PO; -DOXY100C2 PO; +DOXY100C5 PO; +NF-DICLOTA PO; -OMEP40CA27 PO; +OMEP40CA6 PO; -PHEN37.53 PO; +PHEN37.58 PO; -RT-ALBUTEROL SULF 2.5 MG/3 ML PRE-MIX VIAL INH ONE
--- NOTE | 2021-08-04 10:47 | ED Cough/URI ---
General Chief Complaint: Cough/Cold/Flu Symptoms Stated Complaint: CONGESTION, SALGADO, COUGH Source: patient Exam Limitations: no limitations History of Present Illness Date Seen by Provider: Aug 04, 2021 Time Seen by Provider: 10:46 Initial Comments To ER by private vehicle with reports of nasal congestion, sinus pressure, headache, cough productive in nature for 3 days. No fevers. She has had the [employer] vaccine. Tested negative for Covid at [facility] yesterday. She does have lupus and is on CellCept and hydroxychloroquine. Timing/Duration: constant Severity/Quality: productive cough Prior Episodes/Possible Cause: no prior episodes Associated Symptoms: cough, nasal congestion, sinus infection Allergies and Home Medications Allergies Coded Allergies: lithium (Verified Allergy, Severe, MADE HER VERY ILL, 08/09/17) amitriptyline (Verified Allergy, Unknown, 08/09/17) depression severe Patient Home Medication List Home Medication List Reviewed: Yes Albuterol Sulfate (Ventolin Hfa) 18 Gm Hfa.aer.ad, 2 PUFF IH Q4H PRN for SHORTNESS OF BREATH, (Reported) Entered as Reported by: MARÍA COWAN on 10/09/16 111 Last Action: Last Taken Edited Albuterol Sulfate (Albuterol Sulfate) 2.5 Mg/3 Ml Vial.neb, 2.5 MG IH QID, (Reported) Entered as Reported by: JAMIE DUMONT on 01/21/171533 Last Action: Reviewed Aspirin/Acetaminophen/Caffeine (Excedrin Migraine Caplet) 1 Each Tablet, 2 TAB PO Q6H PRN for MIGRAINE, (Reported) Entered as Reported by: JAMIE DUMONT on 01/21/171533 Last Action: Last Taken Edited Benzonatate (Tessalon Perles) 100 Mg Capsule, 100-200 MG PO TID PRN for COUGH, (Reported) Entered as Reported by: JAMIE DUMONT on 01/21/17 1507 Budesonide (Pulmicort) 1 Mg/2 Ml Ampul.neb, 1 MG NEB BID, (Reported) Entered as Reported by: JAMIE DUMONT on 01/21/171533 Cetirizine HCl (Cetirizine HCl) 10 Mg Tablet, 10 MG PO DAILY, (Reported) Entered as Reported by: MARÍA COWAN on 10/09/16 111 Diclofenac Sodium (Diclofenac Sodium) 100 Gm Gel..gram., 2 GM TOP BID PRN for PAIN, (Reported) Entered as Reported by: JAMIE DUMONT on 01/21/17 153 Fluticasone/Vilanterol (Breo Ellipta 200-25 Mcg INH) 1 Each Blst.w.dev, 1 EACH IH, (Reported) Entered as Reported by: GARLAND SHANE on 08/04/21 1103 Last Action: New Order Gabapentin (Gabapentin) 100 Mg Capsule, 200 MG PO BID, (Reported) Entered as Reported by: JAMIE DUMONT on 01/21/17 153 Hydroxychloroquine Sulfate (Hydroxychloroquine Sulfate) 200 Mg Tablet, 200 MG PO BID, (Reported) Entered as Reported by: MARÍA COWAN on 10/09/16 111 Ibuprofen (Ibuprofen) 600 Mg Tablet, 600 MG PO Q6H Prescribed by: HUMA SCOTT on 08/13/17 154 Magnesium Oxide (Magnesium) 400 Mg Capsule, 400 MG PO BID, (Reported) Entered as Reported by: JAMIE DUMONT on 01/21/17 153 Melatonin/Pyridoxine (Melatonin 5 mg Tablet) 1 Each Tablet, 5 MG PO HS, (Reported) Entered as Reported by: JAMIE DUMONT on 01/21/17 153 Metoprolol Succinate (Metoprolol Succinate) 50 Mg Tab.er.24h, 50 MG PO BID, (Reported) Entered as Reported by: JAMIE DUMONT on 01/21/17 1507 Mycophenolate Mofetil (Mycophenolate Mofetil) 500 Mg Tablet, 1,000 MG PO BID, (Reported) Entered as Reported by: JAMIE DUMONT on 01/21/17 153 Nystatin (Nystatin) 100,000 Unit/1 Ml Oral.susp, 6 ML MM QID, (Reported) Entered as Reported by: JAMIE DUMONT on 01/21/17 153 Omeprazole (Omeprazole) 40 Mg Capsule.dr, 40 MG PO DAILY, (Reported) Entered as Reported by: MARÍA COWAN on 10/09/16 111 Oxycodone HCl/Acetaminophen (Percocet 10-325 mg Tablet) 1 Each Tablet, 1 EACH PO PRN Prescribed by: HUMA SCOTT on 08/13/17 154 Potassium Chloride (Potassium Chloride) 20 Meq Tab.er.prt, 20 MEQ PO DAILY, (Reported) Entered as Reported by: JAMIE DUMONT on 01/21/17 150 Prednisone (Prednisone) 20 Mg Tab, 40 MG PO DAILY Prescribed by: MACARIO TUCKER on 01/06/181903 Promethazine HCl/Codeine (Prometh-Codein 6.25-10 mg/5 ml) 5 Ml Syrup, 5 ML PO Q6H PRN for COUGH Prescribed by: MACARIO TUCKER on 01/06/181903 Sacubitril/Valsartan (Entresto 24 mg-26 mg Tablet) 1 Each Tablet, 1 TAB PO BID, (Reported) Entered as Reported by: JAMIE DUMONT on 01/21/17 150 Spironolactone (Spironolactone) 25 Mg Tablet, 25 MG PO DAILY, (Reported) Entered as Reported by: JAMIE DUMONT on 01/21/17 150 Sumatriptan (Sumatriptan) 5 Mg [place], 5 MG NS UD PRN for MIGRAINE, (Reported) Entered as Reported by: MARÍA COWAN on 10/09/16 1112 Review of Systems Review of Systems Constitutional: see HPI EENTM: see HPI Respiratory: see HPI, cough Cardiovascular: no symptoms reported Genitourinary: no symptoms reported Musculoskeletal: no symptoms reported Skin: no symptoms reported Psychiatric/Neurological: No Symptoms Reported Hematologic/Lymphatic: No Symptoms Reported Past Mrpmmlp-Vzghsk-Smobkv Hx Immunizations Up To Date Tetanus Booster (TDap): Unknown PED Vaccines UTD: No Seasonal Allergies Seasonal Allergies: Yes Past Medical History Surgeries: Yes (BREAST AUGMENTATION, ESWL, NOVASURE ABLATION) Breast, Hysterectomy, Tubal Ligation Respiratory: Yes (CPAP) Asthma, Chronic Bronchitis, Sleep Apnea Currently Using CPAP: Yes Currently Using BIPAP: No Cardiac: Yes (CARDIAC SYMPTOMS HAVE IMPROVED SINCE NEW MED IN DECEMBER 2016) Cardiomyopathy, Chronic Edema/Swelling, Congenital Heart Disease, Palpitations, Valvular Heart Disease Neurological: Yes (HASNT HAD ONE SINCE 2002-FROM MEDICATION) Seizure Disorder Reproductive Disorders: Yes (DUB, UTERINE POLYP) Female Reproductive Disorders: Menstrual Problems SYSTEM ANALYST History: Tubal Ligation Sexually Transmitted Disease: No HIV/AIDS: No Genitourinary: Yes Kidney Stones Gastrointestinal: Yes Gastroesophageal Reflux Musculoskeletal: Yes (HX COCCYX FX ) Degenerate Disk Disease, Arthritis, Rheumatoid Arthritis, Chronic Back Pain Endocrine: Yes Lupus Loss of Vision: Bilateral Hearing Impairment: Denies Cancer: No Psychosocial: Yes (DID, RELATED TO NEW ONSET LUPUS, NO RECENT ISSUES) ADD/ADHD, Personality Disorder Integumentary: No Blood Disorders: Yes (ANEMIA) Adverse Reaction/Blood Tranf: No (N/A) Family Medical History Asthma 19 MOTHER Thyroid disease 19 MOTHER No Family History of: Alzheimer's disease Completed stroke Diabetes mellitus Hypertension Myocardial infarction Physical Exam Vital Signs - First Documented 08/04/21 10:40 Temp 37.1 Pulse 119 Resp 22 B/P (MAP) 103/72 (82) Pulse Ox 98 O2 Delivery Room Air Capillary Refill : Height: 5'4.00" Weight: 260lbs. 4.0oz. 118.824944gr; 40.4 BMI Method:Stated General Appearance: WD/WN, no apparent distress Eyes: Bilateral Eye Normal Inspection, Bilateral Eye PERRL, Bilateral Eye EOMI Neck: non-tender, full range of motion Respiratory: normal breath sounds, no respiratory distress, no accessory muscle use Cardiovascular: regular rate, rhythm, no murmur Gastrointestinal: normal bowel sounds, non tender, soft Neurologic/Psychiatric: alert, normal mood/affect, oriented x 3 Skin: normal color, warm/dry Progress/Results/Core Measures Suspected Sepsis SIRS Temperature: Pulse: Respiratory Rate: Blood Pressure / Mean: Results/Orders Lab Results Laboratory Tests Test 08/04/21 10:39 Range/Units Influenza Type A (RT-PCR) Not Detected Not Detecte Influenza Type B (RT-PCR) Not Detected Not Detecte SARS-CoV-2 RNA (RT-PCR) Not Detected Not Detecte My Orders Orders - MACARIO TUCKER APRN Covid 19 Inhouse Test (08/04/21 10:38) Chest 1 View, Ap/Pa Only (08/04/21 10:43) Influenza A And B By Pcr (08/04/21 10:39) Vital Signs/I&O 08/04/21 10:40 Temp 37.1 Pulse 119 Resp 22 B/P (MAP) 103/72 (82) Pulse Ox 98 O2 Delivery Room Air Capillary Refill : Departure Impression Primary Impression: Upper respiratory infection Disposition: 01 HOME, SELF-CARE Condition: Stable Departure-Patient Inst. Decision time for Depature: 12:03 Referrals: GABBY BLEVINS MD (PCP) Primary Care Physician IRENE PETERS (Family) Primary Care Physician Patient Instructions: Sinusitis in Adults Add. Discharge Instructions: All discharge instructions reviewed with patient and/or family. Voiced understanding. Scripts Amoxicillin/Potassium Clav (Augmentin 875-125 Tablet) 1 Each Tablet 1 EACH PO BID, #14 TAB 0 Refills Prov: MACARIO TUCKER APRN 08/04/21 MACARIO TUCKER APRN Aug 04, 2021 10:47
[2021-08-04] MEDS ORDERED: FLUT1BLS IH (11:03)
--- NOTE | 2021-08-04 11:12 | Diagnostic Imaging Report ---
INDICATION: Congestion, headache and cough. TIME OF EXAM: 11:04 AM Correlation is made with prior chest 01/06/2018. The heart size is normal. The pulmonary vascularity is unremarkable. The lungs are clear. No infiltrate, effusion or pneumothorax is detected. Impression: No acute cardiopulmonary process is detected. Dictated by: Dictated on workstation # [id number]
[2021-08-04] MEDS ORDERED: AMOX-358 PO (12:06)
[2021-08-04 12:14] VITALS: BP 103/72
== END 2021-08-04 12:14 | disposition home or self-care (01) ==
LOC: EDUNIT# 10:27 → ER 10:31
DX: J06.9 Acute upper respiratory infection, unspecified (principal); J45.909 Unspecified asthma, uncomplicated; G47.30 Sleep apnea, unspecified; K21.9 Gastro-esophageal reflux disease without esophagitis; G40.909 Epilepsy, unspecified, not intractable, without status epilepticus; G89.29 Other chronic pain; M54.9 Dorsalgia, unspecified; Z20.822 Contact with and (suspected) exposure to COVID-19; Z79.82 Long term (current) use of aspirin; Z79.891 Long term (current) use of opiate analgesic; Z79.899 Other long term (current) drug therapy
CPT/HCPCS: 71045; 87636

== ENCOUNTER → 2023-04-29 | Outpatient (CLI) | payer MEDICARE, MEDICAID ==
[~2023-04-29] MED LIST changes: +ALBU8.5H6 IH; +AMOX-358 PO; -ASPI-789 PO; +ASPI1TAB23 PO; +CYCL10TA25 PO; +FLUT1BLS IH; -HYDR200T46 PO; +HYDR200T71 PO; +POTA-179 PO; -POTA20TA15 PO; -SUMA5SPR2 NS; +SUMA5SPR6 NS
== END ==
LOC: CARD 10:26
PROVIDERS: ATTEND Internal Medicine Cardiovascular Disease
DX: I34.0 Nonrheumatic mitral (valve) insufficiency (principal); I11.9 Hypertensive heart disease without heart failure; I25.10 Atherosclerotic heart disease of native coronary artery without angina pectoris
CPT/HCPCS: 93306